=== PATIENT | male | born 1965 | race Caucasian/White ===

== ENCOUNTER → 2020-07-12 15:45 | Outpatient (CLI) | payer OTHER, SELFPAY ==
[2016-09-19 11:51] VITALS: BMI 30.8
--- NOTE | 2020-07-12 15:52 | RAD_ITS ---
STUDY: X-RAY - LEFT SHOULDER REASON FOR EXAM: Male, 55 years old. Bilateral shoulder pain, left worse TECHNIQUE: 4 view(s) of the shoulder. COMPARISON: None. FINDINGS: Normal glenohumeral articulation. Normal acromioclavicular joint. Normal acromion. Normal humeral head and visualized proximal humerus. The soft tissue structures are unremarkable. Normal visualized pulmonary apex. RAD/Shoulder min 2 Views IMPRESSION: Normal x-ray examination of the shoulder. Electronically Signed: Chong Hernandez MD at 11:16 EST , Service support ,
== END ==
PROVIDERS: PCP Family Medicine; Referring Provider Family Medicine; Visit Provider Family Medicine
DX: M25.511 Pain in right shoulder (principal); M25.512 Pain in left shoulder
CPT/HCPCS: 73030

== ENCOUNTER 2020-09-08 14:00 | Outpatient (RCR) | payer OTHER, SELFPAY ==
--- NOTE | 2020-07-22 11:18 | HP.PTEVAL_ITS ---
Patient's Visit Information ASHOK MENDES is a 55 year old M referred to Physical Therapy by Dr. Deb Marroquin MD with a diagnosis of B shoulder pain. Date of Evaluation: 07/22/20 Physical Therapist: Sage Roe DPT, OCS, CSCS - Visit Plan Frequency: 2x /Week Duration: 4-6 Weeks Plan: 2x/week for 3-6 for. 1. US L biceps tendon groove nonthermal. Manaul grade 1 joint mobs and PROM L shoulder for pain, pec stretches. Strength posture and RC and progress to I home program(possibly gym based on patient wishes). Activitiy modification at home for posture adn sleeping position. - Subjective Shoulder pain B L>R. Chops a lot of firewood and it hurts. Been hurting since or march. No specific injury. Pain is achy in top of L shoulder , hard to lift L arm due to anterior pain. R one hurts just not as intense. Wakes him up at night 4-5x/week. 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 Worse if on computer alot. Leaning forward on shoulders hurts. 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 Runs on TM without pain during. Basic ADLs are getting doen and lfting arm to put shirt on or wash hair can hurt. Has h/o pinched nerve in neck with L scap pain at times. - Pain L shoulder Pain Intensity (Out of 10): 0 Pain Intensity Range: 0, 4 Comment: reaching out is worse. R shoulder Pain Intensity (Out of 10): 0 Pain Intensity Range: 0, 3 - Objective Posture is forward head and protracted scap max. Tightness obvious in pecs. Tender to palpation max over L biceps tendon grrove adn min on R, Min in B supraspinatus. + HKand + neer impringement tests, + speeds L, + supination pain L. - ext rotation lag test. Full AROM shoulder flexion but painful end range of elevation. Scapula moving well intenitonally but slow to move with elevation of UE. Full IR and ER B shoulders but pain end IR. Full elbow and wrist aROM withotu pain. Strength is 4+/5 in flexion 4 and painful L abduction B 4+ IR and pain on L, 4 ext rotation without pain. elbow strength 5/5 B with some slight L shoulder pain with flexion. reflexes 2/3 bi and tri B. Sensation B UE WNL to gross light touch. Cervical AROM WFL and without pain today, - c/s compression test. Walks and transfers I and easily. - Goals Goal 1:: non esitant and full aROM elevation B shoulders without pain Goal Time Frame: 4-6 Weeks Goal 2:: Pt feel 80% better and pain 1/10 at worst and manageable. Goal Time Frame: 4-6 Weeks Goal 3:: Quick DASH score 5 or better. Goal Time Frame: 4-6 Weeks Goal 4:: Type at work withotu increased pain Goal Time Frame: 4-6 Weeks Goal 5:: I approp HEP to minimize future problems Goal Time Frame: 4-6 Weeks - Rehabilitation Potential Physical Therapy Diagnosis: L>R B shoulder biceps impiongement tendonitis Rehabilitation Potential: Good - Anticipated Interventions Patient/Client Instruction: Educate patient on: Condition, Plan of Care For the Purpose of:: To decrease pain, To increase tolerance to activity/condition/position, To improve ability of physical actions for home/community/work/leisure Therapeutic Exercise to Include: Strength training, Postural training, Flexibilty training, Passive ROM, Active ROM, Scapular Strength/Stabilization For the Purpose of:: To decrease pain, To improve muscle performance and motor function, To increase tolerance to activity/condition/position, To improve ability of physical actions for home/community/work/leisure Manual Therapy Techniques to Include: Mobilization For the Purpose of:: To decrease pain Cryotherapy (ice pack, ice massage): Yes Ultrasound (thermal/non thermal): Yes - nonthermal For the Purpose of:: To decrease pain, To decrease swelling/inflammation Thank you for the opportunity to evaluate your patient. For Medicare and Medicare HMO plans, please review the plan of care and approve it. It will need to be FAXED BACK to us at [phone] for Medicare purposes. For Medicare only, by signing this I certify the plan of care. Please let me know if there are questions or concerns regarding this plan of care. Physician Signature: Date:
--- NOTE | 2020-08-20 10:48 | HP.PTREVAL ---
Dr. Deb Marroquin MD, It has been my pleasure to treat ASHOK MENDES over the last 8 visits for B shoulder pain. Please see the progress note below for an update on the physical therapy plan of care! Subjective: Improvement as achiness sitting around is gone. Lifting up or out is still painful to 3/0 trasniently at 90 degrees. Sleep is still bothersome at times. Typing at work still hurts at times if he does it too long. Objective/Function: Full aROM L shoulder bu tpainful arc with abduction especially LLA transiently. Tender over supraspinatus L minimally. Strength is improving. Ext rotation 4 adn no pain, flexion 4 no pain, abduction 4- and pain. Overall slowly better. Progressing slowly toward goals and appropriate to cotninue HEP strengthening and monitor in therapy in 3 weeks for continued progress toward goals with fair prognosis. Plan Plan: f/u 2-3 weeks to check abd, strength, adn overall pain levels and progress HEP to diagonals or back to doctor if not improving. Goals Goal 1:: non esitant and full aROM elevation B shoulders without pain Goal Time Frame: 4-6 Weeks Goal Progress: still painful arc Goal 2:: Pt feel 80% better and pain 1/10 at worst and manageable. Goal Time Frame: 4-6 Weeks Goal Progress: Progressing Goal 3:: Quick DASH score 5 or better. Goal Time Frame: 4-6 Weeks Goal Progress: Progressing Goal 4:: Type at work withotu increased pain Goal Time Frame: 4-6 Weeks Goal Progress: Progressing Goal 5:: I approp HEP to minimize future problems Goal Time Frame: 4-6 Weeks Goal Progress: Goal Met Anticipated Interventions Patient/Client Instruction: Educate patient on: Condition, Plan of Care For the Purpose of:: To decrease pain, To increase tolerance to activity/condition/position, To improve ability of physical actions for home/community/work/leisure Therapeutic Exercise to Include: Strength training, Postural training, Flexibilty training, Passive ROM, Active ROM, Scapular Strength/Stabilization For the Purpose of:: To decrease pain, To improve muscle performance and motor function, To increase tolerance to activity/condition/position, To improve ability of physical actions for home/community/work/leisure Manual Therapy Techniques to Include: Mobilization For the Purpose of:: To decrease pain Cryotherapy (ice pack, ice massage): Yes Ultrasound (thermal/non thermal): Yes - nonthermal For the Purpose of:: To decrease pain, To decrease swelling/inflammation Please do not hesitate to contact me at [phone] by phone or if you have questions or concerns regarding this new plan of care! Sincerely, Sage Roe, DPT, OCS, CSCS
--- NOTE | 2020-09-08 14:17 | HP.PTDCSUM ---
It has been my pleasure to treat ASHOK MENDES referred by Dr. Deb Marroquin MD, with the diagnosis of B shoulder pain for a total of 9 visit(s). Discharge Date: 09/08/20 Please see the following information for a summary of their discharge status. Subjective: A little better. Not noticing pain as often. Can lift weight out to side now. Not as intense of pain. Pain is 0-4/10 usually worse lying in bed if he lies on it. Sometimes it lingers. Keeps him up sometimes if he lies wrong. HEP going OK, slightly painful at first but improving. activities are pretty normal, has to be careful throwing firewood up high adn sudden movement like to catch a goat can hurt. Trimming fence rope 10 days ago and something popped but pain wasn't happened. L shoulder Pain Intensity (Out of 10): 0 R shoulder Pain Intensity (Out of 10): 0 % Improvement: 55 Objective/Function: - ext rotation lag test. - sulcus. slight positive labral test. Full aROM. Strength is 4+/5 in rotations with some slight IR pain. abduction is 4 and painful, flexion is 4+ and painfree. Pt doing well overall but slow and frustrated with progression Goal 1:: non esitant and full aROM elevation B shoulders without pain Goal Progress: still painful arc abd Goal 2:: Pt feel 80% better and pain 1/10 at worst and manageable. Goal Progress: 55% Goal 3:: Quick DASH score 5 or better. Goal Progress: Progressing Goal 4:: Type at work withotu increased pain Goal Progress: Goal Met Goal 5:: I approp HEP to minimize future problems Goal Progress: Goal Met Plan: d/c, pt to [facility] strengthening and back to doctor for next medical step(inj, MRI) Discharge Comments: Pt back to doctor for next medical step. If there are questions or concerns regarding this patient's physical therapy, please feel free to call me at [phone]. Thank you for the referral of this patient. Sincerely, Sage Roe, DPT, OCS, CSCS
== END 2020-09-08 19:00 | disposition home or self-care (01) ==
LOC: PT 14:00
PROVIDERS: PCP Family Medicine; Referring Provider Family Medicine; Visit Provider Family Medicine
DX: M25.512 Pain in left shoulder (principal); M25.511 Pain in right shoulder
CPT/HCPCS: 97035; 97110; 97162; 97164; 97530

== ENCOUNTER → 2020-09-10 11:59 | Outpatient (CLI) | payer OTHER, SELFPAY ==
[2016-09-19 11:51] VITALS: BMI 30.8
[2020-09-10 15:16] LABS: Absolute Lymphocyte Count 2.57 X10^3/uL (0.83-4.51); Absolute Neutrophil Count 5.2 X10^3/uL (2.0-7.7); Basophil# 0.09 X10^3/uL; Eosinophil# 0.19 X10^3/uL; Eosinophils% 2.2 % (0-5); Hemoglobin 14.4 g/dL (13.0-16.5); Lymphocyte # 2.57 X10^3/ul (4.0); Lymphocyte % 29.2 % (19-41); Mean Corpuscular Hgb 29.6 pg (27.0-32.0); Mean Corpuscular Volume 92.4 fL (80-94); Mean Platelet Vol. 11.1 fl (6.2-12.0); NRBC Flagged by Analyzer 0 % (0-5); Neutrophil # 5.23 X10^3/uL (2.7-7.7); Neutrophil % 59.4 % (47-70); Platelet Count 283 K/mm3 (150-450); RBC Distribution Width CV 12.4 % (11.6-14.6); RBC Distribution Width SD 42.5 fl (35.1-43.9); Red Blood Count 4.87 M/mm3 (4.6-6.2); White Blood Count 8.8 K/mm3 (4.4-11.0)
[2020-09-10 15:30] LABS: Erythrocyte Sedimentation Rate 7 mm/hr (0-20)
[2020-09-10 15:45] LABS: CRP < 2.90 mg/L (0.0-3.0); Rheumatoid Factor < 10.0 IU/mL (<15); Uric Acid 5.6 mg/dL (3.5-7.2)
[2020-09-13 16:15] LABS: ANTINUCLEAR ANTIBODIES DIRECT Negative (Negative)
== END ==
PROVIDERS: PCP Family Medicine; Referring Provider Family Medicine; Visit Provider Family Medicine
DX: M25.511 Pain in right shoulder (principal); M25.512 Pain in left shoulder
CPT/HCPCS: 36415; 84550; 85025; 85652; 86038; 86140; 86431

== ENCOUNTER → 2021-03-23 16:30 | Outpatient (CLI) | payer OTHER, SELFPAY ==
[2021-03-23 18:32] LABS: PSA,Total - Annual Screen 1.04 ng/mL (0.00-4.00)
== END ==
PROVIDERS: PCP Family Medicine; Referring Provider Family Medicine; Visit Provider Family Medicine
DX: Z00.00 Encounter for general adult medical examination without abnormal findings (principal)
CPT/HCPCS: 36415; 84153; G0103

== ENCOUNTER → 2021-04-07 08:35 | Outpatient (CLI) | payer OTHER, SELFPAY ==
--- NOTE | 2021-04-07 08:38 | EKG12_ITS ---
Test Reason : PREOP Blood Pressure : / mmHG Vent. Rate : 066 BPM Atrial Rate : 066 BPM P-R Int : 180 ms QRS Dur : 076 ms QT Int : 374 ms P-R-T Axes : 022 -07 017 degrees QTc Int : 392 ms Normal sinus rhythm Septal infarct , age undetermined, cannot be excluded Abnormal ECG Confirmed by STEFFANIE SLAUGHTER, RENZO ([id number]), graphics editor IRINA JIMENEZ ([id number]) on 04/08/2021 9:32:00 AM Referred By: Edward Ramires Confirmed By:RENZO VALIENTE MD
[2021-04-07 09:16] LABS: Hematocrit 45.2 % (40-54); Hemoglobin 15.2 g/dL (13.0-16.5); Mean Corp Hgb Conc 33.6 g/dL (32-36); Mean Corpuscular Hgb 29.9 pg (27.0-32.0); Mean Platelet Vol. 9.8 fl (6.2-12.0); Platelet Count 292 K/mm3 (150-450); RBC Distribution Width CV 11.8 % (11.6-14.6); RBC Distribution Width SD 38.2 fl (35.1-43.9); Red Blood Count 5.08 M/mm3 (4.6-6.2); White Blood Count 8.8 K/mm3 (4.4-11.0)
[2021-04-07 09:41] LABS: Anion Gap 4 (5-15); BUN 19 mg/dL (7-18); BUN/Creat Ratio 16.1 RATIO (10-20); Calcium,Total 9.1 mg/dL (8.5-10.1); Chloride 104 mmol/L (98-107); Creatinine, Serum 1.18 mg/dL (0.70-1.30); EST Glomerular Filtration Rate 68 mL/min (>60); Est Glom Filt Rate - Afr Amer 82 mL/min (>60); Glucose 100 mg/dL (74-106); Potassium 4.3 mmol/L (3.5-5.1); Sodium Level 139 mmol/L (136-145)
== END ==
PROVIDERS: PCP Family Medicine; Referring Provider Urology; Visit Provider Urology
DX: Z01.810 Encounter for preprocedural cardiovascular examination (principal); J45.20 Mild intermittent asthma, uncomplicated; Z03.818 Encounter for observation for suspected exposure to other biological agents ruled out; Z01.812 Encounter for preprocedural laboratory examination
CPT/HCPCS: 36415; 80048; 85027; 87635; 93005; C9803; U0005; U0003

== ENCOUNTER → 2021-04-15 15:07 | Outpatient (CLI) | payer OTHER, SELFPAY ==
--- NOTE | 2021-04-15 08:12 | SPE_PTH ---
PATIENT: ASHOK MENDES LOC: [facility] U#:[id number] AGE/SX: 60/M ROOM: RE04/15/[address]: Dr. Edward Ramires MD : 1965 BED: DIS: SPEC #: [id number] RECD: 04/15/21 14:51 STATUS: CYNDEE FRIEDMAN #: [id number] AMPARO: 04/15/21 08:[address]: Edward Ramires DEPT: SURGICAL PATHOLOGY RECD BY: Gregg Cancino ENTERED: 04/19/21 08:28 SP TYPE: SPERMATOCCheryl ADRIAN DR: Dr. 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 AM:connor 04/20/2021 MICROSCOPIC DESCRIPTION Slides are reviewed. GROSS DESCRIPTION Received is one container labeled with the patient's name and not further designated. The specimen consists of a piece of adipose tissue measuring 5 x 3.5 x 2.5 cm. The specimen is partially disrupted. The external surface is inked. Sections reveal yellow adipose cut surfaces without areas of hemorrhage, necrosis or cystic degeneration. [employer] sections are submitted in three cassettes. / SJ:connor 04/19/21 TC:1 CPT: 03338
== END ==
PROVIDERS: PCP Family Medicine; Visit Provider Urology
DX: D17.6 Benign lipomatous neoplasm of spermatic cord (principal)
CPT/HCPCS: 88304

== ENCOUNTER → 2021-10-11 | Outpatient (CLI) | payer OTHER, SELFPAY ==
--- NOTE | 2021-10-11 12:49 | RAD_ITS ---
STUDY: X-RAY - PARANASAL SINUSES REASON FOR EXAM: Male, 56 years old. Headache, pressure behind eyes TECHNIQUE: 3 view(s) of the paranasal sinuses were obtained. COMPARISON: None. FINDINGS: Normal visualized frontal, maxillary, ethmoidal and sphenoid sinuses. Normal visualized facial bones. The soft tissue structures are unremarkable. RAD/Sinuses min 3 Views IMPRESSION: Normal x-rays of the paranasal sinuses. Electronically Signed: Chong Hernandez MD at 14:47 EDT ,
== END | disposition home or self-care (01) ==
LOC: MTRAD 12:49
PROVIDERS: PCP Family Medicine; Referring Provider Family Medicine; Visit Provider Family Medicine
DX: J32.9 Chronic sinusitis, unspecified (principal)
CPT/HCPCS: 70220

== ENCOUNTER → 2021-11-02 | Outpatient (CLI) | payer OTHER, SELFPAY ==
--- NOTE | 2021-11-02 14:51 | CT_ITS ---
STUDY: CT BRAIN WITHOUT and WITH CONTRAST REASON FOR EXAM: Male, 56 years old. new on set headaches TECHNIQUE: Transaxial CT imaging of the brain was performed without and with Contrast: 50 CC ISOVUE 300 IV administration of intravenous contrast material. Radiation: CTDIvol = [44.99] mGy, DLP = [1580.97] mGy-cm Individualized dose optimization techniques were used for this CT. COMPARISON: None FINDINGS: Normal calvarium. Normal soft tissues. Normal size ventricles and extra-axial spaces for the patient''s age. Normal white matter tracts of the cerebral hemispheres. Normal basal ganglia and thalami. Normal brainstem. Normal cerebellum. There is no intracranial hemorrhage. There are no findings of an acute ischemic infarction. Normal visualized paranasal sinuses. ASPECTS 10 CT/Brain/Head W/WO Contrast IMPRESSION: There are no acute intracranial findings. Electronically Signed: Maximiliano Valenzuela MD at 15:56 EDT ,
== END | disposition home or self-care (01) ==
LOC: CT 14:50
PROVIDERS: PCP Family Medicine; Referring Provider Family Medicine; Visit Provider Family Medicine
DX: R51.9 Headache, unspecified (principal)
CPT/HCPCS: 70470; Q9967

== ENCOUNTER → 2022-05-03 | Outpatient (CLI) | payer OTHER, SELFPAY ==
[2022-05-03 18:32] LABS: PSA,Total - Annual Screen 1.22 ng/mL (0.00-4.00)
== END | disposition home or self-care (01) ==
LOC: MFPLAB 16:21
PROVIDERS: PCP Family Medicine; Visit Provider Family Medicine
DX: Z00.00 Encounter for general adult medical examination without abnormal findings (principal); Z12.5 Encounter for screening for malignant neoplasm of prostate
CPT/HCPCS: 36415; 84153; G0103

== ENCOUNTER → 2022-08-11 | Outpatient (CLI) | payer OTHER, SELFPAY ==
--- NOTE | 2022-08-11 12:14 | CT_ITS ---
STUDY: CT ABDOMEN WITH CONTRAST REASON FOR EXAM: Male, 57 years old. 3 week history of left lower quadrant pain. History of lymphoma. RADIATION DOSAGE (If Supplied By Facility): CTDIvol = ( 15.20 ) mGy, DLP = ( 1136.29 ) mGycm TECHNIQUE: Transaxial images were obtained post I.V. administration of Oral and amp; IV BREEZA NEUTRAL and amp; 100mL Isovue-300, and with oral contrast. Sagittal and coronal images were reconstructed. Individualized dose optimization techniques were used for this CT. COMPARISON: Comparison is made with prior study dated May 18, 2017. FINDINGS: The visualized lung bases are unremarkable. The visualized portions of the heart are within normal limits. There is hepatomegaly with diffuse hepatic enlargement. Normal gallbladder and extrahepatic biliary system. Normal spleen. Normal pancreas. Normal bilateral adrenal glands. There are 2 adjacent tiny nonobstructive intrarenal calculi in the upper pole calyx of the right kidney. 3 mm nonobstructive catheter is in the upper pole calyx of the left kidney. Normal visualized stomach. Normal small intestine. There are scattered colonic diverticula consistent with diverticulosis. The appendix is visualized and appears normal. Normal abdominal aorta. Normal inferior vena cava. Normal retroperitoneum. Prostate enlargement. The prostate measures 4.4 cm x 5.8 cm. Central prostatic calcification. Normal abdominal wall. Normal osseous structures. CT/Abdomen WITH IV Contrast IMPRESSION: Stable bilateral small intrarenal calculi. Electronically Signed: Chong Hernandez MD at 14:53 EST ,
[2022-08-11 18:41] LABS: Hepatitis B Surface Antibody Non-Reactive; Hepatitis B Surface Antigen Non-Reactive (Nonreactive); Hepatitis C Antibody Non-Reactive (Nonreactive)
[2022-08-14 13:08] LABS: Hepatitis A AB, Total Negative (Negative); Hepatitis B Core Ab Total Negative (Negative); Hepatitis Be Ab Negative (Negative); Hepatitis Be Ag Negative (Negative)
[2022-08-14 18:52] LABS: Hepatitis B Core AB IgM Negative (Negative)
== END | disposition home or self-care (01) ==
PROVIDERS: PCP Family Medicine; Referring Provider Family Medicine; Visit Provider Family Medicine
DX: R10.12 Left upper quadrant pain (principal)
CPT/HCPCS: 36415; 74160; 86704; 86705; 86706; 86707; 86708; 86803; 87340; 87350; Q9967

== ENCOUNTER → 2022-09-05 | Outpatient (CLI) | payer OTHER, SELFPAY ==
[2022-09-05 18:12] LABS: Hematocrit 44.2 % (40-54); Hemoglobin 15.1 g/dL (13.0-16.5); Mean Corp Hgb Conc 34.2 g/dL (32-36); Mean Corpuscular Hgb 30.1 pg (27.0-32.0); Mean Corpuscular Volume 88.2 fL (80-94); Mean Platelet Vol. 10.7 fl (6.2-12.0); Platelet Count 264 K/mm3 (150-450); RBC Distribution Width SD 39.1 fl (35.1-43.9); Red Blood Count 5.01 M/mm3 (4.6-6.2)
[2022-09-05 18:21] LABS: AST(SGOT) 17 U/L (15-37); Alanine Aminotransfer ALT/SGPT 30 U/L (16-61); Albumin, Serum 3.7 g/dL (3.2-5.0); Alkaline Phosphatase 91 U/L (45-117); Anion Gap 5 (5-15); BUN 22 mg/dL (7-18); BUN/Creat Ratio 19.8 RATIO (10-20); Chloride 108 mmol/L (98-107); Creatinine, Serum 1.11 mg/dL (0.70-1.30); EST Glomerular Filtration Rate 73 mL/min (>60); Est Glom Filt Rate - Afr Amer 88 mL/min (>60); Ferritin 153 ng/mL (26-388); Globulin 3.6 g/dL (2.2-4.2); Glucose 100 mg/dL (74-106); Potassium 4.2 mmol/L (3.5-5.1); Protein, Total 7.3 g/dL (6.4-8.2); Sodium Level 138 mmol/L (136-145)
[2022-09-07 14:09] LABS: ANTINUCLEAR ANTIBODIES DIRECT Negative (Negative)
[2022-09-08 09:45] LABS: Alpha Antitrypsin Serum 126 mg/dL (101-187); Anti-Mitochondrial AB <20.0 Units (0.0-20.0)
[2022-09-08 09:46] LABS: Anti-Smooth Muscle ABS 7 Units (0-19)
== END | disposition home or self-care (01) ==
LOC: MTLAB 14:43
PROVIDERS: PCP Family Medicine; Referring Provider Internal Medicine Gastroenterology; Visit Provider Internal Medicine Gastroenterology
DX: R16.0 Hepatomegaly, not elsewhere classified (principal)
CPT/HCPCS: 36415; 80053; 82103; 82728; 83516; 85027; 86038

== ENCOUNTER → 2023-04-18 | Outpatient (CLI) | payer OTHER, SELFPAY ==
--- NOTE | 2023-04-18 08:51 | US_ITS ---
STUDY: ABDOMINAL ULTRASOUND - RIGHT UPPER QUADRANT REASON FOR VISIT: Male, 58 years old ruq pain, x 2 months, intermittent TECHNIQUE: Ultrasound evaluation of the right upper quadrant was performed with real-time and static osei-scale imaging. TECHNICAL QUALITY: Adequate. COMPARISON: Comparison is made with prior CT scan of abdomen pelvis dated August 11, 2022. FINDINGS: Liver: The liver measures 16.2 cm. There is increased echogenicity consistent with fatty infiltration. The bile ducts are within normal limits. There is hepatic color flow. The direction of portal flow is hepatopetal. There is no demonstrated mass lesion. Gallbladder: Normal distended gallbladder. The gallbladder wall measures 2.8 mm. There is a negative sonographic Rodriguez''s sign. There is no pericholecystic fluid. There are no gallstones. Common Bile Duct (C.B.D.): The common bile duct measures 4.6 mm. Pancreas: Normal size of the head, body and tail of the pancreas. There is normal echogenicity of the pancreas. There is no demonstrated pancreatic mass or cyst. Right Kidney: Normal size of the right kidney. The right kidney measures 10.2 cm x 5.9 cm x 5.3 cm. Normal renal cortex. The right cortex measures 1.9 cm. There is no demonstrated renal mass or cyst. There is no right hydronephrosis. US/Abdomen Limited IMPRESSION: Fatty infiltration of the liver. Electronically Signed: Chong Hernandez MD at 15:09 EST ,
== END | disposition home or self-care (01) ==
LOC: US 08:50
PROVIDERS: PCP Family Medicine; Referring Provider Family Medicine; Visit Provider Family Medicine
DX: R10.11 Right upper quadrant pain (principal)
CPT/HCPCS: 76705

== ENCOUNTER → 2023-05-17 | Outpatient (CLI) | payer OTHER, SELFPAY ==
--- NOTE | 2023-05-17 09:51 | NM_ITS ---
CLINICAL: 58-year-old male with history of abdominal pain. RADIONUCLIDE HEPATOBILIARY SCINTIGRAPHY COMPARISON: Abdominal ultrasound report 04/18/2023 FINDINGS: Following the intravenous administration of 5.5 mCi of 99m Tc Mebrofenin, hepatobiliary images reveal: 1. Relatively prompt and homogeneous radiopharmaceutical concentration is noted by a normal sized liver. No parenchymal defects are identified. 2. Gallbladder activity is identified at 15 minutes post radiopharmaceutical administration. 3. Small intestinal tract is observed at 45 minutes following tracer injection. 4. Washout of the radiopharmaceutical by the hepatic parenchyma appears qualitatively normal. Cholecystokinin (0.02 ug/kg) was administered intravenously over a 30-minute period. The post CCK gallbladder ejection fraction calculated at 20 minutes following Cholecystokinin administration was noted to be < 5 % (normal greater than 35%). NM/Hepatobilliary Imaging IMPRESSION: 1. ABNORMAL 99m Tc Mebrofenin hepatobiliary imaging examination with Cholecystokinin. A. A gallbladder ejection fraction calculated to be less than 35% following the administration of Cholecystokinin is consistent with the presence of functional hepatobiliary disease (gallbladder and/or sphincter of Oddi dyskinesia) and/or organic hepatobiliary disease (chronic acalculous cholecystitis and/or cystic duct syndrome) in patients with intermediate to high pretest probabilities of hepatobiliary illness. (Nellie Mesa et al, Journal of Nuclear Medicine 32:1695, 1991). Electronically Signed: Ralph Rao DO at 23:48 EST ,
== END | disposition home or self-care (01) ==
LOC: NM 09:50
PROVIDERS: PCP Family Medicine; Referring Provider Family Medicine; Visit Provider Family Medicine
DX: R10.11 Right upper quadrant pain (principal)
CPT/HCPCS: 78226; A9537; J2805

== ENCOUNTER → 2023-05-22 | Outpatient (CLI) | payer OTHER, SELFPAY ==
[2023-05-22 15:21] LABS: PSA,Total - Annual Screen 1.59 ng/mL (0.00-4.00)
== END | disposition home or self-care (01) ==
LOC: MFPLAB 11:35
PROVIDERS: PCP Family Medicine; Visit Provider Family Medicine
DX: Z12.5 Encounter for screening for malignant neoplasm of prostate (principal)
CPT/HCPCS: 36415; 84153; G0103

== ENCOUNTER 2023-06-12 06:00 | Day surgery (SDC) | payer OTHER, SELFPAY ==
[2023-06-12] VITALS (10 sets, daily range): BP systolic 127–175; BP diastolic 64–96; PULSE 53–67; RESP 15–16; TEMP 36.2–36.6; O2SAT 92–100; BMI 26.4
--- OUTSIDE RECORDS SUMMARY | 2023-06-12 06:05 | XMS RPT_ITS | CCD ---
Author Name Unknown Address [address] [place] [address] Organization [facility] Care Team Providers Care Wage Hand Name Role Phone Carmelita LYLE/Will GENAO Unavailable Deb Marroquin MD Primary Care Provider Del Laws MD Unavailable [phone] Attending Unavailable DEB MARROQUIN Referring Unavailable DEB MARROQUIN Primary Care Unavailable Free, Text Entry Unavailable Unavailable Julia Khan Unavailable Unavailable Ms. Julia Khan Attending Unavail able Pending, Provider Primary Care Unavailable Medications Current Medications Medication Drug Class(es) Dates Sig (Normalized) Sig (Original) [id number] 200 actuat albuterol 0.09 mg/actuat metered dose inhaler (2 sources) beta2-Adrenergic Agonist take 2 puff(s) by inhalation every six hours as needed ProAir HFA 90 mcg/inh inhalation aerosol ; 2 puff(s) inhaled every 6 hours, As Needed Quantity: 0 Refills: 0 Ordered: 09-Feb-2022 Naz Carrero Generic Substitution Allowed Problems Active Problems Problem Classification Problem Date Documented Da te Episodic/Chronic Asthma (1 source) Unspecified asthma, uncomplicated; Translations: [Unspecified asthma, uncomplicated] Onset: 02-09-2022 Chronic Non-Hodgkin`s lymphoma (2 sources) Mucosa-associated lymphoma; 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]] Onset: 10-19-2016 Chronic Other gastrointestinal disorders (2 sources) Diarrhea and vomiting; Translations: [Vomiting alone] 02-09-2022 Episodic Other nutritional; endocrine; and metabolic disorders (1 source) Obese class I; Translations: [Obesity, unspecified] Onset: 12-01-2021 12-01-2021 Chronic Unclassified (2 sources) FLU-LIKE SYM 02-09-2022 Past or Other Problems Problem Classification Problem Date Documented Da te Episodic/Chronic Abdominal pain (3 sources) Abdominal pain; Translations: [Abdominal pain, unspecified site] Onset: 02-09-2022 02-09-2022 Episodic Calculus of urinary tract (1 source) Personal history of urinary calculi; Translations: [Personal history of urinary calculi] Onset: 02-09-2022 Episodic Cancer of stomach (1 source) Personal history of other malignant neoplasm of stomach; Translations: [Personal history of other malignant neoplasm of stomach] Onset: 02-09-2022 Episodic Nausea and vomiting (1 source) Vomiting, unspecified; Translations: [Vomiting, unspecified] Onset: 02-09-2022 Episodic Noninfectious gastroenteritis (2 sources) Acute gastroenteritis; Translations: [Other and unspecified noninfectious gastroenteritis and colitis] Onset: 02-09-2022 02-09-2022 Episodic Other gastrointestinal disorders (1 source) Diarrhea, unspecified; Translations: [Diarrhea, unspecified] Onset: 02-09-2022 Episodic Syncope (3 sources) Syncope; Translations: [Syncope and collapse] Onset: 02-09-2022 02-09-2022 Episodic Results Test Name Value Interpretation Reference Range Facil ity Vital Signs Date Time Vital Sign Value Performing Clinician Facility 02-09-2022 22:00-0400 Body temperature 98.78 [degF] Text Entry Free [facility] 02-09-2022 22:00-0400 Diastolic blood pressure 78 mm[Hg] Text Entry Free [facility] 02-09-2022 22:00-0400 Heart rate 77 /min Text Entry Free [facility] 02-09-2022 22:00-0400 Respiratory rate 18 /min Text Entry Free [facility] 02-09-2022 22:00-0400 SaO2% (BldA) [Mass fraction] 96 % Text Entry Free [facility] 02-09-2022 22:00-0400 Systolic blood pressure 131 mm[Hg] Text Entry Free [facility] 12-01-2021 14:02-0400 Body height 185.4 cm Del Laws MD Work Phone: [facility] 12-01-2021 14:02-0400 Body mass index (BMI) [Ratio] 30.13 kg/m2 Del Laws MD Work Phone: [facility] 12-01-2021 14:02-0400 Body temperature 98.49 [degF] Del Laws MD Work Phone: [facility] 12-01-2021 14:02-0400 Body weight 103.6 kg Del Laws MD Work Phone: [facility] 12-01-2021 14:02-0400 Diastolic blood pressure 85 mm[Hg] Del Laws MD Work Phone: [facility] 12-01-2021 14:02-0400 Heart rate 77 /min Del Laws MD Work Phone: [facility] 12-01-2021 14:02-0400 Respiratory rate 16 /min Del Laws MD Work Phone: [facility] 12-01-2021 14:02-0400 SaO2% (BldA) [Mass fraction] 96 % Del Laws MD Work Phone: [facility] 12-01-2021 14:02-0400 Systolic blood pressure 134 mm[Hg] Del Laws MD Work Phone: [facility] Encounters Encounter Date Encounter Type Care Provider Facility Start: 02-09-2022 End: 02-09-2022 Emergency department patient visit Julia Khan [facility] Emergency 15 Start: 12-01-2021 ambulatory DEL LAWS Facili ty:[facility] Start: 12-01-2021 End: 12-01-2021 Office consultation new/estab patient 60 min Del Laws MD Work Phone: Division of Hematology & Oncology Procedures Date Procedure Procedure Detail Performing Clinician Start: 02-09-2022 End: 02-09-2022 EKG impression Mata Smomers Plan of Treatment Date Care Activity Detail Author Start: 02-09-2022 Influenza vaccination INFLUENZ A VACCINE (Season Ended) [facility] Start: 02-05-2016 Prostate specific an tigen measurement PROSTATE CANCER SCREENING DISCUSSION [facility] Start: 02-05-2016 Zoster vaccine hzv l fritz for subcutaneous use ZOSTER (SHINGLES) VACCINE (1 of 2) [facility] Start: 2011 Colonoscopy COLORECTAL CAN CER SCREENING DISCUSSION [facility] Start: 2006 Fasting lipid profile LIPID SCREENIN G [facility] Start: 1985 Third diphtheria, te tanus and acellular pertussis (DTaP) vaccination TDAP (ADULT) [facility] Start: 02-05-1984 Tetanus vaccination TETANUS [facility] Start: 1981 HIV screening HIV SCREENING DISCUSSI ON [facility] Start: 02-05-1972 PNEUMOCOCCAL VACCINE SERIES (1 - PCV) PNEUMOCOCCAL VACCINE SERIES (1 - PCV) [facility] Start: 1971 COVID-19 VACCINE (#1) COVID-19 VACCI NE (#1) [facility] Start: 1966 Hepatitis C antibody , confirmatory test HEPATITIS C VIRUS SCREENING [facility] Immunizations Immunization Date Immunization Notes Care Provider Janette hollins 02-09-2015 influenza virus vaccine, unspecified formulation Del Laws MD Work Phone: [facility] Payers Date Payer Category Payer Unknown [id number] 2017 Unknown [id number] 1966 Unknown [id number] 1966 Unknown [id number] Unknown [id number] Social History Date Type Detail Facility Start: 12-01-2021 Tobacco smoking status NHIS Never smoked tobacco [facility] Start: 12-01-2021 Tobacco use and exposure Smokeless tobacco non-user [facility] Start: 12-01-2021 Alcohol intake Current drinke r of alcohol (finding) [facility] Start: 04-30-2017 History SDOH Alcohol Comment rare [facility] Start: 1965 Sex Assigned At Not on file [facility] Tobacco smoking consumption unknown [facility] History of Present illness Narrative 12-01-2021 Del Laws MD - 12/01/2021 2:15 PM EDT Note Date & Type Note Facility 12-01-2021 History of Present illness Narrative [facility] PATIENT: Ashok Gleason [place] CHIEF COMPLAINT: History of gastric MALT lymphoma REFERRED BY: Deb Marroquin MD History of Present Illness: I have reviewed the patient's presentation and oncologic history and summarized the important points below: Non- Hodgkin Lymphoma (NHL) NHL subtype: Extranodal Marginal Zone Lymphoma, 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 He was subsequently followed up with annual endoscopies and had a routine endoscopy in 07/2016 that showed a few minute lymphocytic aggregates with cells that were CD20 and CD79a positive suspicious for recurrent MALT. However, repeat EGD with biopsy 04/2017 showed similar findings with atypical lymphoid aggregates. IGH gene rearrangement studies were negative. Overall, these findings were favored as reactive rather than lymphoma. The patient currently does not have any N&V, abdominal pain, melena, fever, night sweats or weight loss. His only symptom is headache which he describes as frontal pressure without clear triggering factors. No visual symptoms. No focal weakness. Pain improved with tylenol. Review of Systems Review of Systems was conducted and is otherwise unremarkable except as further documented in the HPI. Significant Past Medical and Surgical History: Non-signficant No Known Allergies Current Outpatient Medications: albuterol 108 (90 Base) MCG/ACT Aero Soln, take 1 puff by inhalation every 6 hours as needed for Wheezing.., Disp: , Rfl: Fluticasone-Salmeterol (ADVAIR HFA IN), Inhale as needed., Disp: , Rfl: Social History: reports that he has never smoked. He has never used smokeless tobacco. He reports current alcohol use. He reports that he does not use drugs. Pertinent Family History: No history of lymphoma Physical Examination BP 134/85 (BP Position: Sitting) Pulse 77 Temp 98.5 F (36.9 C) (Oral) Resp 16 Ht 1.854 m (6' 1 ) Wt 103.6 kg (228 lb 6.4 oz) SpO2 96% BMI 30.13 kg/m Smoking Status Never Smoker Body mass index is 30.13 kg/m . ECOG Performance Status 0 GENERAL. Awake and alert x 3, in no acute distress PSYCH: Normal mood, affect congruent HEENT: normocephalic, atraumatic; extraocular movements intact; sclera anicteric. NECK: supple; trachea midline RESPIRATORY: clear to auscultation bilaterally; no wheezes/rhonchi/rales CARDIOVASCULAR: heart sounds regular; no murmurs appreciated ABDOMEN: soft, non-tender, non-distended; no hepatosplenomegaly BACK: No deformities or tenderness EXTREMITIES: No cyanosis, deformities or edema NEURO: strength and sensation normal in upper and lower extremities SKIN: No rashes LYMPH: Left (cm x cm) Right (cm x cm) Cervical Not detected Not detected Supraclavicular Not detected Not detected Axillary Not detected Not detected Inguinal Not detected Not detected Data Review I have personally reviewed the patient's labs, pathology and imaging studies and summarized the relevant findings in the HPI. Impression and Plan: # History of gastric MALT lymphoma - Diagnosed in 2009 - S/p XRT after which he achieved complete response - EGDs in 2017 was concerning for atypical lymphocytes but IGH gene rearrangement studies were negative. Overall, these findings were favored as reactive rather than lymphoma. - No evidence of disease relapse/progression based on history, physical exam or labs. We discussed that he is considered cured from his lymphoma and it is very unlikely that his lymphoma will recur. He does not need any specific labs, imaging, or EGD for surveillance and can follow with his PCP annually for routine physical exam. I am happy to see him in the future if needed. I do not think his headaches are related to his lymphoma. He does not have any focal deficits. CREAM GATHERER or dural involvement by marginal zone lymphoma is rare and more common causes such as tension headache, migraines and other are much more likely to be the cause of his headache (which is now improving). Further imaging with brain MRI from a lymphoma standpoint is not warranted at this time. My final recommendations will be communicated back to the referring physician by way of shared medical record or a letter. Del Laws MD Cleat Thrower Division of Hematology, Lymphoma Program [facility] CC: Deb Marroquin MD documented in this encounter [facility] Instructions 12-01-2021 Patient Instructions Note Date & Type Note Facility 12-01-2021 Instructions Mariajose Zaman RN - 12/01/2021 1:55 PM EDT Your Lymphoma Care Team MD Tootie Fair, MARIAJOSE Cruz RN Monica Bird, RN Contact Numbers: Clinic Phone & Appointment Changes: [phone] Clinic For Medication Refills: Please plan ahead for all medication refills and request them at your appointment with your physician. Please allow one week for prescription refills over the telephone. We will call them in to the pharmacy of your request or to the pharmacy listed in your chart if not specified differently. You will not be contacted about the refill except for any questions or concerns. Please call your pharmacy to verify when to flower picker. All Disability/FMLA Paperwork: Please allow up to 2 weeks for all disability, FMLA, etc. to be filled out. Please specify what your request is as to what and where we should send completed paperwork. (This is to inform us if we should send the completed papers to you or directly to your employer). The primary nurse is the one who will normally fill this paperwork out for you, and will only call to inform you the paperwork is completed and sent if requested. OS MY Chart: The medical information you will have access to within the My Chart program is only selected portions of your entire chart, such as basic laboratory results, summary medical history, visit history, and selected billing information. Please understand we do not place all results from labs, tests and procedures. To provide you with the best quality care available we need to be able to discuss these results with you personally. If you are unable to obtain the results of a test that you can't find within the My Chart please feel free to call us and we will get back to you with that information. When sending a message to the provider, please know that these messages will be received and answered by the primary nurse practitioner. The nurse practitioner will consult your physician when needed. Please call us with any questions or concerns that you may have. RESOURCES: National Cancer [place]- www.cancer.gov [employer]- https://cancer.os.edu CancerCare[employer] Inc- www.cancercare.org Leukemia and Lymphoma Society- LLS.org Peer support groups- www.cancer.os.edu/BOBBI or email [email or web address] Fall Prevention at Home Here are some tips to use in your home to help prevent falls. Throughout the home Remove throw rugs so you do not trip on them. Replace or remove carpet that is torn or has turned-up edges. Avoid thick carpet. Shoes may catch on these and cause you to stumble or fall. Move furniture or other things that may block pathways. Be sure you have good lighting throughout your home. Use night lights or leave some lights on in the house to help you see at night or when you come home in the evening. Use switches that glow in the dark, so they can be seen more easily. Keep electrical cords and small things out of your path. Use your cane or walker rather than using furniture to give you support when walking. Stairs Mount sturdy handrails to help with going up and down stairs. They should extend beyond the top and bottom stair. Improve the visibility on your stairs. Have good lighting on the stairs. Non-skid surfaces can be applied to wood stairs to prevent sliding. [place] a bright colored line on the edge of each step so they are more easily seen, especially if you have poor vision. In the bathroom Place non-skid decals or a mat in the tub or shower. Install grab bars around the toilet and in the shower or bathtub. Towel bars are to hold towels, and they will break if you use them as grab bars. Use a tub seat and an elevated toilet seat. Leave the bathroom door unlocked so it can be opened if you do fall. In the bedroom Avoid wearing long nightgowns or robes. These can cause you to trip. Avoid wearing loose shoes that cause you to scuff or shuffle your feet as you walk. Wear shoes or slippers that fit well and stay securely on your feet. In the kitchen Have commonly used items at counter level or within easy reach. Do not climb or reach to high shelves. If you use a step stool, use a stable step stool with a handrail. Other tips Be careful that you do not trip over your pet. Be aware of where you pet is when you are moving around. Use caution when sitting down. Before sitting down on a chair, make sure the backs of your legs are touching the seat of the chair behind you. Keep a telephone close by or consider carrying a portable phone. Take your time. Get in the habit of moving at speeds that are safe for your energy level and ability. Do not sal to answer the phone or door. Ask for help when getting up from bed, a chair or the toilet if you feel at all shaky, weak, dizzy or lightheaded. Talk to your doctor or others on your health care team if you have questions. You may request more written information from the [employer] [place] Information at or email: [email or web address]. 2002 - July 07, 2015. [facility]. This handout is for informational purposes only. Talk with your doctor or health care team if you have any questions about your care. documented in this encounter [facility] Evaluation note Note Date & Type Note Facility documented in this encounter [facility] Summary Purpose Family History No Family History Records FoundNo Family History Records Found Advance Directives No Advanced Directives Records FoundNo Advanced Directives Records Found Reason for Referral * gastroenteritisgastroenteritis Additional Source Comments Reason for Visit (unrecogniz ed section and content) Specialty Diagnoses / Procedures Referred By Contjaci t Referred To Contact Hematology Diagnoses Dx. MALT Lymphoma/ referred by Dr. Deb Marroquin/Dx 2005 Procedures NEW HEMATOLOGY Deb Marroquin MD [address] [place] [address] Del Laws MD [address] [place] [address] Referral ID Status Reason Start Date Expiration Date V isits Requested Visits Authorized [id number] New Request 11/10/2021 12/05/2022 1 1 Care Teams (unrecognized sec tion and content) (unrecognized sect ion and content) No Status Records FoundNo Status Records Found INFORMATION SOURCE (unrecogn ized section and content) DATE CREATED AUTHOR AUTHOR'S ORGANIZ ATION 07/26/2022 [facility] <item> Privacy Markings (unrecogniz ed section and content) Section Author: Annie Khan PROHIBITION ON REDISCLOSURE OF CONFIDENTIAL INFORMATION This notice accompanies a disclosure of information concerning a client made to you with the consent of such client. FOR RECORDS PERTAINING TO PATIENTS WHO ARE OR HAVE BEEN ENROLLED IN A CHEMICAL DEPENDENCY/SUBSTANCEABUSE PROGRAM, SOME INFORMATION MAY BE OMITTED. This clinical summary was aggregated from multiple sources. Caution should be exercised in using it in the provision of clinical care. This summary normalizes information from multiple sources, and as a consequence, information in this document may materially change the coding, format and clinical context of patient data. In addition, data may be omitted in some cases. CLINICAL DECISIONS SHOULD BE BASED ON THE PRIMARY CLINICAL RECORDS. [facility] [employer] [facility]. provides no warranty or guarantee of the accuracy or completeness of information in this document.
[2023-06-12] MEDS: Lactated Ringers 1,000 ML 15 ML IV ×2 (06:49→12:50)
--- NOTE | 2023-06-12 07:06 | HP.PCM_ITS ---
History and Physical Date of Admission: 06/12/23 Date of Service: 06/07/23 MR#: [id number] Acct: [id number] Name: ASHOK MENDES Rep #: [id number] : 1965 Provider: Dr. Pat Mccartney MD Age/Sex: 58/M Location: [facility] Status: Signed Intake Vital Signs 06/07/2314:00 Weight: 204 lb BP 110/69 Blood Pressure Location Rt brachial Position Sitting Respiration 17 Pulse 63 Pulse Source Monitor Pulse Oximetry (%) 97 Oxygen Delivery Method room air Intake Visit Reasons: GALLBLADDER Chief Complaint: gallbladder Is patient in pain?: No Allergies No Known Allergies Allergy (Unverified 06/07/23 14:01) Medications fluticasone 250 mcg-salmeterol 50 mcg/dose blistr powdr for inhalation inhalation 09/30/20 [History Confirmed 06/07/23] albuterol sulfate 90 mcg/actuation aerosol inhaler 2 puff inhalation Q6H PRN 06/07/23 [History Confirmed 06/07/23] PFSH Medical History (Updated 06/07/23 @ 14:[address] Pat Mccartney MD) Asthma Hx of malignant lymphoma Surgical History Hx of rhinoplasty Family History (Updated 06/07/23 @ 13:59 by Erica Matias) Mother Heart disease Hypertension Social History (Updated 06/07/23 @ 14:00 by Erica Matias) Smoking Status: Never smoker alcohol intake: never substance use type: does not use HPI HPI HPI: 58-year-old male presents for biliary dyskinesia. Patient states he has had a couple episode of left upper quadrant abdominal pain. Patient states it occurs after he eats he did have nausea with it denies any vomiting. Patient had an episode in July did change his diet at that time and lost about 30 pounds. Patient had another episode in April. Patient went to see his PCP did not need to go to the ER at that time. Patient had reflux years ago depending on the food he ate but has not had that for a while. 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 pylori negative. Patient did follow-up at [facility] was told to have and 17 did not need any further EGDs for this. Patient did have colonoscopy 5 to 6 years ago which was negative by Dr. Apple. Patient had ultrasound the gallbladder normal wall no pericholecystic fluid no gallstones, HIDA scan was then completed which showed less than 5% ejection fraction actually was no emptying on the images. Patient denies having abdominal pain currently with eating and states he is able to eat does not try to avoid fatty and greasy foods but does occasionally have a small amount with no symptoms. ROS General General: Yes weight change; No appetite, fatigue, colon cancer or breast cancer HEENT HEENT: No difficulty swallowing, eye injury, eye surgery, swollen glands or hoarseness Endo Endocrine: No thyroid disease, diabetes mellitus, thyroid cancer, Hair loss, heat intolerance or cold intolerance Skin Skin: No rash or changing moles Musc Musculoskeletal: No back problems, arthritis, rheumatoid arthritis, gout or joint pain Cardio Cardiovascular: No murmur, pacemaker, heart disease, atrial fibrillation, high blood pressure, heart attack, heart stent, palpitations, shortness of breat with exertion or chest pain Psych Psychiatric: No depression, anxiety or hearing voices Resp Respiratory: No shortness of breath, No sleep apnea, No cough, No COPD, Yes asthma, No emphysema and No wheezing Gastro Gastrointestinal: No abdominal pain, No nausea or vomiting, No diarrhea, No constipation, No blood in stool, No acid reflux, No hemorrhoids, No ulcers, Yes gallbladder problem and No black,tarry stools Anupam Hematologic: No blood thinners, No blood disorders, No bleeding, No anemia and No blood clots Neuro Neurologic: No numbness and No tingling Exam Const General: cooperative, healthy appearing, comfortable and no acute distress [facility] Head: normocephalic and atraumatic Neck Neck: supple Resp Effort & Inspection: normal respiratory effort Cardio Rate: regular rate GI Inspection: non-distended Palpation: soft and nontender Skin General: no rashes or lesions noted Neuro General: CN's II-XI intact bilaterally Extrem General: normal to inspection Psych Mental Status: mental status grossly normal Attitude: cooperative Assessment and Plan Assessment and Plan (1) Biliary dyskinesia: Status: Acute Plan Patient story is a little atypical as he is complains of little more left upper quadrant pain when having these episodes in July and April. Patient's HIDA does show an ejection fraction of less than 5% actually 0 on the images. However patient is not really having pain and has had some fatty greasy foods but has been avoiding/limiting that in his diet. Reviewed the anatomy with the patient and discussed the procedure: laparoscopic cholecystectomy with possible cholangiograms, possible open. Review risks including but not limited to bleeding, infection, hernia, bile leak, retained gallstones requiring another procedure ERCP- Endoscopic Retrograde Cholangiopancreatography, injury to another organ (bile ducts, common bile duct, small bowel, etc.) and conversion to an open procedure. All questions were answered. Pat Mccartney M.D. Pager: [phone] [facility] [address] [place] [address], [address] [place] [address] Office: [phone] Coding Level of Care Code Off vis,new,level 3 Diagnoses Biliary dyskinesia K82.8 06/07/23 1423 <Electronically signed by Pat Mccartney MD> Date Pat Mccartney MD
[2023-06-12] MEDS: Cefazolin 2 GM in 0.9% Normal Saline (100mL Bag) 100 ML IV (07:24)
--- NOTE | 2023-06-12 07:30 | RAD_ITS ---
INDICATION: LAP HANANE WITH IOC EXAMINATION/TECHNIQUE: Continuous fluoroscopic images are presented for evaluation. Total Fluoroscopic Time: 4.5 seconds . COMPARISON: Nuclear medicine biliary scan of 05/17/2023 FINDINGS: Small mobile filling defect is seen in the common bile duct likely representing air bubble. Difficult to exclude small retained stone. No evidence of obstruction. There is no biliary ductal dilatation. There is free passage into the duodenum. RAD/Cholangiogram/ O R,Initial IMPRESSION: Small mobile filling defect in the common bile duct as described above. Electronically Signed: Horace Acuña MD at 8:20 EST ,
--- NOTE | 2023-06-12 07:30 | GALL_PTH ---
PATHOLOGY RESULTS PATIENT: ASHOK MENDES [place] [facility] [place][id number] AGE/SX: 58/M ROOM: RE06/12/[address]: Dr. Pat Mccartney MD : 1965 BED: DIS: 06/12/2023 SPEC #: [id number] RECD: 06/12/23 11:39 STATUS: CYNDEE SILVERIORadha #: [id number] AMPARO: 06/12/23 07:[address]: Pat Mccartney DEPT: SURGICAL PATHOLOGY RECD BY: Annette Burch ENTERED: 06/12/23 11:40 SP TYPE: SUAD ADRIAN DR: Dr. Deb Marroquin MD Tissues: Gallbladder, NOS Procedures: Surgery Specimen Level III HEADER OPERATION: Laparoscopic cholecystectomy with IOC PRE-OP DIAGNOSIS: Biliary dyskinesia TISSUE SUBMITTED: Gallbladder MICROSCOPIC DIAGNOSIS Gallbladder, cholecystectomy: Chronic cholecystitis and cholelithiasis. See comment. SJ:connor 06/13/2023 COMMENT No stones are identified in the container or in the gallbladder. MICROSCOPIC DESCRIPTION Slides are reviewed. GROSS DESCRIPTION Received is one container labeled with the patient's name and designated gallbladder. The specimen consists of a gallbladder measuring 7.0 cm in length and up to 3.5 cm in diameter. The external surface is pink-aranda, smooth and glistening for the most part. Focally it is granular, hemorrhagic and contains cautery artifact. The gallbladder contains green-yellow mucoid bile. No stones are identified in the container or in the gallbladder. A few minute yellowish polyps are noted in the gallbladder mucosa, possible cholesterolosis. The gallbladder wall measures up to 0.2 cm in thickness. Chemistry Quality Control Technician sections from the gallbladder and the cystic duct are submitted in one cassette. / SJ:connor 06/12/2023 TC:3 CPT: 73215
--- NOTE | 2023-06-12 08:15 | PCM.OPRPT ---
Report of Operation Date of Procedure: 06/12/23 Pre-Operative Diagnosis: Biliary dyskinesia Post-Operative Diagnosis: Same Surgery/Procedure Performed:: Laparoscopic cholecystectomy with cholangiograms Surgeon: Pat Mccartney salesperson yard goods: Marilin Vieyra Type of Anesthesia: General/Supplemental Anesthesiologist: Sage Nolan Special Medications: Ancef 2 g IV x 1 Specimen's removed: Gallbladder Estimated Blood Loss (mL): 10 cc Description of Procedure: Indications: this is a 58 year-old male who developed abdominal pain/nausea/vomiting and on workup was found to have biliary dyskinesia with ejection fraction of less than 5% on HIDA, with a normal common bile duct. Laparoscopic cholecystectomy was elected. Description procedure: The patient was placed on operating table in supine position. A timeout was completed verifying correct patient, procedure, site, position and special equipment prior to beginning procedure. General Anesthesia was induced. The abdomen was prepped and draped in usual sterile fashion. An incision was made in the natural skin line above the umbilicus. The fascia was elevated and incised. The peritoneum was elevated and incised. Entry into the peritoneum was confirmed visually and no bowel was noted in the vicinity of the incision. Espinoza trocar was placed. The abdomen was insufflated with carbon dioxide to a pressure of 12-15 mmHg. Patient tolerated insufflation well. The laparoscope was then inserted and abdomen inspected. No injuries from initial trocar placement were noted. Additional trochars were then inserted in the following locations 5 mm trocar in the epigastrium and 2 more 5 mm trochars along the right costal margin. The abdomen was inspected no abnormalities were found. The table is placed in reverse Trendelenburg position with the right side up. The dome of the gallbladder was grasped with atraumatic grasper passed through the lateral port and retracted over the dome of the liver. Infundibulum was then grasped with atraumatic grasper through the midclavicular port and retracted to the right lower quadrant. This maneuver exposed Calot's triangle. The peritoneum overlying the gallbladder infundibulum was then incised and cystic duct and artery identified and circumferentially dissected. Kaufman catheter was used for cholangiograms. The cholangiogram showed good filling of the common bile duct into the duodenum with no filling defects, good filling of the right and left bile ducts as well. The cystic duct and artery were then doubly clipped and divided close to the gallbladder. The gallbladder then dissected from its peritoneal attachments by electrocautery. Hemostasis was checked and the gallbladder and contained stones were removed using the endoscopic retrieval bag through the umbilical port. The gallbladder is passed off table as specimen. The gallbladder fossa was irrigated with saline and hemostasis obtained. There is no evidence of bleeding from the gallbladder fossa or cystic artery leakage of bile from the cystic duct stump. Secondary trochars removed under direct vision. No bleeding was noted the trocar sites. The laparoscope was withdrawn and umbilical trocar removed. The abdomen was allowed to collapse. The fascia of the 12 mm trocar was closed with a [id number] 0 Vicryl suture. The skin was closed with sutures of 4-0 Monocryl and Steri-Strips. The patient was extubated. The patient tolerated procedure well and was taken to the postanesthesia care unit in stable condition. Complications none
[2023-06-12] MEDS: Bupivacaine Mpf 0.5% 30 ML VIAL (08:16)
--- NOTE | 2023-06-12 08:17 | DCINST_ITS ---
Discharge Instructions Diet Discharge Diet: Light diet - advance as tolerated Activity Discharge Activity: May Not Drive (while taking narcotic pain medications.) May shower in (days): 1 Lifting Restrictions: no lifting >20 lbs x 2 wks, no strenuous exercise for 4 wks Dressing / Incision Call your doctor if your incision/area has: Continuous Slow Oozing, Sudden Increased Bleeding, Increased Pain/ Swelling, Increased Redness, Foul Smelling Discharge and Swelling at the incision site Call your doctor if you observe: Fever of 101 or Higher Remove Dressing in: 2 days Cleanse incision/area with: Soap & Water Additional Dressing/Incision Instructions:: Steri-Strips will fall off in 7 to 10 days, if they do not fall off okay to remove after 10 days. Follow Up Care Please Follow Up With: Pat Mccartney MD When: Call the office for a follow-up appointment 2 weeks; after 5 PM and on the weekends call [phone] with any concerns. Test Results: Test results from this visit will be discussed in further detail at your follow- up appointment, if applicable. Discharge Plan Admission Attending Provider: Pat Mccartney Primary Care Provider: Deb Marroquin Discharge Orders/Prescriptions Prescriptions: New oxycodone-acetaminophen 5-325 mg tablet 1 - 2 tab PO Q6H PRN (Reason: pain) 3 Days Qty: 14 0RF Continued fluticasone propion-salmeterol 250-50 mcg/dose blister with device 1 inh INHALATION Q12H albuterol sulfate 90 mcg/actuation HFA aerosol inhaler 2 puff inhalation Q6H PRN (Reason: ASTHMA) Referrals / Follow Up: Deb Marroquin MD [Primary Care Provider] - Disposition Disposition (needs filled in before D/C Order can be placed): Home, Self Care
[2023-06-12] MEDS: Tamsulosin HCl 0.4 MG Capsule 0.400000000000000022 MG PO (15:03)
== END 2023-06-12 15:26 | disposition home or self-care (01) ==
LOC: SDC 06:03 → AC 06:06
PROVIDERS: PCP Family Medicine; Referring Provider Surgery; Visit Provider Surgery
PROC: (CPT 47610; principal; 2023-06-12 07:10)
DX: K80.10 Calculus of gallbladder with chronic cholecystitis without obstruction (principal); K82.8 Other specified diseases of gallbladder; J45.909 Unspecified asthma, uncomplicated
CPT/HCPCS: 47563; 00790; 74300; 76000; 88304; 93005; J7120; J2405

== ENCOUNTER → 2024-03-25 | Outpatient (CLI) | payer OTHER, SELFPAY ==
[2024-03-25 18:05] LABS: PSA,Total - Annual Screen 1.03 ng/mL (0.00-4.00)
== END | disposition home or self-care (01) ==
LOC: MFPLAB 16:20
PROVIDERS: PCP Family Medicine; Visit Provider Family Medicine
DX: Z12.5 Encounter for screening for malignant neoplasm of prostate (principal)
CPT/HCPCS: 36415; 84153; G0103

== ENCOUNTER → 2025-04-23 | Outpatient (CLI) | payer OTHER, SELFPAY ==
[2025-04-23 12:20] LABS: Hematocrit 43.3 % (40-54); Hemoglobin 14.9 g/dL (13.0-16.5); Immature Granulocytes Count 0.030 X10^3/uL (0.0-0.0); Mean Corp Hgb Conc 34.4 g/dL (32-36); Mean Corpuscular Volume 88.2 fL (80-94); Mean Platelet Vol. 10.7 fl (6.2-12.0); NRBC Flagged by Analyzer 0 % (0-5); Platelet Count 258 K/mm3 (150-450); RBC Distribution Width CV 12.1 % (11.6-14.6); RBC Distribution Width SD 38.9 fl (35.1-43.9); Red Blood Count 4.91 M/mm3 (4.6-6.2); White Blood Count 6.8 K/mm3 (4.4-11.0)
[2025-04-23 13:03] LABS: AST(SGOT) 18 U/L (<=37); Alanine Aminotransfer ALT/SGPT 13 U/L (<=46); Albumin, Serum 4.3 g/dL (3.5-5.0); Alkaline Phosphatase 81 U/L (40-129); Anion Gap 7 (5-15); BUN 19 mg/dL (4-19); BUN/Creat Ratio 17.1 RATIO (10-20); Calcium,Total 9.5 mg/dL (7.6-11.0); Carbon Dioxide 28.7 mmol/L (21.0-32.0); Chloride 103 mmol/L (98-108); Globulin 3.1 g/dL (2.2-4.2); Glucose 98 mg/dL (70-99); PSA,Total - Annual Screen 1.25 ng/mL (0.02-4.00); Potassium 4.6 mmol/L (3.3-5.1)
[2025-04-23 13:20] LABS: Cholesterol 205 mg/dL (<=200); Low Density Lipoprotein Calc. 143 mg/dL; Triglycerides 123 mg/dL; Very Low Density Lipoprotein 25 mg/dL (5-40); cholesterol:hdl ratio screen 5.20
[2025-04-25 07:08] LABS: Thyroid Stim Immunoglob <0.10 IU/L (0.00-0.55)
== END | disposition home or self-care (01) ==
LOC: MFPLAB 09:41
PROVIDERS: PCP Family Medicine; Visit Provider Family Medicine
DX: Z12.5 Encounter for screening for malignant neoplasm of prostate (principal); Z00.00 Encounter for general adult medical examination without abnormal findings; E01.0 Iodine-deficiency related diffuse (endemic) goiter
CPT/HCPCS: 80053; 80061; 84153; 84439; 84443; 84445; 85025; 86376; 86800; G0103

== ENCOUNTER → 2025-05-28 | Outpatient (CLI) | payer OTHER, SELFPAY ==
[2025-05-28 18:20] LABS: PSA,Total- Diagnostic 1.37 ng/mL (0.00-4.00)
== END | disposition home or self-care (01) ==
LOC: LAB 15:23
PROVIDERS: PCP Family Medicine; Referring Provider Urology; Visit Provider Urology
DX: Z12.5 Encounter for screening for malignant neoplasm of prostate (principal)
CPT/HCPCS: 36415; 84153

== ENCOUNTER → 2025-06-03 | Outpatient (CLI) | payer OTHER, SELFPAY ==
--- NOTE | 2025-06-03 11:43 | US_ITS ---
PROCEDURE: THYROID 06/03/2025 REASON FOR EXAM: THYROMEGALY TECHNIQUE: Procedure Code: USTHY Modality: US Procedure: THYROID COMPARISON: None FINDINGS: Right thyroid lobe size: 5.7 x 2.2 x 2.1 cm Left thyroid lobe size: 5.1 x 1.9 x 2.2 cm Isthmus: 0.2 cm Background parenchymal echotexture is heterogenous. Nodules: 1. Lobe: Right, Location: Upper, Size: 0.6 x 0.5 x 0.5 cm, Stability: N/A Composition: Solid or almost completely solid (+2) Echogenicity: Hypoechoic (+2) Margin: Smooth (+0) Shape: Wider than tall (+0) Echogenic Foci: None (+0) TI-RADS: 4 2. Lobe: Right, Location: Lower, Size: 1.0 x 0.9 x 0.6 cm, Stability: N/A Composition: Solid or almost completely solid (+2) Echogenicity: Hyper to Isoechoic (+1) Margin: Smooth (+0) Shape: Wider than tall (+0) Echogenic Foci: None (+0) TI-RADS: 3 3. Lobe: Right, Location: Lower, Size: 1.3 x 0.7 x 0.7 cm, Stability: N/A Composition: Solid or almost completely solid (+2) Echogenicity: Very hypoechoic (+3) Margin: Smooth (+0) Shape: Wider than tall (+0) Echogenic Foci: None (+0) TI-RADS: 4 4. Lobe: Left, Location: Mid, Size: 0.7 x 0.7 x 0.7 cm, Stability: N/A Composition: Solid or almost completely solid (+2) Echogenicity: Hypoechoic (+2) Margin: Smooth (+0) Shape: Wider than tall (+0) Echogenic Foci: None (+0) TI-RADS: 4 US/Thyroid IMPRESSION: Heterogenous thyroid lobes, recommend correlation for thyroiditis with thyroid function test. TR 5 right thyroid lobe lower pole nodule measuring up to 1.3 cm meets criteria for continued sonographic follow-up at year 1, 2, 3 and 5. RECOMMENDATION: Based on most suspicious nodule. Nodule size = largest diameter Only evaluate nodule if =>5 mm. Growth > 20% in 2 dimensions = worsening. Follow up to 4 nodules. Recommend biopsy for no more than 2 nodules. Reading Location: [facility]
--- OUTSIDE RECORDS SUMMARY | 2025-06-03 11:46 | XMS RPT_ITS | CCD ---
Author Organization [facility] Care Team Providers Care Sausage Cooker Name Role Phone Carmelita LYLE/Will GENAO Unavailable Deb Marroquin MD Primary Care Provider [phone] Esteban Laws MD Unavailable ESTEBAN LAWS Attending Unavailable JOLLIFF, DEB S Referring Unavailable JOLLIFF, DEB S Primary Care Unavailable Free, Text Entry Unavailable Unavailable Julia Khan Unavailable Unavailable Bill, Ms. Dumont Attending Unavail able Pending, Provider Primary Care Unavailable Dr. Deb Marroquin Primary Care Provider Dr. Deb Marroquin Referring Provider [phone] Dr. Pat Mccartney Attending Provider Dr. Pat Mccartney Referring Provider Dr. Pat Mccartney Other Provider Jolliff, Deb S Primary Care Unavailable Jolliff, Deb S Attending Unavailable Jolliff, Deb S Referring Unavailable Jolliff, Deb S Primary Care Unavailable Jolliff, Deb S Attending Unavailable Jolliff, Deb S Referring Unavailable Jolliff, Deb S Primary Care Unavailable Robotham, Pat Attending Unavailable Jolliff, Deb S Primary Care Unavailable Robotham, Pat Referring Unavailable Bennie, Anshul Attending Unavailable Robotham, Pat Attending Unavailable Jolliff, Deb S Primary Care Unavailable Robotham, Pat Referring Unavailable Robotham, Pat Consulting Unavailable Robotham, Pat Attending Unavailable Jolliff, Deb S Primary Care Unavailable Jolliff, Deb S Referring Unavailable Robotham, Pat Attending Unavailable Jolliff, Deb S Primary Care Unavailable Robotham, Pat Referring Unavailable Jolliff, Deb S Attending Unavailable Jolliff, Deb S Primary Care Unavailable Kenia Sy MD Primary Care Provider [phone] GUS SURESH Attending Unavailable KENIA SY Primary Care Unavailable JOSEPH ESPINO Attending Unavailable KENIA SY Primary Care Unavailable JOSEPH ESPINO Attending Unavailable KENIA SY Primary Care Unavailable Medications Current Medications Medication Drug Class(es) Dates Sig (Normalized) Sig (Original) [id number] 200 actuat albuterol 0.09 mg/actuat metered dose inhaler (13 sources) beta2-Adrenergic Agonist Start: 06-07-2023 take 1 puff(s) by inhalation every six hours Albuterol Sulfate Active 2 PUFF INHALATION EVERY 6 HOURS June 07, 2023 12:00am Start: 09-06-2016 End: 09-30-2020 take 1 spray(s) by inhalation twice daily Proair Hfa Discontinued 1 SPRAY INHALATION TWICE A DAY September 06, 2016 12:13pm September 30, 2020 9:10am Start: 09-06-2016 End: 09-30-2020 take 1 spray(s) by inhalation twice daily Proair Hfa Discontinued 1 SPRAY INHALATION TWICE A DAY September 06, 2016 12:00am September 30, 2020 9:10am Start: 09-06-2016 End: 09-30-2020 take 1 spray(s) by inhalation twice daily Proair Hfa Discontinued 1 SPRAY INHALATION TWICE A DAY September 05, 2016 11:00pm September 30, 2020 8:10am take 2 puff(s) by in halation every six hours as needed for wheezing albuterol (ProAir HFA) 90 mcg/actuation inhaler Inhale 2 puffs every 6 hours if needed for wheezing or shortness of breath (PRN). Active take 2 puff(s) by in halation every six hours as needed ProAir HFA 90 mcg/inh inhalation aerosol ; 2 puff(s) inhaled every 6 hours, As Needed Quantity: 0 Refills: 0 Ordered: 09-Feb-2022 Naz Carrero Generic Substitution Allowed take 1 puff(s) by in halation every six hours as needed for wheezing albuterol 108 (90 Base) MCG/ACT Aero Soln take 1 puff by inhalation every 6 hours as needed for Wheezing.. 0 Active Antiarthritic Combination No .2 (Glucosamine-Chondroitin) 900 mg tablet (7 sources) Start: 09-30-2020 Antiarthritic Combination No.2 (Glucosamine-Chondroitin) 900 mg tablet Active MG PO September 30, 2020 9:16am Start: 09-30-2020 End: 06-07-2023 Antiarthritic Combination No .2 (Glucosamine-Chondroitin) 900 mg tablet Discontinued MG PO September 29, 2020 11:00pm June 07, 2023 2:01pm Start: 09-30-2020 Antiarthritic Combination No.2 (Glucosamine-Chondroitin) 900 mg tablet Active MG PO September 30, 2020 12:00am Start: 09-30-2020 Antiarthritic Combination No.2 (Glucosamine-Chondroitin) 900 mg tablet Active MG PO September 29, 2020 11:00pm Fluticasone Propion-Salmeterol (8 sources) Corticosteroid, beta2-Adrenergic Agonist Start: 09-30-2020 Fluticasone Propion-Salmeterol Active INHALATION September 30, 2020 9:10am Start: 09-30-2020 Fluticasone Pr opion-Salmeterol Active 1 INH INHALATION Q12H September 29, 2020 11:00pm Start: 09-30-2020 Fluticasone Pr opion-Salmeterol Active INHALATION September 30, 2020 12:00am Start: 09-30-2020 Fluticasone Pr opion-Salmeterol Active INHALATION September 29, 2020 11:00pm Fluticasone-Salm eterol (ADVAIR HFA IN) Inhale as needed. 0 Active ondansetron 4 mg disintegrating oral tablet (1 source) Serotonin-3 Receptor Antagonist Start: 02-09-2022 End: 02-11-2022 take 1 tablet by mouth three times daily ondansetron 4 mg oral tablet, disintegrating ; 1 tab(s) orally 3 times a day Quantity: 9 Refills: 0 Ordered: 09-Feb-2022 Julia Khan Start: 09-Feb-2022 End: 11-Feb-2022 Generic Substitution Allowed tadalafil 5 mg oral tablet (3 sources) Phosphodiesterase 5 Inhibitor Start: 10-25-2024 take 1 tablet by mouth in the morning tadalafil (Cialis) 5 mg tablet Take 1 tablet (5 mg) by mouth early in the morning.. 10/25/2024 Active tamsulosin hydrochloride 0.4 mg oral capsule (1 source) alpha-Adrenergic Chito Start: 06-12-2023 take 1 capsule by mouth once daily Tamsulosin (Flomax) 0.4 mg capsule Active 0.4 MG PO DAILY June 12, 2023 12:00am Completed/Discontinued Medications Medication Drug Class(es) Dates Sig (Normalized) Sig (Original) acetaminophen 325 mg / oxyCODONE hydrochloride 5 mg oral tablet (3 sources) Opioid Agonist Start: 01-11-2025 End: 01-16-2025 take 1 tablet by mouth every six hours for pain oxyCODONE-acetami nophen (Percocet) 5-325 mg tablet Indications: Open displaced fracture of middle phalanx of left index finger, initial encounter Take 1 tablet by mouth every 6 hours if needed for severe pain (7 - 10) for up to 5 days. 20 tablet 01/11/2025 01/16/2025 Start: 06-12-2023 take 1 tablet by caitlyn every six hours Oxycodone-Acetaminophen Active 1 - 2 TABLET PO EVERY 6 HOURS 14 June 12, 2023 ascorbic acid 500 mg oral capsule (7 sources) Vitamin C Start: 09-30-2020 End: 06-07-2023 Ascorbic Acid (Vitamin C) Discontinued MG PO September 29, 2020 11:00pm June 07, 2023 2:01pm 30 ml bupivacaine hydrochloride 5 mg/ml injection (2 sources) Amide Local Anesthetic Start: 01-11-2025 End: 01-11-2025 Starting on 01/11/25 at 1109, For 1 dose, Created by cabinet override Start: 01-11-2025 End: 01-11-2025 100 mg (20 mL), injection, O nce, On 01/11/25 at 1100, For 1 dose ceFAZolin 1000 mg injection (1 source) Cephalosporin Antibacterial Start: 01-11-2025 End: 01-11-2025 1 g, intravenous, at 100 mL/hr, Administer over 30 Minutes, Once, On 01/11/25 at 1015, For 1 dose, premix bag, Dosing of this medication varies based on severity of illness. Does this patient have sepsis or concern for sepsis (probable or documented infection plus systemic manifestations of infection)? No, Suspected Indication (Select all that apply): Other, Specify: OPEN FRACTURE, Type of Therapy: Definitive, No Cultures, Indications: Other cephalexin 500 mg oral capsule (2 sources) Cephalosporin Antibacterial Start: 01-11-2025 End: 01-21-2025 take 1 capsule by mouth four times daily cephalexin (Keflex) 500 mg capsule Indications: Open displaced fracture of middle phalanx of left index finger, initial encounter Take 1 capsule (500 mg) by mouth 4 times a day for 10 days. 40 capsule 01/11/2025 01/21/2025 etodolac 400 mg oral tablet (2 sources) Nonsteroidal Anti-inflammatory Drug Start: 01-11-2025 End: 01-18-2025 take 1 tablet by mouth twice daily etodolac (Lodine) 400 mg tablet Indications: Open displaced fracture of middle phalanx of left index finger, initial encounter Take 1 tablet (400 mg) by mouth 2 times a day for 7 days. 14 tablet 01/11/2025 01/18/2025 Lidocaine (1 source) Antiarrhythmic, Amide Local Anesthetic Start: 01-11-2025 End: 01-11-2025 20 mL, intravenous, Once, On 01/11/25 at 1100, For 1 dose triamcinolone acetonide 40 mg/ml injectable suspension (8 sources) Corticosteroid Start: 09-30-2020 End: 09-30-2020 Kenalog (triamcinolone acetonide) 40 mg/mL suspension for injection Discontinued 160 MG intrasynovial ONCE 4 September 30, 2020 9:01am September 30, 2020 9:59am Start: 09-06-2016 End: 09-19-2016 Triamcinolone Acetonide (Boogie acort Aq Nasal [place]) 1 SPRAY Nasal.Sry Discontinued 2 SPRAYS NARES DIRECTED September 05, 2016 11:00pm September 19, 2016 10:47am vitamin e 90 mg oral capsule (7 sources) Start: 09-30-2020 End: 06-07-2023 take 200 [IU] by mouth once daily Vitamin E Discontinued 200 UNIT PO DAILY September 29, 2020 11:00pm June 07, 2023 2:02pm Problems Active Problems Problem Classification Problem Date Documented Da te Episodic/Chronic Asthma (1 source) Unspecified asthma, uncomplicated; Translations: [Unspecified asthma, uncomplicated] Onset: 02-09-2022 Chronic Fracture of upper limb (7 sources) Open fracture of middle phalanx of index finger of left hand; Translations: [Displaced fracture of middle phalanx of left index finger, initial encounter for open fracture] Onset: 01-11-2025 01-11-2025 Episodic Non-Hodgkin`s lymphoma (2 sources) Mucosa-associated lymphoma; 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]] Onset: 10-19-2016 Chronic Open wounds of extremities (4 sources) Laceration of left index finger; Translations: [Laceration without foreign body of left index finger without damage to nail, initial encounter] Onset: 01-31-2025 01-31-2025 Episodic Other gastrointestinal disorders (2 sources) Diarrhea and vomiting; Translations: [Vomiting alone] 02-09-2022 Episodic Other injuries and conditions due to external causes (2 sources) Laceration - injury; Translations: [Laceration] Onset: 01-14-2025 Episodic Other nutritional; endocrine; and metabolic disorders (1 source) Obese class I; Translations: [Obesity, unspecified] Onset: 12-01-2021 12-01-2021 Chronic Other screening for suspected conditions (not mental disorders or infectious disease) (1 source) Encounter for screening for malignant neoplasm of prostate; Translations: [Encounter for screening for malignant neoplasm of prostate] Onset: 04-16-2024 Episodic Unclassified (2 sources) FLU-LIKE SYM 02-09-2022 Comment on above: FLU-LIKE SYM Unclassified (1 source) Gastroenteritis, acute 02-09-2022 Unclassified (1 source) Contact with and (suspected) exposure to COVID-19; Translations: [Contact with and (suspected) exposure to COVID-19] Onset: 02-09-2022 Past or Other Problems Problem Classification Problem Date Documented Da te Episodic/Chronic Abdominal pain (4 sources) Abdominal pain; Translations: [Abdominal pain, unspecified site] Onset: 02-09-2022 02-09-2022 Episodic Biliary tract disease (3 sources) Biliary dyskinesia; Translations: [Other specified diseases of gallbladder] Onset: 06-21-2023 06-07-2023 Episodic Calculus of urinary tract (1 source) [...] Results Test Name Value Interpretation Reference Range Facility Basic metabolic 2000 panelon 01-11-2025 Anion gap [Moles/Vol] 11 mmol/L 10 - 2 0 mmol/L [facility] Calcium [Mass/Vol] 9.2 mg/dL 8.6 - 10. 3 mg/dL [facility] Chloride [Moles/Vol] 105 mmol/L 98 - 10 7 mmol/L [facility] CO2 [Moles/Vol] 27 mmol/L 21 - 32 mmol/L [facility] Creatinine [Mass/Vol] 1.11 mg/dL 0.50 - 1.30 mg/dL [facility] GFR/1.73 sq M.predicted among non-blacks MDRD (S/P/Bld) [Vol rate/Area] 77 mL/min/{1.73_m2} - PINF [facility] Comment on above: Calculations of verona mated GFR are performed using the 2020 CKD-EPI Study Refit equation without the race variable for the IDMS-Traceable creatinine methods. https://jasn.asnjournals.org/content//ASN.824572 0961 Glucose [Mass/Vol] 124 mg/dL High 74 - 99 mg/dL [facility] Interpretation and review of laboratory results Abnormal [facility] Potassium [Moles/Vol] 3.7 mmol/L 3.5 - 5.3 mmol/L [facility] Sodium [Moles/Vol] 139 mmol/L 136 - 145 mmol/L [facility] Urea nitrogen [Mass/Vol] 18 mg/dL 6 - 23 mg/dL [facility] Anion gap [Moles/Vol] 11 mmol/L Normal 10-20 [facility] Comment on above: Performed By: #### 2 4321-2 #### BLAS ERAZO ([id number]) [facility] ([facility]) [address] [place] [address] Calcium [Mass/Vol] 9.2 mg/dL Normal 8.6-10.3 [facility] Comment on above: Performed By: #### 2 4321-2 #### BLAS ERAZO ([id number]) [facility] ([facility]) [address] [place] [address] Chloride [Moles/Vol] 105 mmol/L Normal 98-107 [facility] Comment on above: Performed By: #### 2 4321-2 #### BLAS ERAZO ([id number]) [facility] ([facility]) [address] [place] [address]303 CO2 [Moles/Vol] 27 mmol/L Normal 21-32 [facility] Comment on above: Performed By: #### 2 4321-2 #### BLAS ERAZO ([id number]) [facility] ([facility]) [address] [place] [address] 28277 Creatinine [Mass/Vol] 1.11 mg/dL Normal 0.50-1.30 [facility] Comment on above: Performed By: #### 2 4321-2 #### BLAS ERAZO ([id number]) [facility] ([facility]) [address] [place] [address] 76328 Glomerular filtration rate 77 mL/min/1.73m*2 Normal >60 [facility] Comment on above: Result Comment: Calc ulations of estimated GFR are performed using the 2020 CKD-EPI Study Refit equation without the race variable for the IDMS-Traceable creatinine methods. https://jasn.asnjournals.org/content//ASN.425131 0683 Performed By: #### 2 4321-2 #### BLAS ERAZO ([id number]) [facility] ([facility]) [address] [place] [address] 97065 Glucose [Mass/Vol] 124 mg/dL High 74-99 [facility] Comment on above: Performed By: #### 2 4321-2 #### BLAS ERAZO ([id number]) [facility] ([facility]) [address] [place] [address] 94168 Potassium [Moles/Vol] 3.7 mmol/L Normal 3.5-5.3 [facility] Comment on above: Performed By: #### 2 4321-2 #### BLAS ERAZO ([id number]) [facility] ([facility]) [address] [place] [address] 51217 Sodium [Moles/Vol] 139 mmol/L Normal 136-145 [facility] Comment on above: Performed By: #### 2 4321-2 #### BLAS ERAZO ([id number]) [facility] ([facility]) [address] [place] [address] 57946 Urea nitrogen [Mass/Vol] 18 mg/dL Normal 6-23 [facility] Comment on above: Performed By: #### 2 4321-2 #### BLAS ERAZO ([id number]) [facility] ([facility]) [address] [place] [address] 21001 CBC W Auto Differential pane l (Bld)on 01-11-2025 Erythrocyte distribution width (RBC) [Ratio] 12.0 % 11.5 - 14.5 % [facility] Hematocrit (Bld) [Volume fraction] 41.1 % 41.0 - 52.0 % [facility] Hemoglobin (Bld) [Mass/Vol] 13.9 g/dL 13.5 - 17.5 g/dL [facility] Immature granulocytes (Bld) [#/Vol] 0.02 10*3/uL [facility] Immature granulocytes/100 WBC (Bld) 0.2 % 0.0 - 0.9 % [facility] Comment on above: Immature Granulocyte Count (IG) includes promyelocytes, myelocytes and metamyelocytes but does not include bands. Percent differential counts (%) should be interpreted in the context of the absolute cell counts (cells/UL). MCH (RBC) [Entitic mass] 29.8 pg 26.0 - 34.0 pg [facility] MCHC (RBC) [Mass/Vol] 33.8 g/dL 32.0 - 36.0 g/dL [facility] MCV (RBC) [Entitic vol] 88 fL 80 - 100 fL [facility] Nucleated RBC/100 WBC (Bld) [Ratio] 0.0 % [facility] Platelets (Bld) [#/Vol] 246 10*3/uL [facility] RBC (Bld) [#/Vol] 4.66 10*6/uL [facility] WBC (Bld) [#/Vol] 12.2 10*3/uL High [facility] The previously reported component Neutrophils % is no longer being reported.The previously reported component Lymphocytes % is no longer being reported.The previously reported component Monocytes % is no longer being reported.The previously reported component Eosinophils % is no longer being reported.The previously reported component Basophils % is no longer being reported.The previously reported component Absolute Neutrophils is no longer being reported.The previously reported component Absolute Lymphocytes is no longer being reported.The previously reported component Absolute Monocytes is no longer being reported.The previously reported component Absolute Eosinophils is no longer being reported.The previously reported component Absolute Basophils is no longer being reported. [facility] Erythrocyte distribution width (RBC) [Ratio] 12.0 % Normal 11.5-14.5 [facility] Comment on above: Order Comment: The p reviously reported component Neutrophils % is no longer being reported. The previously reported component Lymphocytes % is no longer being reported. The previously reported component Monocytes % is no longer being reported. The previously reported component Eosinophils % is no longer being reported. The previously reported component Basophils % is no longer being reported. The previously reported component Absolute Neutrophils is no longer being reported. The previously reported component Absolute Lymphocytes is no longer being reported. The previously reported component Absolute Monocytes is no longer being reported. The previously reported component Absolute Eosinophils is no longer being reported. The previously reported component Absolute Basophils is no longer being reported. Performed By: #### 5 7021-8 #### BLAS ERAZO ([id number]) [facility] ([facility]) [address] [place] [address] Hematocrit (Bld) [Volume fraction] 41.1 % Normal 41.0-52.0 [facility] Comment on above: Order Comment: The p reviously reported component Neutrophils % is no longer being reported. The previously reported component Lymphocytes % is no longer being reported. The previously reported component Monocytes % is no longer being reported. The previously reported component Eosinophils % is no longer being reported. The previously reported component Basophils % is no longer being reported. The previously reported component Absolute Neutrophils is no longer being reported. The previously reported component Absolute Lymphocytes is no longer being reported. The previously reported component Absolute Monocytes is no longer being reported. The previously reported component Absolute Eosinophils is no longer being reported. The previously reported component Absolute Basophils is no longer being reported. Performed By: #### 5 7021-8 #### BLAS ERAZO ([id number]) [facility] ([facility]) [address] [place] [address] Hemoglobin (Bld) [Mass/Vol] 13.9 g/dL Normal 13.5-17.5 [facility] Comment on above: Order Comment: The p reviously reported component Neutrophils % is no longer being reported. The previously reported component Lymphocytes % is no longer being reported. The previously reported component Monocytes % is no longer being reported. The previously reported component Eosinophils % is no longer being reported. The previously reported component Basophils % is no longer being reported. The previously reported component Absolute Neutrophils is no longer being reported. The previously reported component Absolute Lymphocytes is no longer being reported. The previously reported component Absolute Monocytes is no longer being reported. The previously reported component Absolute Eosinophils is no longer being reported. The previously reported component Absolute Basophils is no longer being reported. Performed By: #### 5 7021-8 #### BLAS ERAZO ([id number]) [facility] ([facility]) [address] [place] [address] Immature granulocytes (Bld) [#/Vol] 0.02 x10*3/uL Normal 0.00-0.70 [facility] Comment on above: Order Comment: The p reviously reported component Neutrophils % is no longer being reported. The previously reported component Lymphocytes % is no longer being reported. The previously reported component Monocytes % is no longer being reported. The previously reported component Eosinophils % is no longer being reported. The previously reported component Basophils % is no longer being reported. The previously reported component Absolute Neutrophils is no longer being reported. The previously reported component Absolute Lymphocytes is no longer being reported. The previously reported component Absolute Monocytes is no longer being reported. The previously reported component Absolute Eosinophils is no longer being reported. The previously reported component Absolute Basophils is no longer being reported. Performed By: #### 5 7021-8 #### BLAS ERAZO ([id number]) [facility] ([facility]) [address] [place] [address] Immature granulocytes/100 WBC (Bld) 0.2 % Normal 0.0-0.9 [facility] Comment on above: Order Comment: The p reviously reported component Neutrophils % is no longer being reported. The previously reported component Lymphocytes % is no longer being reported. The previously reported component Monocytes % is no longer being reported. The previously reported component Eosinophils % is no longer being reported. The previously reported component Basophils % is no longer being reported. The previously reported component Absolute Neutrophils is no longer being reported. The previously reported component Absolute Lymphocytes is no longer being reported. The previously reported component Absolute Monocytes is no longer being reported. The previously reported component Absolute Eosinophils is no longer being reported. The previously reported component Absolute Basophils is no longer being reported. Result Comment: Raquel ture Granulocyte Count (IG) includes promyelocytes, myelocytes and metamyelocytes but does not include bands. Percent differential counts (%) should be interpreted in the context of the absolute cell counts (cells/UL). Performed By: #### 5 7021-8 #### BLAS ERAZO ([id number]) [facility] ([facility]) [address] [place] [address] 63276 MCH (RBC) [Entitic mass] 29.8 pg Normal 26.0-34.0 [facility] Comment on above: Order Comment: The p reviously reported component Neutrophils % is no longer being reported. The previously reported component Lymphocytes % is no longer being reported. The previously reported component Monocytes % is no longer being reported. The previously reported component Eosinophils % is no longer being reported. The previously reported component Basophils % is no longer being reported. The previously reported component Absolute Neutrophils is no longer being reported. The previously reported component Absolute Lymphocytes is no longer being reported. The previously reported component Absolute Monocytes is no longer being reported. The previously reported component Absolute Eosinophils is no longer being reported. The previously reported component Absolute Basophils is no longer being reported. Performed By: #### 5 7021-8 #### BLAS LIEBERMANCHAU ([id number]) [facility] ([facility]) [address] [place] [address] MCHC (RBC) [Mass/Vol] 33.8 g/dL Normal 32.0-36.0 [facility] Comment on above: Order Comment: The p reviously reported component Neutrophils % is no longer being reported. The previously reported component Lymphocytes % is no longer being reported. The previously reported component Monocytes % is no longer being reported. The previously reported component Eosinophils % is no longer being reported. The previously reported component Basophils % is no longer being reported. The previously reported component Absolute Neutrophils is no longer being reported. The previously reported component Absolute Lymphocytes is no longer being reported. The previously reported component Absolute Monocytes is no longer being reported. The previously reported component Absolute Eosinophils is no longer being reported. The previously reported component Absolute Basophils is no longer being reported. Performed By: #### 5 7021-8 #### ODONNELL CASTRO ([id number]) [facility] ([facility]) [address] [place] [address] MCV (RBC) [Entitic vol] 88 fL Normal 80-100 [facility] Comment on above: Order Comment: The p reviously reported component Neutrophils % is no longer being reported. The previously reported component Lymphocytes % is no longer being reported. The previously reported component Monocytes % is no longer being reported. The previously reported component Eosinophils % is no longer being reported. The previously reported component Basophils % is no longer being reported. The previously reported component Absolute Neutrophils is no longer being reported. The previously reported component Absolute Lymphocytes is no longer being reported. The previously reported component Absolute Monocytes is no longer being reported. The previously reported component Absolute Eosinophils is no longer being reported. The previously reported component Absolute Basophils is no longer being reported. Performed By: #### 5 7021-8 #### BLAS ERAZO ([id number]) [facility] ([facility]) [address] [place] [address] 995[address] Nucleated RBC/100 WBC (Bld) [Ratio] 0.0 /100 WBCs Normal 0.0-0.0 [facility] Comment on above: Order Comment: The p reviously reported component Neutrophils % is no longer being reported. The previously reported component Lymphocytes % is no longer being reported. The previously reported component Monocytes % is no longer being reported. The previously reported component Eosinophils % is no longer being reported. The previously reported component Basophils % is no longer being reported. The previously reported component Absolute Neutrophils is no longer being reported. The previously reported component Absolute Lymphocytes is no longer being reported. The previously reported component Absolute Monocytes is no longer being reported. The previously reported component Absolute Eosinophils is no longer being reported. The previously reported component Absolute Basophils is no longer being reported. Performed By: #### 5 7021-8 #### BLAS ERAZO ([id number]) [facility] ([facility]) [address] [place] [address] Platelets (Bld) [#/Vol] 246 x10*3/uL Normal 150-450 [facility] Comment on above: Order Comment: The p reviously reported component Neutrophils % is no longer being reported. The previously reported component Lymphocytes % is no longer being reported. The previously reported component Monocytes % is no longer being reported. The previously reported component Eosinophils % is no longer being reported. The previously reported component Basophils % is no longer being reported. The previously reported component Absolute Neutrophils is no longer being reported. The previously reported component Absolute Lymphocytes is no longer being reported. The previously reported component Absolute Monocytes is no longer being reported. The previously reported component Absolute Eosinophils is no longer being reported. The previously reported component Absolute Basophils is no longer being reported. Performed By: #### 5 7021-8 #### BLAS ERAZO ([id number]) [facility] ([facility]) [address] [place] [address] 32529 RBC (Bld) [#/Vol] 4.66 x10*6/uL Normal 4.50-5.90 [facility] Comment on above: Order Comment: The p reviously reported component Neutrophils % is no longer being reported. The previously reported component Lymphocytes % is no longer being reported. The previously reported component Monocytes % is no longer being reported. The previously reported component Eosinophils % is no longer being reported. The previously reported component Basophils % is no longer being reported. The previously reported component Absolute Neutrophils is no longer being reported. The previously reported component Absolute Lymphocytes is no longer being reported. The previously reported component Absolute Monocytes is no longer being reported. The previously reported component Absolute Eosinophils is no longer being reported. The previously reported component Absolute Basophils is no longer being reported. Performed By: #### 5 7021-8 #### BLAS ERAZO ([id number]) [facility] ([facility]) [address] [place] [address] WBC (Bld) [#/Vol] 12.2 x10*3/uL High 4.4-11.3 [facility] Comment on above: Order Comment: The p reviously reported component Neutrophils % is no longer being reported. The previously reported component Lymphocytes % is no longer being reported. The previously reported component Monocytes % is no longer being reported. The previously reported component Eosinophils % is no longer being reported. The previously reported component Basophils % is no longer being reported. The previously reported component Absolute Neutrophils is no longer being reported. The previously reported component Absolute Lymphocytes is no longer being reported. The previously reported component Absolute Monocytes is no longer being reported. The previously reported component Absolute Eosinophils is no longer being reported. The previously reported component Absolute Basophils is no longer being reported. Performed By: #### 5 7021-8 #### BLAS ERAZO ([id number]) [facility] ([facility]) [address] [place] [address] ECG 12-LEADon 01-11-2025 ECG 12-LEAD Ventricular Rate 55 Atrial Rate 55 P-R Interval 182 QRS Duration 80 Q-T Interval 394 QTC Calculation(Bazett) 376 P Indore 50 R Indore 3 T Indore 42 QRS Count 9 Q Onset 221 P Onset 130 P Offset 165 T Offset 418 QTC Fredericia 382 Diagnosis Sinus bradycardia Septal infarct (cited on or before 11-JAN-2025) Abnormal ECG When compared with ECG of 09-FEB-2022 16:33, Previous ECG has undetermined rhythm, needs review See ED provider note for full interpretation and clinical correlation Confirmed by Mickie Lujan ([id number]) on 01/13/2025 2:06:45 AM Normal [facility] Manual differential performe d Ql (Bld)on 01-11-2025 Basophils (Bld) [#/Vol] 0.00 10*3/uL [facility] Basophils/100 WBC (Bld) 0.0 % 0.0 - 2.0 % [facility] Cells Counted Total (Bld) [#] 100 {cells} [facility] Eosinophils (Bld) [#/Vol] 0.61 10*3/uL [facility] Eosinophils/100 WBC (Bld) 5.0 % 0.0 - 6.0 % [facility] Lymphocytes (Bld) [#/Vol] 5.86 10*3/uL High [facility] Lymphocytes/100 WBC (Bld) 48.0 % 13.0 - 44.0 % [facility] Metamyelocytes (Bld) [#/Vol] 0.37 10*3/uL [facility] Metamyelocytes/100 WBC (Bld) 3.0 % 0.0 - 0.0 % [facility] Monocytes (Bld) [#/Vol] 0.73 10*3/uL [facility] Monocytes/100 WBC (Bld) 6.0 % 2.0 - 10.0 % [facility] RBC morphology finding Nom (Bld) No significant RBC morphology present [facility] Segmented neutrophils (Bld) [#/Vol] 4.64 10*3/uL [facility] Segmented neutrophils/100 WBC (Bld) 38.0 % 40.0 - 80.0 % [facility] Comment on above: Percent differential counts (%) should be interpreted in the context of the absolute cell counts (cells/uL). Basophils (Bld) [#/Vol] 0.00 x10*3/uL Normal 0.00-0.10 [facility] Comment on above: Performed By: #### 5 0957-0 #### ODONNELL CASTRO ([id number]) [facility] ([facility]) [address] [place] [address] Basophils/100 WBC (Bld) 0.0 % Normal 0.0-2.0 [facility] Comment on above: Performed By: #### 5 0957-0 #### BLAS ERAZO ([id number]) [facility] ([facility]) [address] [place] [address] 88861 Cells Counted Total (Bld) [#] 100 Normal [facility] Comment on above: Performed By: #### 5 57-0 #### BLAS ERAZO ([id number]) [facility] ([facility]) [address] [place] [address] 65853 Eosinophils (Bld) [#/Vol] 0.61 x10*3/uL Normal 0.00-0.70 [facility] Comment on above: Performed By: #### 5 57-0 #### BLAS ERAZO ([id number]) [facility] ([facility]) [address] [place] [address] 22231 Eosinophils/100 WBC (Bld) 5.0 % Normal 0.0-6.0 [facility] Comment on above: Performed By: #### 5 57-0 #### BLAS ERAZO ([id number]) [facility] ([facility]) [address] [place] [address] 78800 Lymphocytes (Bld) [#/Vol] 5.86 x10*3/uL High 1.20-4.80 [facility] Comment on above: Performed By: #### 5 57-0 #### BLAS ERAZO ([id number]) [facility] ([facility]) [address] [place] [address] 55734 Lymphocytes/100 WBC (Bld) 48.0 % Normal 13.0-44.0 [facility] Comment on above: Performed By: #### 5 57-0 #### BLAS ERAZO ([id number]) [facility] ([facility]) [address] [place] [address] 63117 Metamyelocytes (Bld) [#/Vol] 0.37 x10*3/uL Normal 0.00-0.00 [facility] Comment on above: Performed By: #### 5 57-0 #### BLAS ERAZO ([id number]) [facility] ([facility]) [address] [place] [address] 84525 Metamyelocytes/100 WBC (Bld) 3.0 % Normal 0.0-0.0 [facility] Comment on above: Performed By: #### 5 0957-0 #### BLAS ERAZO ([id number]) [facility] ([facility]) [address] [place] [address] 83388 Monocytes (Bld) [#/Vol] 0.73 x10*3/uL Normal 0.10-1.00 [facility] Comment on above: Performed By: #### 5 57-0 #### BLAS ERAZO ([id number]) [facility] ([facility]) [address] [place] [address] 00428 Monocytes/100 WBC (Bld) 6.0 % Normal 2.0-10.0 [facility] Comment on above: Performed By: #### 5 57-0 #### LBAS ERAZO ([id number]) [facility] ([facility]) [address] [place] [address] 16593 RBC morphology finding Nom (Bld) No significant RBC morphology present Normal [facility] Comment on above: Performed By: #### 5 0957-0 #### BLAS ERAZO ([id number]) [facility] ([facility]) [address] [place] [address] 65891 Segmented neutrophils (Bld) [#/Vol] 4.64 x10*3/uL Normal 1.20-7.00 [facility] Comment on above: Performed By: #### 5 0957-0 #### BLAS ERAZO ([id number]) [facility] ([facility]) [address] [place] [address] 49370 Segmented neutrophils/100 WBC (Bld) 38.0 % Normal 40.0-80.0 [facility] Comment on above: Result Comment: Perc ent differential counts (%) should be interpreted in the context of the absolute cell counts (cells/uL). Performed By: #### 5 0957-0 #### BLAS ERAZO ([id number]) [facility] ([facility]) [address] [place] [address] No Panel Informationon 01-11 Interpretation and review of laboratory results Abnormal [facility] Tropinin I.cardiac panel Hig h sensitivity methodon 01-11-2025 Interpretation and review of laboratory results Normal [facility] Less than 99th percentile of normal range cutoff- Female and children under 18 years old <14 ng/L; Male <21 ng/L: Negative Repeat testing should be performed if clinically indicated. Female and children under 18 years old 14-50 ng/L; Male 21-50 ng/L: Consistent with possible cardiac damage and possible increased clinical risk. Serial measurements may help to assess extent of myocardial damage. >50 ng/L: Consistent with cardiac damage, increased clinical risk and myocardial infarction. Serial measurements may help assess extent of myocardial damage. NOTE: Children less than 1 year old may have higher baseline troponin levels and results should be interpreted in conjunction with the overall clinical context. NOTE: Troponin I testing is performed using a different testing methodology at [facility] than at other [facility]. Direct result comparisons should only be made within the same method. [facility] Interpretation and review of laboratory results Normal [facility] Less than 99th percentile of normal range cutoff- Female and children under 18 years old <14 ng/L; Male <21 ng/L: Negative Repeat testing should be performed if clinically indicated. Female and children under 18 years old 14-50 ng/L; Male 21-50 ng/L: Consistent with possible cardiac damage and possible increased clinical risk. Serial measurements may help to assess extent of myocardial damage. >50 ng/L: Consistent with cardiac damage, increased clinical risk and myocardial infarction. Serial measurements may help assess extent of myocardial damage. NOTE: Children less than 1 year old may have higher baseline troponin levels and results should be interpreted in conjunction with the overall clinical context. NOTE: Troponin I testing is performed using a different testing methodology at [facility] than at other [facility]. Direct result comparisons should only be made within the same method. [facility] Troponin I, High Sensitivity , Initialon 01-11-2025 Tropinin I.cardiac panel High sensitivity method 3 ng/L 0 - 20 ng/L [facility] Troponin I.cardiac panelon 0 01-11-2025 Tropinin I.cardiac panel High sensitivity method 4 ng/L Normal 0-20 [facility] Comment on above: Order Comment: Less than 99th percentile of normal range cutoff- Female and children under 18 years old <14 ng/L; Male <21 ng/L: Negative Repeat testing should be performed if clinically indicated. Female and children under 18 years old 14-50 ng/L; Male 21-50 ng/L: Consistent with possible cardiac damage and possible increased clinical risk. Serial measurements may help to assess extent of myocardial damage. >50 ng/L: Consistent with cardiac damage, increased clinical risk and myocardial infarction. Serial measurements may help assess extent of myocardial damage. NOTE: Children less than 1 year old may have higher baseline troponin levels and results should be interpreted in conjunction with the overall clinical context. NOTE: Troponin I testing is performed using a different testing methodology at [facility] than at [facility]. Direct result comparisons should only be made within the same method. Performed By: #### 8 9577-1 #### BLAS ERAZO ([id number]) [facility] ([facility]) [address] [place] [address] Tropinin I.cardiac panel High sensitivity method 3 ng/L Normal 0-20 [facility] Comment on above: Order Comment: Less than 99th percentile of normal range cutoff- Female and children under 18 years old <14 ng/L; Male <21 ng/L: Negative Repeat testing should be performed if clinically indicated. Female and children under 18 years old 14-50 ng/L; Male 21-50 ng/L: Consistent with possible cardiac damage and possible increased clinical risk. Serial measurements may help to assess extent of myocardial damage. >50 ng/L: Consistent with cardiac damage, increased clinical risk and myocardial infarction. Serial measurements may help assess extent of myocardial damage. NOTE: Children less than 1 year old may have higher baseline troponin levels and results should be interpreted in conjunction with the overall clinical context. NOTE: Troponin I testing is performed using a different testing methodology at [facility] than at other [facility]. Direct result comparisons should only be made within the same method. Performed By: #### 8 9577-1 #### BLAS ERAZO ([id number]) [facility] ([facility]) [address] [place], [place] [id number] Troponin, High Sensitivity, 1 Houron 01-11-2025 Tropinin I.cardiac panel High sensitivity method 4 ng/L 0 - 20 ng/L [facility] XR HAND LEFT 3+ VIEWSon XR HAND LEFT 3+ VIEWS STUDY: Hand Radiographs; 01/11/2025 10:30 AM INDICATION: Left hand pain post injury. COMPARISON: None available. ACCESSION NUMBER(S): [id number] ORDERING CLINICIAN: GUS SURESH TECHNIQUE: Three view(s) of the left hand. FINDINGS: Comminuted fracture through the distal phalanx with multiple bone fragments and extending into the DIP joint. Associated soft tissue injury/laceration. IMPRESSION: Comminuted fracture through the distal phalanx with multiple bone fragments and extending into the DIP joint. Associated soft tissue injury/laceration. Signed by Marquez Lewis MD [facility] XR Hand - left 3 Viewson Comminuted fracture through the distal phalanx with multiple bone fragments and extending into the DIP joint. Associated soft tissue injury/laceration. Signed by Marquez Lewis MD TELERADIOLOGY STUDY: Hand Radiographs; 01/11/2025 10:30 AM INDICATION: Left hand pain post injury. COMPARISON: None available. ACCESSION NUMBER(S): [id number] ORDERING CLINICIAN: GUS SURESH TECHNIQUE: Three view(s) of the left hand. FINDINGS: Comminuted fracture through the distal phalanx with multiple bone fragments and extending into the DIP joint. Associated soft tissue injury/laceration. TELERADIOLOGY Marquez Lewis MD - 01/11/2025 STUDY: Hand Radiographs; 01/11/2025 10:30 AM INDICATION: Left hand pain post injury. COMPARISON: None available. ACCESSION NUMBER(S): [id number] ORDERING CLINICIAN: GUS SURESH TECHNIQUE: Three view(s) of the left hand. FINDINGS: Comminuted fracture through the distal phalanx with multiple bone fragments and extending into the DIP joint. Associated soft tissue injury/laceration. IMPRESSION: Comminuted fracture through the distal phalanx with multiple bone fragments and extending into the DIP joint. Associated soft tissue injury/laceration. Signed by Marquez Lewis MD [facility] Work Phone: Radiology Study observation (narrative) [facility] Work Phone: XR Hand - left 3 ViewsOrdere d By: Marquez Lewis on 01-11-2025 [facility] Work Phone: PSA,Total - Annual Screenon 03-25-2024 PSA,TOT SCREEN 1.03 ng/mL Normal 0.00-4.00 [facility] Comment on above: Result Comment: This test was performed using the TPSA assay method for the [employer] chemistry system. Values obtained with different assay methods cannot be used interchangably. When changing PSA assays in the course of monitoring a patient, additional sequential testing should be carried out to confirm baseline values. Performed By: #### L [id number] #### [facility] [address], [address] Surgery Visit Reporton 06-25 Surgery Visit Report [facility] [address] [place] [address] OFFICE VISIT Date of Service: 06/25/23 MR#: [id number] Acct: [id number] Name: ASHOK NUÑEZ Rep #: [id number] : 1965 Provider: Dr. Pat segal MD Age/Sex: 58/M Location: [facility] Status: Signed Intake Vital Signs 06/12/23 06:52 Height 6 ft 1 in Intake Visit Reasons: GALLBLADDER 06/12/23 Chief Complaint: gallbladder 06/12/23 Is patient in pain?: No Allergies No Known Allergies Allergy (Unverified 06/25/23 14:22) Medications fluticasone 250 mcg-salmeterol 50 mcg/dose blistr powdr for inhalation 1 inh inhalation Q12H 09/30/20 [History Confirmed 06/25/23] albuterol sulfate 90 mcg/actuation aerosol inhaler 2 puff inhalation Q6H PRN ASTHMA 06/07/23 [History Confirmed 06/25/23] tamsulosin 0.4 mg capsule (Flomax) 0.4 mg PO DAILY #5 caps 06/12/23 [Rx Confirmed 06/25/23] Subjective Details: 58-year-old male presents status post laparoscopic cholecystectomy with cholangiograms. Patient is doing well denies any abdominal pain tolerating diet and having bowel function. Patient did require straight cath after surgery but was able to urinate without issues later that night. Objective Details: Abdomen: Soft, nondistended, nontender incisions healing well clean dry and intact no signs of erythema or infection, no peritoneal signs Coding Level of Care Code Global Post Op Diagnoses S/P cholecystectomy Z90.49 [facility] Medical History Asthma Blackout Cancer Fatty liver High cholesterol History of lipoma History of renal disease History of stress test Hx of malignant lymphoma Non-smoker Surgical History (Updated 06/26/23 @ 10:[address] Pat Mccartney MD) History of cardiac catheterization Hx of rhinoplasty S/P cholecystectomy Family History (Updated 06/07/23 @ 13:59 by Erica Matias) Mother Heart disease Hypertension Social History (Updated 06/07/23 @ 14:00 by Erica Matias) Smoking Status: Never smoker alcohol intake: never substance use type: does not use Assessment and Plan (No Qualifiers) Assessment and Plan (1) S/P cholecystectomy: Status: Acute Comment: laparoscopic 06/12/23 Plan Patient is doing well tolerating diet and having bowel function. Incision is healing well. Follow- up as needed. Patient is agreeable with plan. Pat Mccartney M.D. Pager: [phone] [facility] [address] [place] [address] [address] [place] [address] Office: [phone] 06/26/23 105 Date Pat Mccartney MD Cosign Signature: Date (if applicable) CC: Normal [facility] Cholangiogram/ O R,Initialon 06-12-2023 Cholangiogram/ O R,Initial [facility] [address] [place] [address] Cholangiogram/ O R,Initial MR#: [id number] Acct: [id number] Name: ASHOK NUÑEZ Rep #: [id number] : 1965 M 58 From: Horace Juarez PCP: Dr. Deb Marroquin MD Status: [facility] Study: Cholangiogram/ O R,Initial Date of Exam: 06/12 Exam# [id number] Ordering Dr: Pat Mccartney MD [id number] INDICATION: LAP HANANE WITH IOC EXAMINATION/TECHNIQUE : Continuous fluoroscopic images are presented for evaluation. Total Fluoroscopic Time: 4.5 seconds . COMPARISON: Nuclear medicine biliary scan of 05/17/2023 __ FINDINGS: Small mobile filling defect is seen in the common bile duct likely representing air bubble. Difficult to exclude small retained stone. No evidence of obstruction. There is no biliary ductal dilatation. There is free passage into the duodenum. RAD/Cholangiogram/ O R,Initial IMPRESSION: Small mobile filling defect in the common bile duct as described above. Electronically Signed: Horace Acuña MD at 8:20 EST , CC: Dr. Deb Marroquin MD; Dr. Pat Mccartney MD Customer Development Representative: Signed Normal [facility] Discharge Instructionon Discharge Instruction [facility] Medical Records Department [address] [place] [address] Instructions for Home/Discharge Instructions 06/12/23 0817 MR#: [id number] Acct: [id number] Name: MATTHEWDARIELAASHOK Rep #: [id number] : 1965 58 From: Pat Mccartney MD PCP: Dr. Deb Marroquin MD Status:REG [facility] Discharge Instructions Diet Discharge Diet: Light diet - advance as tolerated Activity Discharge Activity: May Not Drive (while taking narcotic pain medications.) May shower in (days): 1 Lifting Restrictions: no lifting >20 lbs x 2 wks, no strenuous exercise for 4 wks Dressing / Incision Call your doctor if your incision/area has: Continuous Slow Oozing, Sudden Increased Bleeding, Increased Pain/ Swelling, Increased Redness, Foul Smelling Discharge and Swelling at the incision site Call your doctor if you observe: Fever of 101 or Higher Remove Dressing in: 2 days Cleanse incision/area with: Soap Water Additional Dressing/Incision Instructions:: Steri-Strips will fall off in 7 to 10 days, if they do not fall off okay to remove after 10 days. Follow Up Care Please Follow Up With: Pat Mccartney MD When: Call the office for a follow-up appointment 2 weeks; after 5 PM and on the weekends call [phone] with any concerns. Test Results: Test results from this visit will be discussed in further detail at your follow-up appointment, if applicable. Discharge Plan Admission Attending Provider: Pat Mccartney Primary Care Provider: Deb Marroquin Discharge Orders/Prescriptions Prescriptions: New oxycodone-acetaminoph en 5-325 mg tablet 1 - 2 tab PO Q6H PRN (Reason: pain) 3 Days Qty: 14 0RF Continued fluticasone propion-salmeterol 250-50 mcg/dose blister with device 1 inh INHALATION Q12H albuterol sulfate 90 mcg/actuation HFA aerosol inhaler 2 puff inhalation Q6H PRN (Reason: ASTHMA) Referrals / Follow Up: Deb Marroquin MD [Primary Care Provider] - Disposition Disposition (needs filled in before D/C Order can be placed): Home, Self Care 06/12/23816 Pat Mccartney MD CC: Dr. Deb Marroquin MD Signed Normal [facility] Operative Reporton 4 Operative Report [facility] Medical Records Department [address] [place] [address] Operative Report 06/12/23 0815 MR#: [id number] Acct: [id number] Name: ASHOK NUÑEZ Rep #: [id number] : 1965 58 From: Pat Mccartney MD PCP: Dr. Deb Marroquin MD Status:REG [facility] Location: [place] [address] Report of Operation Date of Procedure: 06/12/23 Pre-Operative Diagnosis: Biliary dyskinesia Post-Operative Diagnosis: Same Surgery/Procedure Performed:: Laparoscopic cholecystectomy with cholangiograms Surgeon: Pat Mccartney sleeping car conductor: Marilin Vieyra Type of Anesthesia: General/Supplemental Anesthesiologist: Sage Nolan Special Medications: Ancef 2 g IV x 1 Specimen's removed: Gallbladder Estimated Blood Loss (mL): 10 cc Description of Procedure: Indications: this is a 58 year-old male who developed abdominal pain/nausea/vomiting and on workup was found to have biliary dyskinesia with ejection fraction of less than 5% on HIDA, with a normal common bile duct. Laparoscopic cholecystectomy was elected. Description procedure: The patient was placed on operating table in supine position. A timeout was completed verifying correct patient, procedure, site, position and special equipment prior to beginning procedure. General Anesthesia was induced. The abdomen was prepped and draped in usual sterile fashion. An incision was made in the natural skin line above the umbilicus. The fascia was elevated and incised. The peritoneum was elevated and incised. Entry into the peritoneum was confirmed visually and no bowel was noted in the vicinity of the incision. Espinoza trocar was placed. The abdomen was insufflated with carbon dioxide to a pressure of 12-15 mmHg. Patient tolerated insufflation well. The laparoscope was then inserted and abdomen inspected. No injuries from initial trocar placement were noted. Additional trochars were then inserted in the following locations 5 mm trocar in the epigastrium and 2 more 5 mm trochars along the right costal margin. The abdomen was inspected no abnormalities were found. The table is placed in reverse Trendelenburg position with the right side up. The dome of the gallbladder was grasped with atraumatic grasper passed through the lateral port and retracted over the dome of the liver. Infundibulum was then grasped with atraumatic grasper through the midclavicular port and retracted to the right lower quadrant. This maneuver exposed Calot's triangle. The peritoneum overlying the gallbladder infundibulum was then incised and cystic duct and artery identified and circumferentially dissected. Kaufman catheter was used for cholangiograms. The cholangiogram showed good filling of the common bile duct into the duodenum with no filling defects, good filling of the right and left bile ducts as well. The cystic duct and artery were then doubly clipped and divided close to the gallbladder. The gallbladder then dissected from its peritoneal attachments by electrocautery. Hemostasis was checked and the gallbladder and contained stones were removed using the endoscopic retrieval bag through the umbilical port. The gallbladder is passed off table as specimen. The gallbladder fossa was irrigated with saline and hemostasis obtained. There is no evidence of bleeding from the gallbladder fossa or cystic artery leakage of bile from the cystic duct stump. Secondary trochars removed under direct vision. No bleeding was noted the trocar sites. The laparoscope was withdrawn and umbilical trocar removed. The abdomen was allowed to collapse. The fascia of the 12 mm trocar was closed with a zampcr-gb-baiml 0 Vicryl suture. The skin was closed with sutures of 4-0 Monocryl and Steri-Strips. The patient was extubated. The patient tolerated procedure well and was taken to the postanesthesia care unit in stable condition. Complications none 06/12/23816 Cosigner Signature (if applicable): CC: Dr. Deb Marroquin MD; Dr. Pat Mccartney MD Signed Normal [facility] Surgery Specimen Level IIIon 06-12-2023 Surgery Specimen Level III Patient Age/Sex Location Account Attending Physician ASHOK NUÑEZ 58/M [facility] [id number] Dr. Pat Mccartney MD Specimen: [id number] Received: 06/12/23 Status: CYNDEE Masters Num: [id number] Spec Type: GALLBLADDE Subm Dr: Dr. Pat Mccartney MD HEADER OPERATION: Laparoscopic cholecystectomy with IOC PRE-OP DIAGNOSIS: Biliary dyskinesia TISSUE SUBMITTED: Gallbladder -------- MICROSCOPIC DIAGNOSIS Gallbladder, cholecystectomy: Chronic cholecystitis and cholelithiasis. See comment. JEAN:connor 06/13/2023 COMMENT No stones are identified in the container or in the gallbladder. MICROSCOPIC DESCRIPTION Slides are reviewed. GROSS DESCRIPTION Received is one container labeled with the patient's name and designated gallbladder. The specimen consists of a gallbladder measuring 7.0 cm in length and up to 3.5 cm in diameter. The external surface is pink-aranda, smooth and glistening for the most part. Focally it is granular, hemorrhagic and contains cautery artifact. The gallbladder contains green-yellow mucoid bile. No stones are identified in the container or in the gallbladder. A few minute yellowish polyps are noted in the gallbladder mucosa, possible cholesterolosis. The gallbladder wall measures up to 0.2 cm in thickness. Evs Attendant sections from the gallbladder and the cystic duct are submitted in one cassette. / JEAN:connor 06/12/2023 TC:3 CPT: 74501 -------- Patient Age/Sex Location Account Attending Physician -------- ASHOK NUÑEZ/M [facility] [id number] Dr. Pat Mccartney MD -------- Signed (signature on file) Dr. Darío Saldana MD 06/13/23 1340 -------- Normal [facility] Comment on above: Performed By: #### P SUIII #### [facility] Laboratory [address] [place], [place], [address] Surgery Visit Reporton 06-07 Surgery Visit Report [facility] [address] [place] [address] OFFICE VISIT Date of Service: 06/07/23 MR#: [id number] Acct: [id number] Name: ASHOK NUÑEZ Rep #: [id number] : 1965 Provider: Dr. Pat segal MD Age/Sex: 58/M Location: [facility] Status: Signed Intake Vital Signs 06/07/23 14:00 Weight: 204 lb BP 110/69 Blood Pressure Location Rt brachial Position Sitting Respiration 17 Pulse 63 Pulse Source Monitor Pulse Oximetry (%) 97 Oxygen Delivery Method room air Intake Visit Reasons: GALLBLADDER Chief Complaint: gallbladder Is patient in pain?: No Allergies No Known Allergies Allergy (Unverified 06/07/23 14:01) Medications fluticasone 250 mcg-salmeterol 50 mcg/dose blistr powdr for inhalation inhalation 09/30/20 [History Confirmed 06/07/23] albuterol sulfate 90 mcg/actuation aerosol inhaler 2 puff inhalation Q6H PRN 06/07/23 [History Confirmed 06/07/23] PFSH Medical History (Updated 06/07/23 @ 14:[address] Pat Mccartney MD) Asthma Hx of malignant lymphoma Surgical History Hx of rhinoplasty Family History (Updated 06/07/23 @ 13:59 by Erica Matias) Mother Heart disease Hypertension Social History (Updated 06/07/23 @ 14:00 by Erica Matias) Smoking Status: Never smoker alcohol intake: never substance use type: does not use HPI HPI HPI: 58-year-old male presents for biliary dyskinesia. Patient states he has had a couple episode of left upper quadrant abdominal pain. Patient states it occurs after he eats he did have nausea with it denies any vomiting. Patient had an episode in July did change his diet at that time and lost about 30 pounds. Patient had another episode in April. Patient went to see his PCP did not need to go to the ER at that time. Patient had reflux years ago depending on the food he ate but has not had that for a while. 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 pylori negative. Patient did follow-up at [facility] was told to have and 17 did not need any further EGDs for this. Patient did have colonoscopy 5 to 6 years ago which was negative by Dr. Apple. Patient had ultrasound the gallbladder normal wall no pericholecystic fluid no gallstones, HIDA scan was then completed which showed less than 5% ejection fraction actually was no emptying on the images. Patient denies having abdominal pain currently with eating and states he is able to eat does not try to avoid fatty and greasy foods but does occasionally have a small amount with no symptoms. ROS General General: Yes weight change; No appetite, fatigue, colon cancer or breast cancer HEENT HEENT: No difficulty swallowing, eye injury, eye surgery, swollen glands or hoarseness Endo Endocrine: No thyroid disease, diabetes mellitus, thyroid cancer, Hair loss, heat intolerance or cold intolerance Skin Skin: No rash or changing moles Musc Musculoskeletal: No back problems, arthritis, rheumatoid arthritis, gout or joint pain Cardio Cardiovascular: No murmur, pacemaker, heart disease, atrial fibrillation, high blood pressure, heart attack, heart stent, palpitations, shortness of breat with exertion or chest pain Psych Psychiatric: No depression, anxiety or hearing voices Resp Respiratory: No shortness of breath, No sleep apnea, No cough, No COPD, Yes asthma, No emphysema and No wheezing Gastro Gastrointestinal: No abdominal pain, No nausea or vomiting, No diarrhea, No constipation, No blood in stool, No acid reflux, No hemorrhoids, No ulcers, Yes gallbladder problem and No black,tarry stools Anupam Hematologic: No blood thinners, No blood disorders, No bleeding, No anemia and No blood clots Neuro Neurologic: No numbness and No tingling Exam Const General: cooperative, healthy appearing, comfortable and no acute distress HENMT Head: normocephalic and atraumatic Neck Neck: supple Resp Effort Inspection: normal respiratory effort Cardio Rate: regular rate GI Inspection: non-distended Palpation: soft and nontender Skin General: no rashes or lesions noted Neuro General: CN's II-XI intact bilaterally Extrem General: normal to inspection Psych Mental Status: mental status grossly normal Attitude: cooperative Assessment and Plan Assessment and Plan (1) Biliary dyskinesia: Status: Acute Plan Patient story is a little atypical as he is complains of little more left upper quadrant pain when having these episodes in July and April. Patient's HIDA does show an ejection fraction of less than 5% actually 0 on the images. However patient is not really having pain and has had some fatty greasy foods but has been avoiding/limiting that in his diet. Reviewed the (more content not included)... Normal [facility] No Panel InformationOrdered By: Deb Marroquni on 05-22-2023 Prostate Specific Antigen Screen 1.59 ng/mL 0.00-4.00 [facility] Comment on above: This test was perfor med using the TPSA assay method for [employer] chemistry system. Values obtained with differentassay methods cannot be used interchangably.When changing PSA assays in the course of monitoring apatient, additional sequential testing should be carriedout to confirm baseline values. PSA,Total - Annual Screenon 05-22-2023 PSA,TOT SCREEN 1.59 ng/mL Normal 0.00-4.00 [facility] Comment on above: Result Comment: This test was performed using the TPSA assay method for the [employer] chemistry system. Values obtained with different assay methods cannot be used interchangably. When changing PSA assays in the course of monitoring a patient, additional sequential testing should be carried out to confirm baseline values. Performed By: #### L [phone] #### [facility] Laboratory [address] [place], [address] Hepatobilliary Imagingon Hepatobilliary Imaging [facility] Imaging Services [address] [place] [address] Hepatobilliary Imaging MR#: [id number] Acct: [id number] Name: ASHOK NUÑEZ Rep #: [id number] : 1965 M 58 From: Ralph Hanks PCP: Dr. Deb Marroquin MD Status: REG CLI Study: Hepatobilliary Imaging Date of Exam: 05/17/23 Exam# [id number] Ordering Dr: Deb Marroquin MD [id number] CLINICAL: 58-year-old male with history of abdominal pain. RADIONUCLIDE HEPATOBILIARY SCINTIGRAPHY COMPARISON: Abdominal ultrasound report 04/18/2023 FINDINGS: Following the intravenous administration of 5.5 mCi of 99m Tc Mebrofenin, hepatobiliary images reveal: 1. Relatively prompt and homogeneous radiopharmaceutical concentration is noted by a normal sized liver. No parenchymal defects are identified. 2. Gallbladder activity is identified at 15 minutes post radiopharmaceutical administration. 3. Small intestinal tract is observed at 45 minutes following tracer injection. 4. Washout of the radiopharmaceutical by the hepatic parenchyma appears qualitatively normal. Cholecystokinin (0.02 ug/kg) was administered intravenously over a 30-minute period. The post CCK gallbladder ejection fraction calculated at 20 minutes following Cholecystokinin administration was noted to be < 5 % (normal greater than 35%). NM/Hepatobilliary Imaging IMPRESSION: 1. ABNORMAL 99m Tc Mebrofenin hepatobiliary imaging examination with Cholecystokinin. A. A gallbladder ejection fraction calculated to be less than 35% following the administration of Cholecystokinin is consistent with the presence of functional hepatobiliary disease (gallbladder and/or sphincter of Oddi dyskinesia) and/or organic hepatobiliary disease (chronic acalculous cholecystitis and/or cystic duct syndrome) in patients with intermediate to high pretest probabilities of hepatobiliary illness. (Nellie Thompson, Journal of Nuclear Medicine 32:1695, 1991). Electronically Signed: Ralph Rao DO at 23:48 EST , CC: Dr. Deb Marroquin MD Customer Development Representative: Signed Normal [facility] Basophil percentageOrdered B y: Dr. Apple on 09-05-2022 Bilirubin [Mass/Vol] 0.30 mg/dL 0.20-1.00 [facility] Comment on above: For patients on eltr ombopag therapy, use of Dimension [place] TBIL is not recommended. Chloride [Moles/Vol] 108 mmol/L 98-107 [facility] Glucose [Mass/Vol] 100 mg/dL 74-106 [facility] Comment on above: Fasting Glucose resu lt from 100 to 125 mg/dL suggests IMPAIRED HOMEOSTASIS per A.D.A. criteria. Potassium [Moles/Vol] 4.2 mmol/L 3.5-5.1 [facility] Protein [Mass/Vol] 7.3 g/dL 6.4-8.2 [facility] Sodium [Moles/Vol] 138 mmol/L 136-145 [facility] WBC (Bld) [#/Vol] 8.0 10*3/uL 4.4-11.0 [facility] Blood erythrocytes count (nu mber/volume)Ordered By: Dr. Apple on 09-05-2022 RBC (Bld) [#/Vol] 5.01 10*6/uL 4.6-6.2 [facility] Blood hemoglobin measurement (mass/volume)Ordered By: Dr. Apple on 09-05-2022 Hemoglobin (Bld) [Mass/Vol] 15.1 g/dL 13.0-16.5 [facility] Blood platelet mean volumeOr dered By: Dr. Apple on 09-05-2022 Platelet mean volume (Bld) [Entitic vol] 10.7 fL 6.2-12.0 [facility] Determination of erythrocyte mean corpuscular volume (MCV)Ordered By: Dr. Apple on 09-05-2022 MCV (RBC) [Entitic vol] 88.2 fL 80-94 [facility] Hematocrit Auto (Bld) [Volum e fraction]Ordered By: Dr. Apple on 09-05-2022 Hematocrit (Bld) [Volume fraction] 44.2 % 40-54 [facility] Laboratory - Chemistry and C hemistry - challengeOrdered By: Dr. Apple on 09-05-2022 ALP [Catalytic activity/Vol] 91 U/L 45-117 [facility] ALT [Catalytic activity/Vol] 30 U/L 16-61 [facility] CO2 [Moles/Vol] 25.0 mmol/L 21.0-32.0 [facility] Globulin (S) [Mass/Vol] 3.6 g/dL 2.2-4.2 [facility] Urea nitrogen/Creatinine [Mass ratio] 19.8 mg/mg 10-20 [facility] Laboratory - Hematology and Cell countsOrdered By: Dr. Apple on 09-05-2022 Erythrocyte distribution width (RBC) [Entitic vol] 39.1 fL 35.1-43.9 [facility] Erythrocyte distribution width (RBC) [Ratio] 12.0 % 11.6-14.6 [facility] MCH (RBC) [Entitic mass] 30.1 pg 27.0-32.0 [facility] MCHC Auto (RBC) [Mass/Vol]Or dered By: Dr. Apple on 09-05-2022 MCHC (RBC) [Mass/Vol] 34.2 g/dL 32-36 [facility] No Panel InformationOrdered By: Dr. Apple on 09-05-2022 Anti-Nuclear Antibody Screen Negative Negative [facility] Estimated GFR (MDRD) Amer 88 mL/min >60 [facility] Comment on above: GFR Calc Estimated GFR (MDRD) Non-Af Amer 73 mL/min >60 [facility] Comment on above: Non- GFR Calc Platelets bldOrdered By: Dr. Apple on 09-05-2022 Platelets (Bld) [#/Vol] 264 10*3/uL 150-450 [facility] Serum [id number]-[id number]-uutmckvebdf me asurementOrdered By: Dr. Apple on 09-05-2022 Alpha 1 antitrypsin [Mass/Vol] 126 mg/dL 101-187 [facility] Comment on above: Performed at: - [facility] [address] [id number] Director: Yohan Dave PhD, Phone: [phone] Serum mitochondria antibody detectionOrdered By: Dr. Apple on 09-05-2022 Mitochondria Ab Ql (S) <20.0 Units 0.0-20.0 [facility] Comment on above: Negative 0.0 - 20.0 Equivocal 20.1 - 24.9 Positive >24.9Mitochondrial (M2) Antibodies are found in 90-96% ofpatients with primary biliary cirrhosis. Serum or plasma actin IgG an tibody assay (units/volume)Ordered By: Dr. Apple on 09-05-2022 Actin IgG Qn 7 Units 0-19 [facility] Comment on above: Negative 0 - 19 Weak positive 20 - 30 Moderate to strong positive >30 Actin Antibodies are found in 52-85% of patients with autoimmune hepatitis or chronic active hepatitis and in 22% of patients with primary biliary cirrhosis.Performed at: [facility] [address] [id number] Director: Yohan Dave PhD, Phone: [phone] Serum or plasma albumin loc urement (mass/volume)Ordered By: Dr. Apple on 09-05-2022 Albumin [Mass/Vol] 3.7 g/dL 3.2-5.0 [facility] Serum or plasma albumin/glob ulin mass ratioOrdered By: Dr. Apple on 09-05-2022 Albumin/Globulin [Mass ratio] 1.0 {ratio} 0.9-2.4 [facility] Serum or plasma calcium loc urement (mass/volume)Ordered By: Dr. Apple on 09-05-2022 Calcium [Mass/Vol] 9.0 mg/dL 8.5-10.1 [facility] Serum or plasma creatinine m easurement (mass/volume)Ordered By: Dr. Apple on 09-05-2022 Creatinine [Mass/Vol] 1.11 mg/dL 0.70-1.30 [facility] Comment on above: The validity of the calculated GFR & GFRAA in patients over 70 years has not been determined. Clinical correlation is essential. Serum or plasma ferritin spike surement (mass/volume)Ordered By: Dr. Apple on 09-05-2022 Ferritin [Mass/Vol] 153 ng/mL 26-388 [facility] Serum or plasma urea nitroge n measurement (mass/volume)Ordered By: Dr. Apple on 09-05-2022 Urea nitrogen [Mass/Vol] 22 mg/dL 7-18 [facility] Thin prep Papanicolaou smear with manual screeningOrdered By: Dr. Apple on 09-05-2022 Thin prep Papanicolaou smear with manual screening 17 U/L 15-37 [facility] Thin prep Papanicolaou smear with manual screening 5 5-15 [facility] No Panel InformationOrdered By: Dr. Marroquin on 08-11-2022 Hepatitis B Surface Antigen Non-Reactive Nonreactive [facility] Hepatitis C Antibody Non-Reactive Nonreactive [facility] Comment on above: Non Reactive: < 0.8 Equivocal: >/= 0.8 to < 1.0 Reactive: >/= 1.0The [facility] recommends that a reactive/equivocal HCV antibody result be followed up by the HCV Nucleic Acid Amplificationtest (931194) Hepatitis A Antibody Total Negative Negative [facility] Hepatitis B Core IgM Antibody Negative Negative [facility] Comment on above: Performed at: [employer] [place] [id number] Director: Yohan Dave PhD, Phone: [phone] Hepatitis Be Antibody Negative Negative [facility] Hepatitis Be Antigen Negative Negative [facility] Serum hepatitis B virus core antibody detectionOrdered By: Dr. Marroquin on 08-11-2022 HBV core Ab Ql (S) Negative Negative [facility] Serum hepatitis B virus surf vicente antibody IgG detectionOrdered By: Dr. Marroquin on 08-11-2022 HBV surface IgG Ql (S) Non-Reactive [facility] Comment on above: Non Reactive: Incons istent with immunity less than <10 mIU/mL Reactive: Consistent with immunity greater than or equal to 10 mIU/mL No Panel Informationon 05-03 Prostate Specific Antigen Screen 1.22 ng/mL 0.00-4.00 [facility] Work Phone: Comment on above: This test was perfor med using the TPSA assay method for the[facility] chemistry system. Values obtained with differentassay methods cannot be used interchangably.When changing PSA assays in the course of monitoring apatient, additional sequential testing should be carriedout to confirm baseline values. BASIC METABOLIC PANELon 09-0 Anion gap [Moles/Vol] 12 mmol/L Normal 10 - 20 [facility] Comment on above: Performed By: #### B MP #### [address] [address] Calcium [Mass/Vol] 8.7 mg/dL Normal 8.6 - 10.3 [facility] Comment on above: Performed By: #### B MP #### [address] [address] Chloride [Moles/Vol] 105 mmol/L Normal 98 - 107 [facility] Comment on above: Performed By: #### B MP #### [address] [address] Creatinine [Mass/Vol] 1.02 mg/dL Normal 0.50 - 1.30 [facility] Comment on above: Performed By: #### B MP #### [address] [address] GFR/1.73 sq M.predicted among non-blacks MDRD (S/P/Bld) [Vol rate/Area] 86 mL/min/{1.73_m2} Normal >90 [facility] Center Comment on above: Result Comment: CALC ULATIONS OF ESTIMATED GFR ARE PERFORMED USING THE 2020 CKD-EPI STUDY REFIT EQUATION WITHOUT THE RACE VARIABLE FOR THE IDMS-TRACEABLE CREATININE METHODS. https://jasn.asnjournals.org/content/early//ASN.228448 3496 Performed By: #### B MP #### [address] [address] Glucose [Mass/Vol] 123 mg/dL High 74 - 99 [facility] Comment on above: Performed By: #### B MP #### [address] [address] HCO3 (Bld) [Moles/Vol] 26 mmol/L Normal 21 - 32 [facility] Comment on above: Performed By: #### B MP #### [address] [address] Potassium [Moles/Vol] 4.1 mmol/L Normal 3.5 - 5.3 [facility] Comment on above: Performed By: #### B MP #### [address] [address] Sodium [Moles/Vol] 139 mmol/L Normal 136 - 145 [facility] Comment on above: Performed By: #### B MP #### [address] [address] Urea nitrogen [Mass/Vol] 22 mg/dL Normal 6 - 23 [facility] Comment on above: Performed By: #### B MP #### [place] [id number] CBC AND DIFFERENTIALon 02-09 DIFFERENTIAL SEE MANUAL DIFF Normal [facility] Comment on above: Performed By: #### C BCDF #### [address] [address] Erythrocyte distribution width (RBC) [Ratio] 13.0 % Normal 11.5 - 14.5 [facility] Comment on above: Performed By: #### C BCDF #### [place] [id number] Hematocrit (Bld) [Volume fraction] 47.3 % Normal 41.0 - 52.0 [facility] Comment on above: Performed By: #### C BCDF #### [address] [address] Hemoglobin (Bld) [Mass/Vol] 15.8 g/dL Normal 13.5 - 17.5 [facility] Comment on above: Performed By: #### C BCDF #### [address] [address] MCHC (RBC) [Mass/Vol] 33.4 g/dL Normal 32.0 - 36.0 [facility] Comment on above: Performed By: #### C BCDF #### [address] [address] MCV (RBC) [Entitic vol] 89 fL Normal 80 - 100 [facility] Comment on above: Performed By: #### C BCDF #### [place] [id number] Platelets (Bld) [#/Vol] 270 10*3/uL Normal 150 - 450 [facility] Comment on above: Performed By: #### C BCDF #### [place] [address] RBC 5.30 x10E12/L Normal 4.50 - 5.90 [facility] Comment on above: Performed By: #### C BCDF #### [place] [id number] WBC (Bld) [#/Vol] 14.8 10*3/uL High 4.4 - 11.3 [facility] Comment on above: Performed By: #### C BCDF #### [place] [address] CORONAVIRUS 2019 BY PCRon SARS-CoV-2 (COVID-19) RNA SURENDRA+probe Ql (Unsp spec) Not detected Normal Not Detected [facility] Comment on above: Result Comment: . This test has received FDA Emergency Use Authorization (EUA) and has been verified by [facility]. This test is only authorized for the duration of time that circumstances exist to justify the authorization of the emergency use of in vitro diagnostic tests for the detection of SARS-CoV-2 virus and/or diagnosis of COVID-19 infection under section 564(b)(1) of the Act, 21 U.S.C. 360bbb-3(b)(1), unless the authorization is terminated or revoked sooner. [facility] is certified under CLIA-88 as qualified to perform high complexity testing. Testing is performed in the [facility] laboratory located at [address] [place] [address]. SARS-CoV-2/Flu/RSV Multiplex Test: Fact sheet for providers: https://www.fda.gov/media/734404/download Fact sheet for patients: https://www.fda.gov/media/972734/download Performed By: #### C OV19 #### [place] [address] Lab Specimen Source Nasal, Nasopharyngeal Normal [facility] Comment on above: Performed By: #### C OV19 #### [place] [address] Performed By: #### I NFLP #### [place] [address] CT ABDOMEN AND PELVIS W IV C [facility] 02-09-2022 CT ABDOMEN AND PELVIS W IV CONTRAST Patient Name: ASHOK NUÑEZ STUDY: CT ABDOMEN AND PELVIS W IV CONTRAST; ; 02/09/2022 6:36 pm INDICATION: abd pain. epigastric LUQ . COMPARISON: None. ACCESSION NUMBER(S): [id number] ORDERING CLINICIAN: JULIA KHAN TECHNIQUE: Axial CT images of the abdomen and pelvis with coronal and sagittal reconstructed images performed after intravenous administration of 90 cc Omnipaque 350. FINDINGS: LOWER CHEST: No acute abnormality of the lung bases. Mild atelectasis. Normal heart size. No pericardial effusion. Circumferential mild mural thickening of the distal esophagus suggesting reflux esophagitis. Correlate clinically with GERD. BONES: No acute osseous abnormality. Glyc-yk-lfrpfjes degenerative changes of the imaged spine. No suspicious osseous lesion. ABDOMINAL WALL: Small fat containing umbilical hernia. ABDOMEN: LIVER: Enlarged. Steatotic, with sparing about carlyle hepatis and gallbladder fossa. BILE DUCTS: Normal caliber. GALLBLADDER: No calcified gallstones. No wall thickening. PANCREAS: Within normal limits. SPLEEN: Within normal limits. ADRENALS: Within normal limits. KIDNEYS and URETERS: Small nonobstructing calculi in the upper poles, measuring up to 3 mm. Left upper pole renal cortical scarring. VESSELS: Mild partially calcified atherosclerosis of abdominal aorta and branch vessels. No vascular branch occlusion or definite flow limiting luminal narrowing is seen. RETROPERITONEUM: No pathologically enlarged retroperitoneal lymph nodes. PELVIS: REPRODUCTIVE ORGANS: Prostate is not enlarged. BLADDER: Within normal limits. BOWEL: There are air-fluid levels in the stomach and throughout loops of small bowel, with mucosal hyperemia in the stomach and small bowel and mucosal fold thickening and small bowel, also noting fluid throughout the colon, overall suggesting infectious/inflammato ry gastroenteritis. No bowel dilation. Colonic diverticulosis without evidence of acute diverticulitis. No definite colonic wall thickening. Normal appendix. PERITONEUM: No ascites or free air, no fluid collection. IMPRESSION: There are air-fluid levels in the stomach and throughout loops of small bowel, with mucosal hyperemia in the stomach and small bowel and mucosal fold thickening and small bowel, also noting fluid throughout the colon, overall suggesting infectious/inflammato ry gastroenteritis. Otherwise, no evidence of acute abdominal or pelvic pathology. Small nonobstructing renal calculi. Hepatomegaly and hepatic steatosis. Additional findings as discussed above. Electronically signed by: SIMIN PALACIOS MD [facility] Covid 19 Resultson 2 SARS-CoV-2 (COVID-19) RNA SURENDRA+probe Ql (Unsp spec) NEGATIVE COVID-19 Test Coronaviruses are common world-wide and are the cause of many common colds. SARS-COV2 is a new coronavirus that began circulating worldwide in 2019 so we are calling it COVID-19. It has been estimated that four out of five patients with COVID-19 will recover at home without the need for medical attention. Symptoms of COVID-19 may include cough, fever, shortness of breath, loss of taste or smell and other flu-like symptoms including chills, sore muscles, sore throat, and headache. Severe illness is more common in older people and people with other health problems such as high blood pressure, obesity, and immune system problems. If the test is positive, you have COVID-19. You will be contacted by the ordering physicians office and instructed to remain on home isolation, in accordance with CDC guidelines. You may also be contacted by the [facility] to see if any of your close contacts may have been exposed to the virus and need to quarantine. If the test is negative, you likely do not have COVID-19 at this time, but you still may have a different illness that can spread to other people (like Influenza, or the Flu) and could still be at risk for getting COVID-19. We recommend that you stay away from other people to limit the spread of illness until your symptoms are improving and you are fever-free for 24 hours without the use of fever lowering medications such as acetaminophen or ibuprofen. No test is 100% accurate so if you are still concerned you may have COVID-19, talk to your doctor about the need to continue to stay away from others. Medicines Unless your provider told you not to use the following: Acetaminophen (Tylenol and others) is generally safe. Anti-inflammatory medications, such as Ibuprofen (Advil or Motrin) or Naproxen (Aleve) can also be used. Vdfu-zpq-mfrrtld cough and cold medicines can be used according to the instructions on the package. Some xusk-qqy-fqiclmr medicines also contain acetaminophen. Make sure you are not taking more than your recommended dose. For those not hospitalized, there is no specific treatment available for this illness. Antibiotics do not treat Coronaviruses. Follow-Up Follow up with your doctor by scheduling a virtual visit or consider follow-up at one of our urgent care fever clinics. If you are having difficulty breathing, or are very weak and having difficulty standing, this is a medical emergency. Call 911 or have someone take you to the nearest emergency room immediately. If possible, wear a facemask. Additional guidance from the CDC for patients who tested POSITIVE for COVID-19 How to isolate: Isolate yourself in a specific room at home and limit your contact with others. Use a separate bathroom from other members of the household, when possible. Leave home only to get essential medical care. Do not go to work, school or public areas. Avoid using public transportation, ride-sharing, or taxis. Restrict contact with pets and other animals. If you must care for your pet or be around animals while you are sick, wash your hands before and after your interaction and wear a facemask. Make sure that shared spaces in the home have good airflow, such as by an air conditioner or an opened window, weather permitting. Personal Hygiene Procedures: Wear a face mask when in the same room as other people or pets. If a face mask interferes with your breathing, others should wear a mask when sharing space with you. Frequent hand-washing: wash your hands with soap and water for at least 20 seconds. If soap and water are not available, use alcohol-based hand salvage mechanic. Avoid touching your eyes, nose, and mouth with unwashed hands. Household Hygiene Procedures: Avoid sharing personal household items such as dishes, glassware, cups, eating utensils, towels or bedding with other people or pets in your home. After use, these items should be washed with soap and hot water. Disinfect all high-touch surfaces every day with antibacterial cleaning solutions such as Lysol wipes, bleach, cleansers, etc. High-touch surfaces include tabletops, doorknobs, bathroom fixtures, toilets, phones, keyboards, tablets and bedside tables. Immediately clean any surfaces that may have blood, poop or body fluids on them, using antibacterial cleaning solutions such as Lysol wipes, bleach, cleansers, etc. If clothing or bedding come into contact with blood, poop or body fluids, they should be washed immediately. Follow the directions on the laundry detergent and clothing labels but hot water is recommended when possible. Stopping home isolation precautions: If possible, consult your doctor before stopping home isolation precautions. According to the CDC, you can discontinue home isolation precautions when you have met both of these criteria: Your fever and respiratory symptoms have been gone for 24 wilfredo (more content not included)... Normal [facility] HEPATIC FUNCTION PANELon Albumin [Mass/Vol] 4.1 g/dL Normal 3.4 - 5.0 [facility] Comment on above: Performed By: #### H EPFP #### [address] [address] ALP [Catalytic activity/Vol] 91 U/L Normal 33 - 120 [facility] Comment on above: Performed By: #### H EPFP #### [address] [address] ALT [Catalytic activity/Vol] 43 U/L Normal 10 - 52 [facility] Comment on above: Result Comment: Destiny ents treated with Sulfasalazine may generate falsely decreased results for ALT. Performed By: #### H EPFP #### [address] [address] AST [Catalytic activity/Vol] 23 U/L Normal 9 - 39 [facility] Comment on above: Performed By: #### H EPFP #### [address] [address] Bilirubin [Mass/Vol] 0.7 mg/dL Normal 0.0 - 1.2 [facility] Comment on above: Performed By: #### H EPFP #### [address] [address] Bilirubin.indirect [Mass/Vol] 0.2 mg/dL Normal 0.0 - 0.3 [facility] Comment on above: Performed By: #### H EPFP #### [address] [address] Protein [Mass/Vol] 7.2 g/dL Normal 6.4 - 8.2 [facility] Comment on above: Performed By: #### H EPFP #### [place] [id number] INFLUENZA A + B PCRon 2021 INFLUENZA A, PCR Not detected Normal Not Detected [facility] Comment on above: Result Comment: Resp iratory virus testing is performed routinely by PCR for Influenza A/B and RSV. Not Detected results do not preclude Influenza A/B or RSV infections since the adequacy of sample collection or low viral burden may impact the clinical sensitivity of this test method. Performed By: #### I NFLP #### [place] [id number] INFLUENZA B, PCR Not detected Normal Not Detected [facility] Comment on above: Result Comment: Resp iratory virus testing is performed routinely by PCR for Influenza A/B and RSV. Not Detected results do not preclude Influenza A/B or RSV infections since the adequacy of sample collection or low viral burden may impact the clinical sensitivity of this test method. Performed By: #### I NFLP #### [place] [id number] LACTATEon 02-09-2022 Lactate [Moles/Vol] 1.6 mmol/L Normal 0.4 - 2.0 [facility] Comment on above: Result Comment: Tiffanie puncture immediately after or during the administration of Metamizole may lead to falsely low results. Testing should be performed immediately prior to Metamizole dosing. Performed By: #### L ACT #### [address] [address] LIPASEon 02-09-2022 Lipase [Catalytic activity/Vol] 5 U/L Low 9 - 82 [facility] Comment on above: Result Comment: Tiffanie puncture immediately after or during the administration of Metamizole may lead to falsely low results. Testing should be performed immediately prior to Metamizole dosing. B-qnfjes-o-benzoquinone imine (metabolite of Acetaminophen) will generate erroneously low results in samples for patients that have taken toxic doses of acetaminophen. Performed By: #### L IPAS #### [address] [address] MANUAL DIFFERENTIALon 2021 % BAND NEUTROPHIL 8.0 % Normal 0.0 - 5.0 [facility] Comment on above: Performed By: #### B MP #### [address] [address] % BASOPHIL 0.0 % Normal 0.0 - 2.0 [facility] Comment on above: Performed By: #### B MP #### [address] [address] % EOSINOPHIL 0.0 % Normal 0.0 - 6.0 [facility] Comment on above: Performed By: #### B MP #### [address] [address] % LYMPHOCYTE 9.0 % Normal 13.0 - 44.0 [facility] Comment on above: Performed By: #### B MP #### [address] [address] % MONOCYTE 3.0 % Normal 2.0 - 10.0 [facility] Comment on above: Performed By: #### B MP #### [address] [address] % SEG NEUTROPHIL 80.0 % Normal 40.0 - 80.0 [facility] Comment on above: Result Comment: Perc ent differential counts (%) should be interpreted in the context of the absolute cell counts (cells/L). Performed By: #### B MP #### [address] [address] ANC 13.02 x10E9/L High 1.20 - 7.70 [facility] Comment on above: Performed By: #### B MP #### [place] [address] BAND NEUTROPHIL 1.18 x10E9/L High 0.00 - 0.70 [facility] Comment on above: Performed By: #### B MP #### [place] [address] BASOPHIL 0.00 x10E9/L Normal 0.00 - 0.10 [facility] Comment on above: Performed By: #### B MP #### [place] [address] EOSINOPHIL 0.00 x10E9/L Normal 0.00 - 0.70 [facility] Comment on above: Performed By: #### B MP #### [place] [address] LYMPHOCYTE 1.33 x10E9/L Normal 1.20 - 4.80 [facility] Comment on above: Performed By: #### B MP #### [place] [address] MONOCYTE 0.44 x10E9/L Normal 0.10 - 1.00 [facility] Comment on above: Performed By: #### B MP #### [place] [address] SEG NEUTROPHIL 11.84 x10E9/L High 1.20 - 7.00 [facility] Comment on above: Performed By: #### B MP #### [place] [address] Provider Note - ED v3on 090 Provider Note - ED v3 Provider Note: Chart Review: ED NOTES ED NOTES: ====HPI==== Patient is a 57-year-old male who presents to the emergency department with a chief complaint of abdominal pain. He reports that he has left upper quadrant abdominal pain. He states that he woke up last night with the pain and also had multiple episodes of nonbloody diarrhea. He states that while he was having a bowel movement he did pass out. He states that he actually passed out 3 times yesterday evening as he was having pain. The patient and the patient's states that this is normal for the patient, whenever he has pain he reacts by passing out. They state that this is not abnormal. Patient denies any chest pain. He denies any fever or chills. This morning he did vomit. There is nonbloody emesis. PMHX: Asthma, Stomach cancer, Kidney stones Social HX: Denies TOBACCO Occasionally ETOH Denies DRUGS ====Review of Systems==== 10 point system review is negative except for those specifically mentioned in history of present illness ====Physical Exam==== Constitutional/Genera l: Alert and oriented x3, well appearing, nontoxic, and in NAD. Head: Normocephalic and atraumatic. Eyes: EOMI, conjunctive normal, sclera nonicteric, subconjunctival layer is pink. Mouth: Oropharynx clear, handling secretions, no trismus, no asymmetry of the posterior oropharynx or uvular edema Neck: Supple, full ROM, non tender to palpation in the midline, no stridor, no crepitus, no meningeal signs. Trachea at midline. Respiratory: Lungs clear to auscultation bilaterally, no wheezes, rales, or rhonchi, not in respiratory distress. Cardiovascular: Regular rate, regular rhythm, no murmurs Chest: normal chest wall movement GI: Abdomen soft, mild tenderness to the LUQ, nondistended, no organomegaly, no palpable masses, no rebound, guarding, or rigidity. Musculoskeletal: Moves all extremities x4, warm and well perfused, no clubbing, cyanosis, or edema, cap refill <3 seconds Integument: Skin warm and dry, no rashes. Neurologic: GCS 15, no focal deficits, symmetric strength 5/5 in the upper and lower extremities bilaterally. Psychiatric: Normal affect. ====ED Course and Medical Decision Making==== See MDM section for review of findings & plan of care. Portions of this note were dictated by speech recognition. An attempt at proof reading was made to minimize errors. Minor errors in chain sales consultant may be present. Please call if questions.. HISTORY OF PRESENTING ILLNESS ASHOK is a 57 year old Male and was seen by me at 09-Feb-2022 15:47 for a chief complaint of abdominal pain (pt stated he woke up last night, got hot, passed out x 3, and vomited once, now his complaint is nausea and abdominal pain.)(1). Triage Information: Most recent Vital Sign Value Date Temp (F): 98.3 02-09-2022 16:01 Temp (C): 36.8 02-09-2022 16:01 Heart Rate (beats/min): 78 02-09-2022 16:01 Respirations (breaths/min): 18 02-09-2022 16:01 SpO2 (%): 96 02-09-2022 16:01 BP Systolic (mm Hg): 163 02-09-2022 16:01 BP Diastolic (mm Hg): 86 02-09-2022 16:01 PAST MEDICAL HISTORY ALLERGIES/INTOLERANCE S: No Known Allergies HEALTH HISTORY: No documented data. OUTPATIENT MEDICATIONS: Home Medications Review Status for Reconciliation: Complete Med Status: Patient Currently Takes Medications Drug Name: ProAir HFA 90 mcg/inh inhalation aerosol Instructions: 2 puff(s) inhaled every 6 hours, As Needed SIGNIFICANT EVENTS: Past Medical History Description:Asthma Description:stomach cancer Description:kidney stones CRITICAL CARE RESULTS: Recent Lab Results: I have reviewed these laboratory results: Urinalysis with Culture if Indicated 09-Feb-2022 19:26:00 ResultValue Color, Urine YELLOW Reference Range: STRAW,YELLOW Appearance, Urine CLEAR Specific Donnelly, Urine <1.005 A pH, Urine 5.0 Protein, Urine NEGATIVE Glucose, Urine NEGATIVE Blood, Urine NEGATIVE Ketones, Urine NEGATIVE Bilirubin, Urine NEGATIVE Urobilinogen, Urine <2.0 Nitrite, Urine NEGATIVE Leukocyte Esterase, Urine NEGATIVE Hepatic Function Panel 09-Feb-2022 16:39:00 ResultValue Aspartate Transaminase, Serum 23 ALB 4.1 T Bili 0.7 Bilirubin, Serum Direct - Conjugated 0.2 ALKP 91 Alanine Aminotransferase, Serum 43 T Pro 7.2 Complete Blood Count + Differential 09-Feb-2022 16:39:00 ResultValue White Blood Cell Count 14.8 H Red Blood Cell Count 5.30 HGB 15.8 HCT 47.3 MCV 89 MCHC 33.4 PLT 270 RDW-CV 13.0 Differential Comment SEE MANUAL DIFF Basic Metabolic Panel 09-Feb-2022 16:39:00 ResultValue Glucose, Serum 123 H NA 139 K 4.1 CL 105 Bicarbonate, Serum 26 Anion Gap, Serum 12 BUN 22 CREAT 1.02 GFR Male 86 Calcium, Serum 8.7 RBC Morphology 09-Feb-2022 16:39:00 ResultValue Red Blood Cell Morphology NORMAL Manual Differential Panel 09-Feb-2022 16:3 (more content not included)... Normal [facility] RED CELL MORPHOLOGYon 2021 RBC morphology finding Nom (Bld) NORMAL Normal [facility] Comment on above: Performed By: #### M ORP2 #### [place] [id number] [place] [id number] Risk Screen - Adult Emergenc yon 02-09-2022 Risk Screen - Adult Emergency Preferred Language: Preferred Language: Preferred Language for Discussing Health Care (patient/designee)Mark magana Advanced Directives: Advance Directive/DNRno Advance Directive Information Givenpatient/family declined Family Violence Adult: Abuse Screen: Are you or have you been threatened or abused physically, emotionally, or sexually by anyoneno Learning Assessment (Patient): Learning Assessment (Patient): Patient is Able to be Assessed for Learningyes Factors Influencing Readiness to Learnpain Factors that Impact Ability to Learnnone Devices/Methods Used to Communicatenone Learning Preferenceswritten material; verbal instruction Cultural Considerationsnone Developmental Considerationsnone Orthodoxy Considerationsnone Learning Assessment (Other Learner): Learning Assessment (Other Learner): Other learner availableyes... Learnerspouse Factors Influencing Readiness to Learnanxiety Factors that Impact Ability to Learnnone Devices/Methods Used to Communicatenone Learning Preferencesverbal instruction, written material Cultural Considerationsnone Developmental Considerationsnone Orthodoxy Considerationsnone Pressure Injury/TB/Substance: Pressure Injury: Do you have a coughno Smoking Statusnever smoker Alcohol Useoccasionally Admission Risk Screen: Significant IndicatorsComplete CAGE: CAGE: Is this an injured patient at a Trauma Center ([facility]/[place]): no Electronic Signatures: Belinda Calderon (RONAL) (Signed 09-Feb-2022 16:10) Authored: Preferred Language, Advanced Directives, Family Violence Adult, Learning Assessment (Patient), Learning Assessment (Other Learner), Pressure Injury/TB/Substance, Pressure Injury, CAGE Last Updated: 09-Feb-2022 16:10 by Belinda Calderon) Normal [facility] TROPONIN I, HIGH SENSITIVITY on 02-09-2022 TROPONIN I, HIGH SENSITIVITY 4 ng/L Normal 0 - 20 [facility] Comment on above: Result Comment: . Less than 99th percentile of normal range cutoff- Female and children under 18 years old <14 ng/L; Male <21 ng/L: Negative Repeat testing should be performed if clinically indicated. . Female and children under 18 years old 14-50 ng/L; Male 21-50 ng/L: Consistent with possible cardiac damage and possible increased clinical risk. Serial measurements may help to assess extent of myocardial damage. . >50 ng/L: Consistent with cardiac damage, increased clinical risk and myocardial infarction. Serial measurements may help assess extent of myocardial damage. . NOTE: Children less than 1 year old may have higher baseline troponin levels and results should be interpreted in conjunction with the overall clinical context. . NOTE: Troponin I testing is performed using a different testing methodology at [facility] than at other [facility]. Direct result comparisons should only be made within the same method. Performed By: #### B #### [facility] [address] [place] [address] Triage - EDon 02-09-2022 Triage - ED Quick Triage: The patient and/or guardian verbally acknowledges placement for services into the following (when Urgent Care Service hours are operating):emergency department Chart Review: ARRIVAL INFORMATION Mode of Arrival: private vehicle CHIEF COMPLAINT ASHOK NUÑEZ is a Male patient with a chief complaint of abdominal pain (pt stated he woke up last night, got hot, passed out x 3, and vomited once, now his complaint is nausea and abdominal pain.). Triage Date/Time: 09-Feb-2022 16:01 ARETHA: 3 Pain Rating (0-10): 7 = Severe Vital Signs: Temperature: 98.3F ( 36.8C) taken oral Blood Pressure: 163/86 Mean: Heart Rate: 78 Respiratory Rate: 18 Pulse Oximetry: 96% Johana Coma Scale: Best Eye Response: (E4) spontaneous Best Motor Response: (M6) obeys commands Best Verbal Response: (V5) oriented [place] Score: 15 Allergies: no Patient has homicidal thoughts: no Symptoms Are POSITIVE For: nausea. Symptoms Are Negative For: anorexia, constipation, diaphoresis, diarrhea, distention, fever, rectal blood and vomiting. Last Bowel Movement: 08-Feb-2022 16:06 Last Emesis: 01-Sep-2022 16:06 Risk Screens Suicide Risk Screen In the Past Month: Have you wished you were or wished you could go to sleep and not wake up no In the Past Month: Have you had any actual thoughts of killing yourself no In Your Lifetime: Have you ever done anything, started to do anything, or prepared to do anything to end your life no [place] Fall Scale Screening Has the patient fallen before (or is the patient in the ED as a result of a fall) has not had a fall Does the patient have an impaired gait does not have impaired gait Is the patient cognitively impaired not cognitively impaired Interventions: [place]nor Fall Interventions: LOW INTERVENTIONS: *patient oriented to surroundings and call system, * patient/family falls education completed and documented, *patients fall status communicated during bedside handoff, *whiteboard updated, *mode of toileting discussed with patient, *bed in low position with brakes locked, *call light in reach, * non-skid footwear TRAVEL HISTORY Travel History Coronavirus Screening: no exposure or symptoms Travel Exposure History: NO travel to International locations in the past 30 days PAIN Pain Scale Used: [place] Pain Rating (0-10): 7 = Severe Past Medical History: Past Medical History Reviewedyes kidney stones: Past Medical History, Active stomach cancer: Past Medical History, Active Asthma: Past Medical History, Active Electronic Signatures: Belinda Calderon (RONAL) (Signed 09-Feb-2022 16:08) Authored: Quick Triage, Risk Screens, Pain, Travel History, Chart Review, Scores, Past Medical History Last Updated: 09-Feb-2022 16:08 by Belinda Calderon (RONAL) Normal [facility] URINALYSIS WITH CULTURE IF I NDICATEDon 02-09-2022 Appearance (U) CLEAR Normal CLEAR [facility] Comment on above: Performed By: #### U ARFX #### [address] [address] Bilirubin Ql (U) Negative Normal NEGATIVE [facility] Comment on above: Performed By: #### U ARFX #### [address] [address] Color (U) YELLOW Normal STRAW,YELLOW [facility] Comment on above: Performed By: #### U ARFX #### [address] [place] [address] Glucose Ql (U) Negative Normal NEGATIVE [facility] Comment on above: Performed By: #### U ARFX #### [place] [address] Hemoglobin Ql (U) Negative Normal NEGATIVE [facility] Comment on above: Performed By: #### U ARFX #### [place] [address] Ketones Ql (U) Negative Normal NEGATIVE [facility] Comment on above: Performed By: #### U ARFX #### [place] [address] Leukocyte esterase Test strip Ql (U) Negative Normal NEGATIVE [facility] Comment on above: Performed By: #### U ARFX #### [place] [address] Nitrite Ql (U) Negative Normal NEGATIVE [facility] Comment on above: Performed By: #### U ARFX #### [place] [address] pH (U) 5.0 [pH] Normal 5.0 - 8.0 [facility] Comment on above: Performed By: #### U ARFX #### [place] [address] Protein Ql (U) Negative Normal NEGATIVE [facility] Comment on above: Performed By: #### U ARFX #### [place] [address] Specific gravity (U) [Rel density] <1.005 Abnormal 1.005 - 1.035 [facility] Comment on above: Performed By: #### U ARFX #### [place] [id number] Urobilinogen (U) [Mass/Vol] mg/dL Normal 0.0 - 1.9 [facility] Comment on above: Performed By: #### U ARFX #### [place] [id number] Vital Signs Date Time Vital Sign Value Performing Clinician Facility 01-11-2025 15:26-0400 Body temperature 98.71 [degF] Gus Suresh DO Work Phone: [facility] 01-11-2025 15:26-0400 Diastolic blood pressure 65 mm[Hg] Gus Suresh DO Work Phone: [facility] 01-11-2025 15:26-0400 Heart rate 65 /min Gus Suresh DO Work Phone: [facility] 01-11-2025 15:26-0400 Respiratory rate 16 /min Gus Suresh DO Work Phone: [facility] 01-11-2025 15:26-0400 SaO2% (BldA) [Mass fraction] 98 % Gus Suresh DO Work Phone: [facility] 01-11-2025 15:26-0400 Systolic blood pressure 125 mm[Hg] Gus Suresh DO Work Phone: [facility] 01-11-2025 10:48-0400 Body height 185.4 cm Gus Suresh DO Work Phone: [facility] 01-11-2025 10:48-0400 Body mass index (BMI) [Ratio] 27.05 kg/m2 Gus Suresh DO Work Phone: [facility] 01-11-2025 10:48-0400 Body weight 92.99 kg Gus Suresh DO Work Phone: [facility] 06-12-2023 12:30-0500 Body temperature 97.6 [degF] Dr. Deb Marroquin Work Phone: [facility] 06-12-2023 12:30-0500 Diastolic blood pressure 67 mm[Hg] Dr. Deb Marroquin Work Phone: [facility] 06-12-2023 12:30-0500 Heart rate 58 /min Dr. Deb Marroquin Work Phone: [facility] 06-12-2023 12:30-0500 Respiratory rate 16 /min Dr. Deb Marroquin Work Phone: [facility] 06-12-2023 12:30-0500 SaO2% (BldA) [Mass fraction] 97 % Dr. Deb Marroquin Work Phone: [facility] 06-12-2023 12:30-0500 Systolic blood pressure 127 mm[Hg] Dr. Deb Marroquin Work Phone: [facility] 06-12-2023 06:52-0500 Body height 185.[address] Deb Marroquin Work Phone: [facility] 06-12-2023 06:52-0500 Body mass index (BMI) [Ratio] 26.4 kg/m2 Dr. Deb Marroquin Work Phone: [facility] 06-12-2023 06:52-0500 Body weight [address] Deb Marroquin Work Phone: [facility] 06-07-2023 14:00-0500 Body weight 92.[address] Deb Marroquin Work Phone: [facility] 06-07-2023 14:00-0500 Diastolic blood pressure 69 mm[Hg] Dr. Deb Marroquin Work Phone: [facility] 06-07-2023 14:00-0500 Heart rate 63 /min Dr. Deb Marroquin Work Phone: [facility] 06-07-2023 14:00-0500 Respiratory rate 17 /min Dr. Deb Marroquin Work Phone: [facility] 06-07-2023 14:00-0500 SaO2% (BldA) [Mass fraction] 97 % Dr. Deb Marroquin Work Phone: [facility] 06-07-2023 14:00-0500 Systolic blood pressure 110 mm[Hg] Dr. Deb Marroquin Work Phone: [facility] 02-09-2022 22:00-0400 Body temperature 98.78 [degF] Text Entry Free [facility] 02-09-2022 22:00-0400 Diastolic blood pressure 78 mm[Hg] Text Entry Free [facility] 02-09-2022 22:00-0400 Heart rate 77 /min Text Entry Free [facility] 02-09-2022 22:00-0400 Respiratory rate 18 /min Text Entry Free [facility] 02-09-2022 22:00-0400 SaO2% (BldA) [Mass fraction] 96 % Text Entry Free [facility] 02-09-2022 22:00-0400 Systolic blood pressure 131 mm[Hg] Text Entry Free [facility] 12-01-2021 14:02-0400 Body height 185.4 cm Esteban Laws MD Work Phone: [facility] 12-01-2021 14:02-0400 Body mass index (BMI) [Ratio] 30.13 kg/m2 Esteban Laws MD Work Phone: [facility] 12-01-2021 14:02-0400 Body temperature 98.49 [degF] Esteban Laws MD Work Phone: [facility] 12-01-2021 14:02-0400 Body weight 103.6 kg Esteban Laws MD Work Phone: [facility] 12-01-2021 14:02-0400 Diastolic blood pressure 85 mm[Hg] Esteban Laws MD Work Phone: [facility] 12-01-2021 14:02-0400 Heart rate 77 /min Esteban Laws MD Work Phone: [facility] 12-01-2021 14:02-0400 Respiratory rate 16 /min Esteban Laws MD Work Phone: [facility] 12-01-2021 14:02-0400 SaO2% (BldA) [Mass fraction] 96 % Esteban Laws MD Work Phone: [facility] 12-01-2021 14:02-0400 Systolic blood pressure 134 mm[Hg] Esteban Laws MD Work Phone: [facility] Encounters Encounter Date Encounter Type Care Provider Facility Start: 01-28-2025 End: 01-28-2025 Office outpatient visit 15 minutes Joseph Espino MD Work Phone: [facility] Comment on above: Laceration of index finger of left hand without complication, subsequent encounter (Primary Dx); Open displaced fracture of distal phalanx of left middle finger with routine healing, subsequent encounter Start: 01-28-2025 End: 01-28-2025 ambulatory [facility] Start: 01-14-2025 End: 01-14-2025 Office outpatient new 45 minutes Joseph Espino MD Work Phone: [facility] Comment on above: Open displaced fract ure of distal phalanx of left middle finger, initial encounter (Primary Dx); Laceration of index finger of left hand without complication, initial encounter Start: 01-14-2025 End: 01-14-2025 ambulatory [facility] Start: 01-11-2025 End: 01-11-2025 Emergency department patient visit Gus Suresh DO Work Phone: [facility] Comment on above: Open displaced fract ure of middle phalanx of left index finger, initial encounter (Primary Dx) Start: 03-25-2024 End: 03-25-2024 ambulatory Deb Marroquin Facility:[facility] Start: 06-25-2023 End: 06-25-2023 ambulatory Deb Marroquin Facility:[facility] Start: 06-12-2023 ambulatory Pat Mccartney [facility] y:[facility] Start: 06-12-2023 Non-patient / Non-visit Dr. Rossi Marroquin Work Phone: [facility] Start: 06-12-2023 End: 06-12-2023 Admission to same day surgery center Dr. Deb Marroquin Work Phone: [facility] Start: 06-12-2023 End: 06-12-[address] Deb Marroquin Work Phone: [facility] Work Phone: Start: 06-07-2023 End: 06-07-[address] Deb Marroquin Work Phone: [facility] Work Phone: Start: 06-07-2023 End: 06-07-[address] [facility] Facility:[facility] Start: 05-22-2023 End: 05-22-2023 ambulatory [facility] Work Phone: Start: 05-22-2023 End: 05-22-2023 Patient encounter procedure [facility] Start: 05-22-2023 End: 05-22-2023 ambulatory Deb Marroquin Facility:[facility] Start: 05-17-2023 End: 05-17-2023 ambulatory [facility] Work Phone: Start: 05-17-2023 End: 05-17-2023 Patient encounter procedure [facility]-Nuclear Medicine, [facility] Work Phone: Start: 05-17-2023 End: 05-17-2023 ambulatory Deb Marroquin Facility:[facility] Start: 04-18-2023 End: 04-18-2023 ambulatory [facility] Work Phone: Start: 04-18-2023 End: 04-18-2023 Patient encounter procedure [facility]-Ultrasound, [facility] Work Phone: Start: 09-05-2022 End: 09-05-2022 ambulatory [facility] Work Phone: Start: 09-05-2022 End: 09-05-2022 Patient encounter [facility] Start: 08-11-2022 End: 08-11-2022 Patient encounter procedure [facility]-Cat Scan, [facility] Start: 05-03-2022 End: 05-03-2022 ambulatory [facility] Work Phone: Start: 05-03-2022 End: 05-03-2022 Patient encounter procedure [facility]-Laboratory, [facility] Start: 02-09-2022 End: 02-09-2022 Emergency department patient visit Julia Khan [facility] 15 Start: 12-01-2021 ambulatory ESTEBAN LAWS Facili ty:[facility] Start: 12-01-2021 End: 12-01-2021 Office consultation new/estab patient 60 min Esteban Laws MD Work Phone: Division of Hematology & Oncology Comment on above: MALT lymphoma (Prima ry Dx) Start: 11-02-2021 End: 11-02-2021 Patient encounter procedure [facility]-Cat Scan, [facility] Start: 10-11-2021 End: 10-11-2021 Patient encounter procedure [facility]-Radiology, [place] Procedures Date Procedure Procedure Detail Performing Clinician Start: 01-28-2025 Follow-up visit Follow-up JOSEPH ESPINO Start: 01-11-2025 Assay of troponin quantitative Gus Sruesh [employer] Work Phone: Start: 01-11-2025 Radex hand minimum 3 views Gus Suresh DO Work Phone: Start: 01-11-2025 Basic metabolic pane l calcium total Gus Suresh DO Work Phone: Start: 01-11-2025 Troponin I.cardiac p yohan - Serum or Plasma by High sensitivity method Gus Suresh DO Work Phone: Start: 06-12-[address] Deb peacock Work Phone: Start: 06-12-2023 Fluoroscopic guidance Ann Marroquin Work Phone: Start: 06-12-2023 Total cholecystectom y and exploration of common bile duct Dr. Deb Marroquin Work Phone: Start: 05-17-2023 Radionuclide imaging of liver and/or biliary tract using radioactive isotope Start: 04-18-2023 Ultrasonography of abdomen Start: 08-11-2022 CT of abdomen with contrast Start: 02-09-2022 End: 02-09-2022 EKG impression Mata Sommers Start: 11-02-2021 CT of head without contrast Start: 10-11-2021 Radiography of nasal sinuses Plan of Treatment Date Care Activity Detail Author Start: 01-11-2035 DTaP/Tdap/Td Vaccine s (2 - Td or Tdap) DTaP/Tdap/Td Vaccines (2 - Td or Tdap) [facility] Start: 01-11-2035 DTaP/Tdap/Td Vaccine s (3 - Td or Tdap) DTaP/Tdap/Td Vaccines (3 - Td or Tdap) [facility] Start: 01-12-2028 Diabetes mellitus screening Diabetes Screening [facility] Start: 02-09-2025 Influenza vaccination Influenza Vacc ine (#1) [facility] Start: 06-12-2023 Patient discharge [facility] Start: 02-09-2022 Influenza vaccination INFLUENZ A VACCINE (Season Ended) [facility] Start: 02-05-2016 Prostate specific antigen measurement [facility] Start: 02-05-2016 Zoster vaccine hzv l fritz for subcutaneous use ZOSTER (SHINGLES) VACCINE (1 of 2) [facility] Start: 2011 Colonoscopy COLORECTAL CAN CER SCREENING DISCUSSION [facility] Start: 2006 Fasting lipid profile LIPID SCREENIN G [facility] Start: 1985 Hepatitis B Vaccines (1 of 3 - 19+ 3-dose series) Hepatitis B Vaccines (1 of 3 - 19+ 3-dose series) [facility] Start: 1985 Pneumococcal vaccination Pneumococcal Vaccine (1 of 2 - PCV) [facility] Start: 1985 Third diphtheria, tetanus and acellular pertussis (DTaP) vaccination TDAP (ADULT) [facility] Start: 1985 Zoster Vaccines (1 o f 2) Zoster Vaccines (1 of 2) [facility] Start: 02-05-1984 Hepatitis C screening Hepatitis C Sc reening [facility] Start: 02-05-1984 Tetanus vaccination TETANUS [facility] Start: 1981 HIV screening HIV SCREENING DISCUSSION [facility] Start: 02-05-1972 PNEUMOCOCCAL VACCINE SERIES (1 - PCV) PNEUMOCOCCAL VACCINE SERIES (1 - PCV) [facility] Start: 1971 COVID-19 VACCINE (#1) COVID-19 VACCI NE (#1) [facility] Start: 1967 MMR Vaccines (1 of 1 - Standard series) MMR Vaccines (1 of 1 - Standard series) [facility] Start: 1966 Hepatitis C antibody , confirmatory test HEPATITIS C VIRUS SCREENING [facility] Start: 1966 HIV screening HIV Screening [facility] Start: 1966 Lipid panel Lipid Panel [facility] Start: 1966 Screening for malign ant neoplasm of colon [facility] Start: 1966 Yearly Adult Physical Yearly Adult P hysical [facility] End: 01-11-2025 ECG 12 lead ECG 12 lead ECG STAT Once for 1 Occurrences starting 01/11/2025 until 01/11/2025 [facility] Work Phone: Comment on above: Once for 1 Occurrenc es starting 01/11/2025 until 01/11/2025 Patient referral [facility] Work Phone: Immunizations Immunization Date Immunization Notes Care Provider Fa cility 01-11-2025 tetanus toxoid, redu rakel diphtheria toxoid, and acellular pertussis vaccine, adsorbed Gus Suresh DO Work Phone: [facility] 02-09-2015 influenza virus vaccine, unspecified formulation Esteban Laws MD Work Phone: [facility] Payers Date Payer Category Payer Self-pay [id number] 2021 Private Health Insurance GENERIC COMMERCIAL [id number] 2021 Unknown [id number] 2017 Unknown [id number] 1999 Unknown [id number] 1966 Unknown [id number] [id number] 1966 Unknown [id number]. [id number] 1966 Unknown [id number]. [id number] 1966 Unknown [id number]. [id number] 1966 Unknown [id number] [id number]. 2.1245 Unknown [id number] Unknown [id number]. [id number] Unknown [id number]. [id number] Unknown [id number]. [id number] Unknown [id number]. [id number] Unknown [id number]. [id number] Unknown [id number]. [id number] Unknown [id number]. [id number] Unknown [id number] [id number] Social History Date Type Detail Facility Start: 09-30-2020 End: 09-30-2020 Tobacco smoking status NHIS Unknown if ever smoked [facility] Start: 1965 Sex Assigned At Male [facility] Start: 12-01-2021 End: 01-11-2025 Tobacco smoking status NHIS Never smoked tobacco [facility] Start: 12-01-2021 End: 01-11-2025 Tobacco use and exposure Smokeless tobacco non-user [facility] Start: 12-01-2021 Alcohol intake Current drinke r of alcohol (finding) [facility] Start: 04-30-2017 History SDOH Alcohol Comment rare [facility] Start: 1965 Sex Assigned At Not on file [facility] Start: 01-11-2025 End: 02-08-2025 Alcoholic beverage intake Lifetime non-drinker (finding) [facility] Work Phone: Start: 01-11-2025 End: 01-31-2025 History of Social function [facility] Work Phone: Start: 01-11-2025 End: 01-31-2025 Tobacco use panel [facility] Work Phone: Start: 05-06-2022 Sex Male [facility] Goals Date Patient Goal Desired Activity /State Functional Status Date Assessment Result Facility 01-11-2025 Radiant - suicide s everity rating scale screener - recent [C-SSRS] [facility] Work Phone: Mental Status Date Assessment Result Facility 06-12-2023 Cognitive function Voice/Name [facility] Work Phone: Clinical Notes 12-01-2021 to 01-28-2025 Joseph Espino MD - 01/28/2025 10:30 AM Susanna Espino MD - 01/14/2025 11:00 AM EDTDischarge InstructionsAttachmentsStamador Suresh DO - 01/11/2025 10:31 AM EDT Note Date & Type Note Facility 01-28-2025 History of Presen t illness Narrative CHIEF COMPLAINT Follow-up hand ASSESSMENT + PLAN Healing left long distal phalanx tuft fracture and significant skin lacerations The central portion of the volar skin has and formed an eschar. I reviewed how new skin will grow underneath this over the next several weeks and then it will separate like the scab on the skin and knee. I reviewed how to watch for infection which would be the only concerning finding. The majority of the sutures, except those that were exclusively in the eschar, were removed today without difficulty. This may get wet but should not be submerged. Gently advance activity as symptoms allow. Follow-up in 2 or 3 weeks for clinical check, or certainly sooner with any interval concerns. HISTORY OF PRESENT ILLNESS Patient returns today, as directed, 2 weeks after last visit for follow-up on left long finger tablesaw injury. He has been doing the dressing changes as instructed. Pain decreasing. No new concerns. No interval trauma. PHYSICAL EXAM He remains well-developed, well-nourished male in no acute distress. He appears his stated age and has a pleasant affect. Bandage removed without difficulty. Skin intact. The central volar third of the long finger pulp has become a black stable eschar. Nylon sutures remain in place. Nail is stable. Intact DIP flexion and extension, just a jog. No tenderness over the more proximal flexor sheath. Radial and ulnar thirds of the finger are sensate with capillary refill less than 2 seconds. Good sagittal plane balance. Symmetric wrist motion. IMAGING / LABS / EMGs None today Electronically Signed Brown Espino MD Orthopaedic Hand Surgery [phone] documented in this encounter [facility] Work Phone: 01-14-2025 History of Presen t illness Narrative CHIEF COMPLAINT Left hand injury ASSESSMENT + PLAN Left index and long tablesaw injuries with comminuted distal phalanx fracture long I reviewed the significant nature of both of these injuries. It is too soon to remove the sutures. I do think it is likely the long finger tip may lose some tissue. I reviewed the way that that would heal in. I discussed the option of formal shortening amputation and primary closure, along with the major risks and benefits of that surgery. We agreed on simply letting nature take its course for now. Watch for the warning signs of infection that I reviewed, and contact my office if you should notice any of these. Follow-up in 1 or 2 weeks for clinical check and suture removal. 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 This occurred on January 11 as he was cutting some wood. He was seen at [facility] ER where the wounds were irrigated and sutured. X-rays were concerning for fracture. He presents today for first Orthopedic Hand evaluation. Pain is decreasing appropriately. He is taking antibiotic. He is not diabetic or hypothyroid. He does not smoke. REVIEW OF SYSTEMS A 30-item multi-system Review Of Systems was obtained on today's intake form. This was reviewed with the patient and is correct. The pertinent positives and negatives are listed above. The form has been scanned separately into the medical record. PHYSICAL EXAM Constitutional: Appears stated age. Well-developed and well-nourished male in no acute distress. Psychiatric: Pleasant normal mood and affect. Behavior is appropriate for the situation. Head: Normocephalic and atraumatic. Eyes: Pupils are equal and round. Cardiovascular: 2+ radial and ulnar pulses. Fingers well-perfused. Respiratory: Effort normal. No respiratory distress. Speaking in complete sentences. Neurologic: Alert and oriented to person, place, and time. Skin: Skin is intact, warm and dry, except as below. Hematologic / Lymphatic: No lymphedema or lymphangitis. Extremities / Musculoskeletal: Bandage removed from the left hand. Long finger has a significant stellate type laceration involving the nailbed and pulp. Nylon sutures in place. The central third is a little dusky but radial and ulnar borders of the digit look good. No tenderness over the flexor sheath more proximally. No fluctuance or expressible fluid or increase skin temperature to suggest infection. There is a sutured laceration on the index ulnar border in good condition. No threatened tissue there. Pulp sensation a little decreased ulnarly in the index but still present by blinded confrontation light touch. Symmetric wrist and forearm motion. IMAGING / LABS / EMGs X-rays left hand from [facility] on January 11 were independently interpreted by me today and show a comminuted fracture of the distal phalanx of the long finger with significant bone loss. Interestingly, the subchondral plate is in place though the majority of the bone is volarly displaced. I suspect extensor attachment is intact but flexor is off volarly. Joints are concentric and well-preserved. Medical History[1] Medication Documentation Review Audit Reviewed by Joseph Espino MD (Physician) on 01/31/25 at 0848 Medication Order Taking? Sig Documenting Provider Last Dose Status albuterol (ProAir HFA) 90 mcg/actuation inhaler [id number] No Inhale 2 puffs every 6 hours if needed for wheezing or shortness of breath (PRN). Historical Provider, Unknown Active tadalafil (Cialis) 5 mg tablet [id number] No Take 1 tablet (5 mg) by mouth early in the morning.. Historical Provider, 01/10/2025 8:00 PM Active RX Allergies[2] Social History Socioeconomic History Marital status: Spouse name: Not on file Number of children: Not on file Years of education: Not on file Highest education level: Not on file Occupational History Not on file Tobacco Use Smoking status: Never Smokeless tobacco: Never Substance and Sexual Activity Alcohol use: Never Drug use: Never Sexual activity: Not on file Other Topics Concern Not on file Social History Narrative Not on file Social Drivers of Health Financial Resource Strain: Not on file Food Insecurity: Not on file Transportation Needs: Not on file Physical Activity: Not on file Stress: Not on file Social Connections: Not on file Intimate Partner Violence: Not on file Housing Stability: Not on file Surgical History[3] Electronically Signed Brown Espino MD Orthopaedic Hand Surgery [phone] [1] Past Medical History: Diagnosis Date Cancer (Multi) [2] No Known Allergies [3] History reviewed. No pertinent surgical history. documented in this encounter [facility] Work Phone: 01-11-2025 Hospital Discharg e instructions Gus G Suresh, DO - 01/11/2025 3:[address] Espino's office tomorrow to schedule your appointment. The number to call to schedule appointments is [phone]. He has locations in [place] and in [place]. You can follow-up at either office-which ever is more convenient for you and wherever you can get the soonest appointment. As discussed, leave your bandage on for 24 hours. You can perform a dressing change tomorrow and you can apply [id number] Neosporin as discussed. The following attachments cannot be sent through Care Everywhere.Finger fracture (Wallisian)Wound Care Discharge Instructions (Wallisian)documented in this encounter [facility] Work Phone: 01-11-2025 Physician Emergency department Note HPI Chief Complaint Patient presents with Finger Laceration Left hand laceration from table saw, middle and index finger. Bleeding controlled. Tetanus status unknown Patient presents to the emergency department secondary to lacerations of the 2nd and 3rd digits of the left hand. This occurred with a table saw just prior to arrival. Unknown tetanus status. 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 Constitutional: Appearance: Normal appearance. He is normal weight. He is diaphoretic. He is not ill-appearing. Comments: Appears anxious and tremors. Provides a full history. Diaphoretic. HENT: Head: Normocephalic and atraumatic. Nose: Nose normal. No rhinorrhea. Neck: Comments: Trachea is midline Cardiovascular: Rate and Rhythm: Normal rate and regular rhythm. Heart sounds: No murmur heard. Pulmonary: Effort: Pulmonary effort is normal. Breath sounds: Normal breath sounds. No wheezing. Abdominal: General: Abdomen is flat. Bowel sounds are normal. There is no distension. Palpations: Abdomen is soft. Tenderness: There is no abdominal tenderness. Musculoskeletal: General: Tenderness, deformity and signs of injury present. Cervical back: Normal range of motion. Right lower leg: No edema. Left lower leg: No edema. Comments: Patient has macerated lacerations to the distal aspect of the 2nd and 3rd digits of the left hand. No active bleeding. Skin: General: Skin is warm. Findings: No rash. Neurological: General: No focal deficit present. Mental Status: He is alert and oriented to person, place, and time. Mental status is at baseline. Sensory: No sensory deficit. Psychiatric: Comments: Anxious and tremored ED Course & MDM Diagnoses as of 01/11/25 1503 Open displaced fracture of middle phalanx of left index finger, initial encounter No data recorded [place] Coma Scale Score: 15 (01/11/25 0944 : Madeleine Wylie RN) Medical Decision Making Twelve-lead EKG was interpreted by myself and this was noted to contribute directly to patient care. Study reveals a sinus bradycardia 55 bpm, normal axis, normal R wave progression, no acute ischemic changes Upon my initial examination the patient felt syncopal. He was diaphoretic. He was bradycardic in the 30s. He was given a cold cloth for his head and given IV fluids and pain medication and this was noted to improve his generalized symptoms and bradycardia. Patient's bradycardic episode resolved after he was noted to be medicated. I do feel that this was once again a vagal episode due to the shock and pain from his injury. Patient's lacerations were repaired by the midlevel provider under my direct supervision. This was tolerated well by the patient without any apparent complications. 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 Espino who is on-call for hand trauma. He agrees with discharge home, antibiotics, pain control, and follow-up in his office this week. The patient was given the scheduling number to call and make this appointment tomorrow and he was given wound care instructions as well. Return for any other ongoing concerns Critical care time of this patient excluding billable procedures is 60 minutes secondary to multiple repeat physical examinations, chart review, interpretation of radiographic studies, and expert consultation. Procedure Procedures [1] Past Medical History: Diagnosis Date Cancer (Multi) [2] History reviewed. No pertinent surgical history. [3] No family history on file. [4] Social History Tobacco Use Smoking status: Never Smokeless tobacco: Never Substance Use Topics Alcohol use: Never Drug use: Never Gus Suresh DO 01/11/25 1504 [facility] Work Phone: 01-11-2025 Emergency department Note HPI Chief Complaint Patient presents with Finger Laceration Left hand laceration from table saw, middle and index finger. Bleeding controlled. Tetanus status unknown Patient presents to the emergency department secondary to lacerations of the 2nd and 3rd digits of the left hand. This occurred with a table saw just prior to arrival. Unknown tetanus status. 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 Constitutional: Appearance: Normal appearance. He is normal weight. He is diaphoretic. He is not ill-appearing. Comments: Appears anxious and tremors. Provides a full history. Diaphoretic. HENT: Head: Normocephalic and atraumatic. Nose: Nose normal. No rhinorrhea. Neck: Comments: Trachea is midline Cardiovascular: Rate and Rhythm: Normal rate and regular rhythm. Heart sounds: No murmur heard. Pulmonary: Effort: Pulmonary effort is normal. Breath sounds: Normal breath sounds. No wheezing. Abdominal: General: Abdomen is flat. Bowel sounds are normal. There is no distension. Palpations: Abdomen is soft. Tenderness: There is no abdominal tenderness. Musculoskeletal: General: Tenderness, deformity and signs of injury present. Cervical back: Normal range of motion. Right lower leg: No edema. Left lower leg: No edema. Comments: Patient has macerated lacerations to the distal aspect of the 2nd and 3rd digits of the left hand. No active bleeding. Skin: General: Skin is warm. Findings: No rash. Neurological: General: No focal deficit present. Mental Status: He is alert and oriented to person, place, and time. Mental status is at baseline. Sensory: No sensory deficit. Psychiatric: Comments: Anxious and tremored ED Course & MDM Diagnoses as of 01/11/25 1503 Open displaced fracture of middle phalanx of left index finger, initial encounter No data recorded [place] Coma Scale Score: 15 (01/11/25 0944 : Madeleine Wylie RN) Medical Decision Making Twelve-lead EKG was interpreted by myself and this was noted to contribute directly to patient care. Study reveals a sinus bradycardia 55 bpm, normal axis, normal R wave progression, no acute ischemic changes Upon my initial examination the patient felt syncopal. He was diaphoretic. He was bradycardic in the 30s. He was given a cold cloth for his head and given IV fluids and pain medication and this was noted to improve his generalized symptoms and bradycardia. Patient's bradycardic episode resolved after he was noted to be medicated. I do feel that this was once again a vagal episode due to the shock and pain from his injury. Patient's lacerations were repaired by the midlevel provider under my direct supervision. This was tolerated well by the patient without any apparent complications. 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 Espino who is on-call for hand trauma. He agrees with discharge home, antibiotics, pain control, and follow-up in his office this week. The patient was given the scheduling number to call and make this appointment tomorrow and he was given wound care instructions as well. Return for any other ongoing concerns Critical care time of this patient excluding billable procedures is 60 minutes secondary to multiple repeat physical examinations, chart review, interpretation of radiographic studies, and expert consultation. Procedure Procedures [1] Past Medical History: Diagnosis Date Cancer (Multi) [2] History reviewed. No pertinent surgical history. [3] No family history on file. [4] Social History Tobacco Use Smoking status: Never Smokeless tobacco: Never Substance Use Topics Alcohol use: Never Drug use: Never Gus Suresh DO 01/11/25 1507 documented in this encounter [facility] Work Phone: 06-12-2023 Discharge summary Note Date/Time June 12, 2023 8: 17am [facility] Medical Records Department [address] [place] [address] Instructions for Home/Discharge Instructions 06/12/23 0817 MR#: [id number] Acct: [id number] Name: ASHOK NUÑEZ Rep #:[id number] : 1965 58 From: Pat Mccartney MD PCP: Dr. Deb Marroquin MD Status:[facility] Discharge Instructions Diet Discharge Diet: Light diet - advance as tolerated Activity Discharge Activity: May Not Drive (while taking narcotic pain medications.) May shower in (days): 1 Lifting Restrictions: no lifting >20 lbs x 2 wks, no strenuous exercise for 4 wks Dressing / Incision Call your doctor if your incision/area has: Continuous Slow Oozing, Sudden Increased Bleeding, Increased Pain/ Swelling, Increased Redness, Foul Smelling Discharge and Swelling at the incision site Call your doctor if you observe: Fever of 101 or Higher Remove Dressing in: 2 days Cleanse incision/area with: Soap & Water Additional Dressing/Incision Instructions:: Steri-Strips will fall off in 7 to 10 days, if they do not fall off okay to remove after 10 days. Follow Up Care Please Follow Up With: Pat Mccartney MD When: Call the office for a follow-up appointment 2 weeks; after 5 PM and on call [phone] with any concerns. Test Results: Test results from this visit will be discussed in further detail at your follow-up appointment, if applicable. Discharge Plan Admission Attending Provider: Pat Mccartney Primary Care Provider: Deb Marroquin Discharge Orders/Prescriptions Prescriptions: New oxycodone-acetaminophen 5-325 mg tablet 1 - 2 tab PO Q6H PRN (Reason: pain) 3 Days Qty: 14 0RF Continued fluticasone propion-salmeterol 250-50 mcg/dose blister with device 1 inh INHALATION Q12H albuterol sulfate 90 mcg/actuation HFA aerosol inhaler 2 puff inhalation Q6H PRN (Reason: ASTHMA) Referrals / Follow Up: Deb Marroquin MD [Primary Care Provider] - Disposition Disposition (needs filled in before D/C Order can be placed): Home, Self Care 06/12/23 08<Electronically signed by Pat Mccartney MD>Pat Mccartney MD CC: Dr. Deb Marroquin MD ~ Signed [facility] Work Phone: 1(102) 942-132701-02-2024 History and physical note Author Pat Mccartney [facility] June 12, 2023 7:06am Note Date/Time June 12, 2023 7: 06am [facility] Medical Records Department [address] [place] [address] History & Physical Exam 06/12/23 0706 MR#: [id number] Acct: [id number] Name: ASHOK NUÑEZ Rep #:[id number] : 1965 58 From: Pat Mccartney MD PCP: Dr. Deb Marroquin MD Status:[facility] Location: [place] [address] History and Physical Date of Admission: 06/12/23 Date of Service: 06/07/23 MR#: [id number] Acct: [id number] Name: ASHOK NUÑEZ Rep #: [id number] : 1965 Provider: Dr. Pat Mccartney MD Age/Sex: 58/M Location: [facility] Status: Signed Intake Vital Signs 06/07/2314:00 Weight: 204 lb BP 110/69 Blood Pressure Location Rt brachial Position Sitting Respiration 17 Pulse 63 Pulse Source Monitor Pulse Oximetry (%) 97 Oxygen Delivery Method room air Intake Visit Reasons: GALLBLADDER Chief Complaint: gallbladder Is patient in pain?: No Allergies No Known Allergies Allergy (Unverified 06/07/23 14:01) Medications fluticasone 250 mcg-salmeterol 50 mcg/dose blistr powdr for inhalation inhalation 09/30/20 [History Confirmed 06/07/23] albuterol sulfate 90 mcg/actuation aerosol inhaler 2 puff inhalation Q6H PRN 06/07/23 [History Confirmed 06/07/23] PFSH Medical History (Updated 06/07/23 @ 14:[address] Pat Mccartney MD) Asthma Hx of malignant lymphoma Surgical History Hx of rhinoplasty Family History (Updated 06/07/23 @ 13:59 by Erica Matias) Mother Heart disease Hypertension Social History (Updated 06/07/23 @ 14:00 by Erica Matias) Smoking Status: Never smoker alcohol intake: never substance use type: does not use HPI HPI HPI: 58-year-old male presents for biliary dyskinesia. Patient states he has had a couple episode of left upper quadrant abdominal pain. Patient states it occurs after he eats he did have nausea with it denies any vomiting. Patient had an episode in July did change his diet at that time and lost about 30 pounds. Patient had another episode in April. Patient went to see his PCP did not need to go to the ER at that time. Patient had reflux years ago depending on the food he ate but has not had that for a while. 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 pylori negative. Patient did[facility]-up at [facility] was told to have and 17 did not need any further EGDs for this. Patient did have colonoscopy 5 to 6 years ago which was negative by Dr. Apple. Patient had ultrasound the gallbladder normal wall no pericholecystic fluid no gallstones, HIDA scan was then completed which showed less than 5% ejection fraction actually was no emptying on the images. Patient denies having abdominal pain currently with eating and states he is able to eat does not try to avoid fatty and greasy foods but does occasionally have a small amount with no symptoms. ROS General General: Yes weight change; No appetite, fatigue, colon cancer or breast cancer HEENT HEENT: No difficulty swallowing, eye injury, eye surgery, swollen glands or hoarseness Endo Endocrine: No thyroid disease, diabetes mellitus, thyroid cancer, Hair loss, heat intolerance or cold intolerance Skin Skin: No rash or changing moles Musc Musculoskeletal: No back problems, arthritis, rheumatoid arthritis, gout or joint pain Cardio Cardiovascular: No murmur, pacemaker, heart disease, atrial fibrillation, high blood pressure, heart attack, heart stent, palpitations, shortness of breat withexertion or chest pain Psych Psychiatric: No depression, anxiety or hearing voices Resp Respiratory: No shortness of breath, No sleep apnea, No cough, No COPD, Yes asthma, No emphysema and No wheezing Gastro Gastrointestinal: No abdominal pain, No nausea or vomiting, No diarrhea, No constipation, No blood in stool, No acid reflux, No hemorrhoids, No ulcers, Yes gallbladder problem and No black,tarry stools Anupam Hematologic: No blood thinners, No blood disorders, No bleeding, No anemia and No blood clots Neuro Neurologic: No numbness and No tingling Exam Const General: cooperative, healthy appearing, comfortable and no acute distress HENMT Head: normocephalic and atraumatic Neck Neck: supple Resp Effort & Inspection: normal respiratory effort Cardio Rate: regular rate GI Inspection: non-distended Palpation: soft and nontender Skin General: no rashes or lesions noted Neuro General: CN's II-XI intact bilaterally Extrem General: normal to inspection Psych Mental Status: mental status grossly normal Attitude: cooperative Assessment and Plan Assessment and Plan (1) Biliary dyskinesia: Status: Acute Plan Patient story is a little atypical as he is complains of little more left upper quadrant pain when having these episodes in July and April. Patient's HIDA does show an ejection fraction of less than 5% actually 0 on the images. However patient is not really having pain and has had some fatty greasy foods but has been avoiding/limiting that in his diet. Reviewed the anatomy with the patient and discussed the procedure: laparoscopic cholecystectomy with possible cholangiograms, possible open. Review risks including but not limited to bleeding, infection, hernia, bile leak, retained gallstones requiring another procedure ERCP- Endoscopic Retrograde Cholangiopancreatography, injury to another organ (bile ducts, common bile duct,small bowel, etc.) and conversion to an open procedure. All questions were answered. Pat Mccartney M.D. Pager: [phone] [facility] [address] [place] [address], [address] [place] [address] Office: [phone] Coding Level of Care Code Off vis,new,level 3 Diagnoses Biliary dyskinesia K82.8 06/07/23 1423 <Electronically signed by Pat Mccartney MD> Date Pat Mccartney MD 06/12/23 0706 <Electronically signed by Pat Mccartney MD> Cosigner Signature (if applicable): CC: Dr. Deb Marroquin MD; Dr. Pat Mccartney MD~ Signed ADDENDUM by Dr. Pat Mccartney MD on 06/12/23 at 0706 Addendum I have examined the patient and the H&P has been reviewed. There are no clinicalchanges since date of exam. 06/12/23 07<Electronically signed by Pat Mccartney MD> Cosigner Signature (if applicable): cc: Dr. Deb Marroquin MD; Dr. Pat Mccartney MD ~* Signed [facility] Work Phone: 1(580) 544-506001-02-2024 Procedure [facility] 06-12-2023 [facility] Medical Records Department [address] [place] [address] History Physical Exam 06/12/23705 MR#: [id number] Acct: [id number] Name: ASHOK NUÑEZ Rep #: [id number] : 1965 58 From: Pat Mccartney MD PCP: Dr. Deb Marroquin MD Status:[facility] Location: [place] [address] History and Physical Date of Admission: 06/12/23 Date of Service: 06/07/23 MR#: [id number] Acct: [id number] Name: ASHOK NUÑEZ Rep #: [id number] : 1965 Provider: Dr. Pat Mccartney MD Age/Sex: 58/M Location: [facility] Status: Signed Intake Vital Signs 06/07/2314:00 Weight: 204 lb BP 110/69 Blood Pressure Location Rt brachial Position Sitting Respiration 17 Pulse 63 Pulse Source Monitor Pulse Oximetry (%) 97 Oxygen Delivery Method room air Intake Visit Reasons: GALLBLADDER Chief Complaint: gallbladder Is patient in pain?: No Allergies No Known Allergies Allergy (Unverified 06/07/23 14:01) Medications fluticasone 250 mcg-salmeterol 50 mcg/dose blistr powdr for inhalation inhalation 09/30/20 [History Confirmed 06/07/23] albuterol sulfate 90 mcg/actuation aerosol inhaler 2 puff inhalation Q6H PRN 06/07/23 [History Confirmed 06/07/23] PFSH Medical History (Updated 06/07/23 @ 14:[address] Pat Mccartney MD) Asthma Hx of malignant lymphoma Surgical History Hx of rhinoplasty Family History (Updated 06/07/23 @ 13:59 by Erica Matias) Mother Heart disease Hypertension Social History (Updated 06/07/23 @ 14:00 by Erica Matias) Smoking Status: Never smoker alcohol intake: never substance use type: does not use HPI HPI HPI: 58-year-old male presents for biliary dyskinesia. Patient states he has had a couple episode of left upper quadrant abdominal pain. Patient states it occurs after he eats he did have nausea with it denies any vomiting. Patient had an episode in July did change his diet at that time and lost about 30 pounds. Patient had another episode in April. Patient went to see his PCP did not need to go to the ER at that time. Patient had reflux years ago depending on the food he ate but has not had that for a while. 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 pylori negative. Patient did follow-up at [facility] was told to have and 17 did not need any further EGDs for this. Patient did have colonoscopy 5 to 6 years ago which was negative by Dr. Apple. Patient had ultrasound the gallbladder normal wall no pericholecystic fluid no gallstones, HIDA scan was then completed which showed less than 5% ejection fraction actually was no emptying on the images. Patient denies having abdominal pain currently with eating and states he is able to eat does not try to avoid fatty and greasy foods but does occasionally have a small amount with no symptoms. ROS General General: Yes weight change; No appetite, fatigue, colon cancer or breast cancer HEENT HEENT: No difficulty swallowing, eye injury, eye surgery, swollen glands or hoarseness Endo Endocrine: No thyroid disease, diabetes mellitus, thyroid cancer, Hair loss, heat intolerance or cold intolerance Skin Skin: No rash or changing moles Musc Musculoskeletal: No back problems, arthritis, rheumatoid arthritis, gout or joint pain Cardio Cardiovascular: No murmur, pacemaker, heart disease, atrial fibrillation, high blood pressure, heart attack, heart stent, palpitations, shortness of breat with exertion or chest pain Psych Psychiatric: No depression, anxiety or hearing voices Resp Respiratory: No shortness of breath, No sleep apnea, No cough, No COPD, Yes asthma, No emphysema and No wheezing Gastro Gastrointestinal: No abdominal pain, No nausea or vomiting, No diarrhea, No constipation, No blood in stool, No acid reflux, No hemorrhoids, No ulcers, Yes gallbladder problem and No black,tarry stools Anupam Hematologic: No blood thinners, No blood disorders, No bleeding, No anemia and No blood clots Neuro Neurologic: No numbness and No tingling Exam Const General: cooperative, healthy appearing, comfortable and no acute distress [facility] Head: normocephalic and atraumatic Neck Neck: supple Resp Effort Inspection: normal respiratory effort Cardio Rate: regular rate GI Inspection: non-distended Palpation: soft and nontender Skin General: no rashes or lesions noted Neuro General: CN's II-XI intact bilaterally Extrem General: normal to inspection Psych Mental Status: mental status grossly normal Attitude: cooperative Assessment and Plan Assessment and Plan (1) Biliary dysk (more content not included)...[facility] 12-01-2021 History of Present illness Narrative* Esteban Laws MD - 12/01/2021 2:15 PM EDT [facility] PATIENT: Ashok Gleason Amshalina CHIEF COMPLAINT: History of gastric MALT lymphoma [...] studies were negative. Overall, these findings were favoredas reactive rather than lymphoma. The patient currently [...] (Oral) Resp 16 Ht 1.854 m (6' 1) Wt 103.6 kg (228 lb 6.4 oz) [...] He does not have any focal deficits. HISTOLOGIST TECHNOLOGIST or dural involvement by marginal zone lymphoma [...] of shared medical record or a letter. Esteban Laws MD Branding Machine Operator Division of Hematology, Lymphoma Program [facility] CC: Deb Marroquin MD [facility] Instructions* Patient Instructions* Mariajose Zaman RN - 12/01/2021 1:55 PM EDT Your Lymphoma Care Team MD Tootie Fair, MARIAJOSE Valdez, MARIAJOSE Short, RONAL Garcia RN Contact Numbers: Clinic Phone & Appointment Changes: [phone] Clinic For Medication Refills: Please plan ahead [...] any questions or concerns. Please call your pharmacyto verify when to lemon picker. All Disability/FMLA Paperwork: Please allow up [...] paperwork is completed and sent if requested. [facility] MY Chart: The medical information you will [...] that you may have. RESOURCES: National Cancer [place]- www.cancer.gov [facility] [employer]- https://cancer.os.edu [employer] Inc- www.cancercare.org Leukemia and Lymphoma Society- LLS.org Peer support groups- www.cancer.os.edu/HOPE or email [email or web address] Fall Prevention at Home Here are some [...] stairs. They should extend beyond the top andbottom stair. Improve the visibility on your stairs. Have good lighting on the stairs. Non- skid surfaces can be applied to wood stairs to prevent sliding. [place] a bright colored line on the edge [...] make sure the backs of your legs aretouching the seat of the chair behind you. [...] may request more written information from the [employer] Information at or email: [email or web address]. 2002 - July 07, 2015. [facility]. This handout is for informational purposes only. Talk with your doctor or health care team if you have any questions about your care. documented in this encounterOS[facility] CenterEvaluation noteNo assessment information availableWOhioHealth [facility] Hospital Work Phone: Evaluation note* Diagnosis MALT lymphoma- Primary Marginal zone lymphoma, unspecified site, extranodal and solid organ sites documented [facility] this encounter [facility]* Diagnosis Onset Date Resolution Status Biliary dyskinesia acute [facility] Work Phone: Evaluation note* Diagnosis Open displaced fracture of middle phalanx of left index finger, initial encounter- Primary documented in this encounter [facility] Work Phone: Evaluation note* Diagnosis Open displaced fracture of distal phalanx of left middle finger, initial encounter- Primary Laceration of index finger of left hand without complication, initial encounter documented in this encounter [facility] Work Phone: Evaluation note* Diagnosis Laceration of index finger of left hand without complication, subsequent encounter- Primary Open displaced fracture of distal phalanx of left middle finger with routine healing, subsequent encounter documented in this encounter [facility] Work Phone: Chief Complaint and Reason for Visit Chief Complaint EORDER HEADACHE Chief Complaint LUQ ABD PAIN *IV & O RAL CONTRAST*/add on HEPATOMEGALY COPY PCP Chief Complaint RUQ PAIN Chief Complaint RUQ PAIN Right upper quadrant pain Chief Complaint RUQ PAIN Right upper quadrant pain GALLBLADDER Reason for Visit Biliary dyskinesia Summary Purpose Family History No Family History Records Found Relationship Condition Age at Onset Recorded Date/T patrick mother Cardiac disease Unknown Hypertension Unknown Advance Directives No Advanced Directives Records Found Advance Directive Response Recorded Date/ Time Living Will No June 07 023 4:24pm Power of Aluminum Siding Mechanic No June 07, 2023 4:24pm Reason for Referral * gastroenteritisgastroenteritis Additional Source Comments Goals (unrecognized section and content) Goals may be documented in a n alternate sectionGoals may be documented in an alternate sectionGoals may be documented in an alternate sectionGoals may be documented in an alternate sectionGoals may be documented in an alternate sectionGoals may be documented in an alternate section Reason for Visit (unrecogniz ed section and content) Reason Comments Follow-up Specialty Diagnoses / Procedures Referred By Mendez jara Referred To Contact Hematology Diagnoses Dx. MALT Lymphoma/ referred by Dr. Deb Marroquin/Dx 2005 Procedures NEW HEMATOLOGY Deb Marroquin MD [address] [place] [address] Esteban Laws MD [address] [place] [address] Referral ID Status Reason Start Date Expiration Date V isits Requested Visits Authorized [id number] New Request 11/10/2021 12/05/2022 1 1 Reason Comments Finger Laceration Left hand laceration from table saw, middle and index finger. Bleeding controlled. Tetanus status unknown Reason Comments Laceration Suspected Fx Laceration Reason Comments Laceration Follow-up Care Teams (unrecognized sec tion and content) Sausage Cooker Relationship Specialty Start Date End Date Deb Marroquin MD [address] [place] [address] PCP - General Family Medicine 10/19/16 Will Mae MB/BIRGIT [address] [place] [id number] Hematology 09/20/16 Esteban Laws MD [address] [place] [address] Hematology 11/23/21 Team Status: Active Member Role Status Dates Dr. Deb Marroquin MD Family Provider Active Dr. Deb Marroquin MD Primary Care Provider Active Team Status: Inactive Member Role Status Dates Dr. Deb Marroquin MD Primary Care Prov ider, Attending Provider, Referring Provider Active Team Status: Inactive Member Role Status Dates Dr. Deb Marroquin MD Primary Care Provider Active Dr. Yohan Apple MD Attending Provider, Referring Provider Active Team Status: Inactive Member Role Status Dates Dr. Deb Marroquin MD Primary Care Provider, Referrin g Provider Active Dr. Pat Mccartney MD Attending Provider Active Team Status: Active Member Role Status Dates Dr. Deb Marroquin MD Primary Care Provider Active Dr. Pat Mccartney MD Attending Provi yobany, Referring Provider, Other Provider Active Team Status: Inactive Member Role Status Dates Dr. Deb Marroquin MD Primary Care Provider, Attendin g Provider Active Team Status: Inactive Member Role Status Dates Dr. Deb Marroquin MD Primary Care Provider Active Dr. Pat Mccartney MD Attending Provider, Referring Provider Active Sausage Cooker Relationship Specialty Start Date End Date Kenia Sy MD [address] [facility] [address] [place] [address] PCP - General Family Medicine 01/11/25 Sausage Cooker Relationship Specialty Start Date End Date Kenia Sy MD [address] [facility] [address] [place] [address] PCP - General Family Medicine 01/11/25 Sausage Cooker Relationship Specialty Start Date End Date Kenia Sy MD [address] [facility] [address] [place] [address] PCP - General Family Medicine 01/11/25 (unrecognized sect ion and content) No Status Records FoundNo Status Records FoundNo Status Records FoundNo Status Records FoundNo Status Records FoundNo Status Records Found INFORMATION SOURCE (unrecogn ized section and content) DATE CREATED AUTHOR 12/02/2021 [facility] DATE CREATED AUTHOR AUTHOR'S ORGANIZ ATION 07/26/2022 [facility] DATE CREATED AUTHOR AUTHOR'S ORGANIZ ATION 04/18/2024 [facility] DATE CREATED AUTHOR AUTHOR'S ORGANIZ ATION 01/12/2025 [facility] DATE CREATED AUTHOR AUTHOR'S ORGANIZ ATION 01/13/2025 [facility] DATE CREATED AUTHOR AUTHOR'S ORGANIZ ATION 02/09/2025 [facility] <item> Privacy Markings (unrecogniz ed section and content) Section Author: Annie Khan PROHIBITION ON REDISCLOSURE OF CONFIDENTIAL INFORMATION This notice accompanies a disclosure of information concerning a client made to you with the consent of such client. Scheduled Active and Recently Administ ered Medications (unrecognized section and content) Medication Order 01/09/2025 01/10/2025 01/11/2025 BUPivacaine HCl (Marcaine) 0.5 % (5 mg/mL) injection 100 mg (COMPLETED) 100 mg (20 mL), injection, Once, On 01/11/25 at 1100, For 1 dose 1215 (Given - Provid er: Hiwot Singh RN) ceFAZolin (Ancef) 1 g in dextrose (iso) IV 50 mL (COMPLETED) 1 g, intravenous, at 100 mL/hr, Administer over 30 Minutes, Once, On 01/11/25 at 1015, For 1 dose, premix bag, Dosing of this medication varies based on severity of illness. Does this patient have sepsis or concern for sepsis (probable or documented infection plus systemic manifestations of infection)? No, Suspected Indication (Select all that apply): Other, Specify: OPEN FRACTURE, Type of Therapy: Definitive, No Cultures, Indications: Other 1028 (New Bag - Prov ider: Hiwot Singh RN)1100 (Stopped - Provider: Hiwot Singh RN) lidocaine (Xylocaine) 10 mg/mL (1 %) injection 20 mL (COMPLETED) 20 mL, intravenous, Once, On 01/11/25 at 1100, For 1 dose 1216 (Given - Provid er: Hiwot Singh, RN) No Frequency Medication Order 01/09/2025 01/10/2025 01/11/2025 bupivacaine PF (Marcaine) injection 0.5 % (5 mg/mL) - [employer] Override Pull (COMPLETED) Starting on 01/11/25 at 1109, For 1 dose, Created by cabinet override 1215 (Given - Provid er: Hiwot Singh RN) FOR RECORDS PERTAINING TO PATIENTS WHO ARE [...] BE BASED ON THE PRIMARY CLINICAL RECORDS. [email or web address] [facility]. provides no warranty or guarantee of the accuracy or completeness of information in this document.
== END | disposition home or self-care (01) ==
LOC: US 11:42
PROVIDERS: PCP Family Medicine; Referring Provider Family Medicine; Visit Provider Family Medicine
DX: E01.0 Iodine-deficiency related diffuse (endemic) goiter (principal)
CPT/HCPCS: 76536